=== PATIENT | female | born 1950 ===

== ENCOUNTER 2016-11-01 08:47 | Emergency (ER) | payer MEDICARE ==
[2016-11-01 08:57] VITALS: TEMP 98.7
[2016-11-01] MEDS ORDERED: Sodium Chloride 0.9% 500 ML IV STA (09:27)
[2016-11-01] MEDS ORDERED: Ciprofloxacin/Dexamethasone OTIC SUSP AS STA (09:29)
--- NOTE | 2016-11-01 09:37 | ED PDOC ---
Arrival/HPI - General Historian: Patient - History of Present Illness Time/Duration: Other (3 days) Context: Home - General Chief Complaint: ENT Problem Time Seen by Provider: 11/01/16 09:12 - History of Present Illness Narrative History of Present Illness (Text): 11/01/16 09:15 This 66 yo female with pmh dm, hiperlipidemia, hypothyroidism, chronic vertigo, tinnitus, s/p cholecystectomy, presents to this ED c/o left ear pain, worsening of vertigo, with nausea x 3 days. Patient admits a recent URI symptoms. She still feels with nasal congestion. Patient denies fever, sob, cp, cough, abdominal pain, vomiting, diarrhea, weakness, paresthesias, diplopia, dysarthria , cms, recent trauma, recent surgery, Denies hearing changes (Caity Singh) Past Medical History - Provider Review Nursing Documentation Reviewed: Yes - Cardiac Hx Cardiac Disorders: Yes - Pulmonary Hx Respiratory Disorders: No - Neurological Hx Neurological Disorder: Yes Hx Vertigo: Yes - HEENT Hx HEENT Disorder: No - Renal Hx Renal Disorder: No - Endocrine/Metabolic Hx Endocrine Disorders: Yes Hx Diabetes Mellitus Type 2: Yes - Hematological/Oncological Hx Blood Disorders: No - Integumentary Hx Dermatological Disorder: No - Musculoskeletal/Rheumatological Hx Musculoskeletal Disorders: No - Gastrointestinal Hx Gastrointestinal Disorders: No - Genitourinary/Gynecological Hx Genitourinary Disorders: No - Psychiatric Hx Psychophysiologic Disorder: No Hx Substance Use: No - Surgical History Hx Cholecystectomy: Yes Family/Social History - Physician Review Nursing Documentation Reviewed: Yes Family/Social History: No Known Family HX Smoking Status: Never Smoked Hx Alcohol Use: No Hx Substance Use: No Allergies/Home Meds Allergies/Adverse Reactions: Allergies No Known Allergies Allergy (Verified 11/01/16 08:56) Home Medications: Home Meds Medication Instructions Recorded Confirmed Empagliflozin [Jardiance] 10 mg PO DAILY 11/01/16 11/01/16 Levothyroxine [Synthroid] 25 mcg PO DAILY 11/01/16 11/01/16 Meclizine [Antivert] 1 tab PO TID PRN 11/01/16 11/01/16 Pioglitazone [Actos] 45 mg PO DAILY 11/01/16 11/01/16 Rosuvastatin Calcium [Crestor] 10 mg PO DAILY 11/01/16 11/01/16 Review of Systems - Review of Systems Constitutional: Normal. absent: Fatigue, Weight Change, Night Sweats Eyes: Normal. absent: Vision Changes, Photophobia ENT: Rhinorrhea, Other (see hpi) Respiratory: Normal Cardiovascular: Normal. absent: Chest Pain, Palpitations Gastrointestinal: Nausea. absent: Abdominal Pain, Vomiting Genitourinary Female: Normal. absent: Frequency, Hematuria Musculoskeletal: Normal. absent: Back Pain, Neck Pain Skin: Normal. absent: Rash Neurological: Dizziness (pmh. chronic vertigo, worsening last 3 days). absent: Headache, Focal Weakness, Gait Changes, Speech Changes, Facial Droop, Disequilibrium, Seizure Endocrine: Normal Hemo/Lymphatic: Normal Psychiatric: Normal Physical Exam Temperature: Afebrile Blood Pressure: Normal Pulse: Regular Respiratory Rate: Normal Appearance: Positive for: Well-Appearing, Non-Toxic, Comfortable Pain Distress: None Mental Status: Positive for: Alert and Oriented X 3 - Systems Exam Head: Present: Atraumatic, Normocephalic Pupils: Present: PERRL Extroacular Muscles: Present: EOMI Conjunctiva: Present: Normal Ears: Present: NORMAL TM. No: Normal Canal (left ear canal mild swelling with trace discharge. No facial rash), TM Bulging, TM Perf Mouth: Present: Moist Mucous Membranes Pharnyx: Present: Normal. No: ERYTHEMA, EXUDATE, TONSILS ENLARGED Nose (External): Present: Atraumatic Nose (Internal): Present: Rhinorrhea (mild) Neck: Present: Normal Range of Motion Respiratory/Chest: Present: Clear to Auscultation, Good Air Exchange. No: Respiratory Distress, Accessory Muscle Use Cardiovascular: Present: Regular Rate and Rhythm, Normal S1, S2. No: Murmurs Abdomen: Present: Normal Bowel Sounds. No: Tenderness, Distention, Peritoneal Signs Back: Present: Normal Inspection Upper Extremity: Present: Normal Inspection. No: Cyanosis, Edema Lower Extremity: Present: Normal Inspection. No: Edema Neurological: Present: GCS=15, CN II-XII Intact, Speech Normal, Motor Func Grossly Intact, Normal Sensory Function, Memory Normal Skin: Present: Warm, Dry, Normal Color. No: Rashes Psychiatric: Present: Alert, Oriented x 3, Normal Insight, Normal Concentration Vital Signs Temp Pulse Resp BP Pulse Ox 11/01/16 14:15 82 18 101/54 L 98 11/01/16 12:53 89 18 98/54 L 96 11/01/16 10:08 69 18 115/60 98 11/01/16 08:56 98.7 F 75 16 112/73 97 Medical Decision Making Re-evaluation Time: 13:39 Reassessment Condition: Re-examined, Improved - Lab Interpretations I have reviewed the lab results: Yes Interpretation: No clinic. lab abnormalty - EKG Interpretation Interpreted by ED Physician: Yes (NSR @ [address] changes. Normal interval ) Type: 12 lead EKG Comparison: No previous EKG avail. ED Course and Treatment: I was available for consultation during PA evaluation. The chart was reviewed by me, and I agree with disposition. The documented history was done by the physician kettleman. The documented physical exam was done by the physician kettleman. The documented procedures were done by the physician kettleman. (Jeremi Long) 11/01/16 12:20 Patient is requesting food. Patient continues with mild dizziness. I will revaluate patient after patient eat her lunch. 11/01/16 13:38 Re-evaluation. Patient feels better. Discussed results and plan with patient who expresses understanding. All questions answered and there is agreement with the plan to discharge home with instructions. Patient stable for discharge. Return if symptoms persist or worsen. Patient stated her symptoms have improved. patient has a normal gait, and she walks without assistance. No neuro focal deficits Patient was given Ciprodex Otic, and instructed in [place] to apply 4 drops on left ear BID x 7 days. (Caity Singh) - Lab Interpretations Microbiology Results: Microbiology Results 11/01/16 11:46 Urine Urine Culture - Final No Growth (<1,000 CFU/ML) Lab Results: 11/01/16 09:35 11/01/16 09:35 Lab Results 11/01/16 11:46: Urine Color Yellow, Urine Appearance Clear, Urine pH 7.0, Ur Specific [place] 1.010, Urine Protein Negative, Urine Glucose (UA) >=1000, Urine Ketones Trace H, Urine Blood Negative, Urine Nitrate Negative, Urine Bilirubin Negative, Urine Urobilinogen 1.0 H, Ur Leukocyte Esterase Negative 11/01/16 09:35: Sodium 143, Potassium 4.2, Chloride 102, Carbon Dioxide 30, Anion Gap 15, BUN 12, Creatinine 0.5, Est GFR ( Amer) > 60, Est GFR (Non- Af Amer) > 60, Random Glucose 110, Calcium 9.6, Magnesium 2.2, Total Bilirubin 0.9, AST 29, ALT 32, Alkaline Phosphatase 83, Lactate Dehydrogenase 436, Total Creatine Kinase 29 L, Troponin I < 0.01, NT-Pro-B Natriuret Pep 153, Total Protein 7.7, Albumin 4.2, Globulin 3.5, Albumin/Globulin Ratio 1.2 11/01/16 09:35: WBC 4.7, RBC 4.02, Hgb 12.5, Hct 38.2, MCV 95.0, MCH 31.1, MCHC 32.7, RDW 13.6, Plt Count 224, MPV 9.8, Gran % 57.4, Lymph % (Auto) 29.6, [place] % (Auto) 10.9 H, Eos % (Auto) 1.5, Baso % (Auto) 0.6, Gran # 2.68, Lymph # 1.4, [place] # 0.5, Eos # 0.1, Baso # 0.03 - RAD Interpretation Narrative RAD Interpretations (Text): 11/01/16 10:23 Accession No. : [id number] Patient Name / ID : SHAWN GÓMEZ / [id number] Exam Date : 11/01/2016 09:47:04 ( Approved ) Study Comment : Sex / Age : F / 66Y Creator : Diogenes Arango MD Dictator : Diogenes Arango MD Windows Desktop Support : Oncology Social Work : Diogenes Arango MD Approver2 : Report Date : 11/01/2016 10:08:31 My Comment : PROCEDURE: CT HEAD WITHOUT CONTRAST. HISTORY: dizziness COMPARISON: None available. TECHNIQUE: Axial computed tomography images were obtained through the head/brain without intravenous contrast. Radiation dose: Total exam DLP = 687 mGy-cm. This CT exam was performed using one or more of the following dose reduction techniques: Automated exposure control, adjustment of the mA and/or kV according to patient size, and/or use of iterative reconstruction technique. FINDINGS: HEMORRHAGE: No intracranial hemorrhage. BRAIN: No mass effect or edema. No atrophy or chronic microvascular ischemic changes. VENTRICLES: Unremarkable. No hydrocephalus. CALVARIUM: Unremarkable. PARANASAL SINUSES: Unremarkable as visualized. No significant inflammatory changes. MASTOID AIR CELLS: Unremarkable as visualized. No inflammatory changes. OTHER FINDINGS: None. IMPRESSION: Normal CT of the Head. 11/01/16 10:24 CXR: NAD (Caity Singh) Radiology Orders: 11/01/16 09:25 HEAD W/O CONTRAST [CT] Stat 11/01/16 09:27 CHEST PORTABLE [RAD] Stat - Medication Orders Current Medication Orders: Discontinued Medications Ciprofloxacin/Dexamethasone (Ciprodex Otic) 4 drop STAT STA Stop: 11/01/16 09:30 Last Admin: 11/01/16 09:59 Dose: 4 drop Sodium Chloride (Sodium Chloride 0.9%) 500 mls @ 999 mls/hr IV .Q31M STA Stop: 11/01/16 09:57 Last Admin: 11/01/16 09:41 Dose: 999 mls/hr Meclizine HCl (Antivert) 50 mg PO STAT STA Stop: 11/01/16 09:28 Last Admin: 11/01/16 10:00 Dose: 50 mg Ondansetron HCl (Zofran Inj) 4 mg IVP STAT STA Stop: 11/01/16 09:29 Last Admin: 11/01/16 10:00 Dose: 4 mg Disposition/Present on Arrival - Present on Arrival Any Indicators Present on Arrival: No History of DVT/PE: No History of Uncontrolled Diabetes: No Urinary Catheter: No History of Decub. Ulcer: No History Surgical Site Infection Following: None - Disposition Have Diagnosis and Disposition been Completed?: Yes Disposition Time: 13:40 Patient Plan: Discharge - Disposition Diagnosis: Benign paroxysmal vertigo, Otitis externa Disposition: HOME/ ROUTINE Condition: GOOD Discharge Instructions (ExitCare): Benign Paroxysmal Positional Vertigo (ED) Additional Instructions: llame a lovelace doctor para seguimiento medico. [place] la medicina lizeth esta prescrita. Llame a la oficina del neurologo y el otorrinolaingologo. Regrese a la emergencia si simptoma empeora. [place] 4 gotas de antibiotico en el oido jacek 2 veces al brent por 7-10 more. Prescriptions: Meclizine [Meclizine*] 25 mg PO Q6 PRN #30 tab PRN Reason: Dizziness Ondansetron ODT [Zofran ODT] 4 mg PO Q4H PRN #15 odt PRN Reason: Nausea/Vomiting Referrals: Jesus Patel Jr., MD [Primary Care Provider] - Follow up with primary Donald Lopez MD [Staff Provider] - Follow up with primary Fidencio Moreno DO [Staff Provider] - Follow up with primary Forms: Fitfully (Hungarian)
[2016-11-01 09:48] LABS: BASO # 0.03 K/mm3 (0.0-2.0); BASO % 0.6 % (0.0-3.0); EOS # 0.1 (0.0-0.7); EOS % 1.5 % (1.5-5.0); GRAN # 2.68 (1.4-6.5); GRAN % 57.4 % (50.0-68.0); HEMOGLOBIN 12.5 gm/dL (12.0-16.0); LYMPH # 1.4 (1.2-3.4); LYMPH % 29.6 % (22.0-35.0); MEAN CORPUSCULAR HEMOGLOBIN 31.1 pg (25.0-35.0); MEAN CORPUSCULAR HGB CONC 32.7 g/dl (31.0-37.0); MEAN PLATELET VOLUME 9.8 fl (7.0-11.0); MONO # 0.5 (0.1-0.6); MONO % 10.9 % (1.0-6.0); PLATELET COUNT 224 10^3/uL (120.0-450.0); RBC 4.02 10^6/uL (3.5-6.1); RED CELL DISTRIBUTION WIDTH 13.6 % (11.5-14.5); WHITE BLOOD COUNT 4.7 10^3/ul (4.5-11.0)
[2016-11-01 10:00] LABS: ALB/GLOB RATIO 1.2 (1.1-1.8); ALBUMIN 4.2 g/dL (3.0-4.8); ALT/SGPT 32 U/L (7-56); AST/SGOT 29 U/L (15-39); BLOOD UREA NITROGEN 12 mg/dL (7-21); CALCIUM 9.6 mg/dL (8.4-10.5); GFR AFRICAN-AMERICAN > 60; GFR NON-AFRICAN AMERICAN > 60; MAGNESIUM 2.2 mg/dL (1.7-2.2)
[2016-11-01 10:09] VITALS: RESP 18
--- NOTE | 2016-11-01 10:10 | CT ---
PROCEDURE: CT HEAD WITHOUT CONTRAST. HISTORY: dizziness COMPARISON: None available. TECHNIQUE: Axial computed tomography images were obtained through the head/brain without intravenous contrast. Radiation dose: Total exam DLP = 687 mGy-cm. This CT exam was performed using one or more of the following dose reduction techniques: Automated exposure control, adjustment of the mA and/or kV according to patient size, and/or use of iterative reconstruction technique. FINDINGS: HEMORRHAGE: No intracranial hemorrhage. BRAIN: No mass effect or edema. No atrophy or chronic microvascular ischemic changes. VENTRICLES: Unremarkable. No hydrocephalus. CALVARIUM: Unremarkable. PARANASAL SINUSES: Unremarkable as visualized. No significant inflammatory changes. MASTOID AIR CELLS: Unremarkable as visualized. No inflammatory changes. OTHER FINDINGS: None. IMPRESSION: Normal CT of the Head.
[2016-11-01 10:11] LABS: B-TYPE NATRIURETIC PEPTIDE 153 pg/mL (0-450)
[2016-11-01 10:18] LABS: TROPONIN I < 0.01 ng/mL
[2016-11-01 11:50] LABS: URINE BILIRUBIN NEGATIVE (NEGATIVE); URINE BLOOD NEGATIVE (NEGATIVE); URINE GLUCOSE (UA) >=1000 mg/dL (NEGATIVE); URINE LEUKOCYTE ESTERASE NEGATIVE Leu/uL (NEGATIVE); URINE NITRATE NEGATIVE (NEGATIVE); URINE PROTEIN NEGATIVE mg/dL (<30 mg/dL)
[2016-11-01 11:51] LABS: URINE APPEARANCE CLEAR (CLEAR); URINE COLOR YELLOW (YELLOW)
--- NOTE | 2016-11-01 12:03 | CARD ---
APPROVED REPORT EKG Measurement Heart [id number] <Conclusion> Normal sinus rhythm Normal ECG
--- NOTE | 2016-11-01 14:18 | RAD ---
HISTORY: dizziness COMPARISON: Chest x-ray performed 11/01/16 TECHNIQUE: Chest, one view. FINDINGS: Examination limited by habitus. LUNGS: No focal consolidation. Please note that chest x-ray has limited sensitivity for the detection of pulmonary masses. PLEURA: No significant pleural effusion identified. No definite pneumothorax . CARDIOVASCULAR: Heart size appears within normal limits. Atherosclerotic calcifications of the aortic knob. OSSEOUS STRUCTURES: Degenerative changes. VISUALIZED UPPER ABDOMEN: Right upper quadrant surgical clips. OTHER FINDINGS: None. IMPRESSION: No focal consolidation, significant pleural effusion, or definite pneumothorax identified.
[2016-11-01 14:25] VITALS: BP 101/54; PULSE 82; O2SAT 98
== END 2016-11-01 14:15 | disposition home or self-care (01) ==
LOC: MERGE 08:47 → ED 08:47
DX: H81.10 Benign paroxysmal vertigo, unspecified ear (principal); H60.92 Unspecified otitis externa, left ear
CPT/HCPCS: 70450; 71010; 80053; 81003; 82550; 83615; 83735; 83880; 84484; 85025; 87086; 93005; 96374; 99284; J2405; J7040

== ENCOUNTER 2016-11-22 22:39 | Inpatient (IN) | payer MEDICARE, OTHER ==
[2016-11-22] MEDS ORDERED: cefTRIAXone 1 gm 1 GM/100 ML BAG IVPB STA (23:18)
[2016-11-22] MEDS ORDERED: Vancomycin 1gm in NS 250ml 1 GM/250 ML BAG IVPB STA (23:18)
[2016-11-22 23:43] LABS: VENOUS BLOOD GAS BASE EXCESS 0.9 mmol/L (0.0-2.0); VENOUS BLOOD PH 7.27 (7.32-7.43)
--- NOTE | 2016-11-22 23:43 | ED PDOC ---
Arrival/HPI - General Historian: Patient - History of Present Illness Time/Duration: 24 hours Symptom Onset: Gradual Symptom Course: Unchanged Quality: Fullness Severity Level: 6 Activities at Onset: Rest Context: Sitting - General Chief Complaint: GI Problem Time Seen by Provider: 11/22/16 22:46 - History of Present Illness Narrative History of Present Illness (Text): 11/22/16 23:29 This is a 66 yr. old female with a past medical history of hyperlipidemia, hypothyroidism, chronic vertigo, and s/p cholecystectomy who comes to [facility] complaining of abdominal pain, nausea, vomiting, and diarrhea for one day. The patient says the pain is located epigastrium and describes the pain as gnawing in nature with no radiation. The patient reports being able to tolerate liquids but unable to tolerate food without vomiting. The patient reports three episodes of vomiting were she described having an acidic taste in her mouth afterwards. She reports taking a Nexium for her symptoms but denies any improvement in them. At the same onset of her above stated symptoms she also reports her urine being very warm upon urination. She reports some chills and diarrhea. She denies any chest pain, or any other complaints. 11/23/16 04:12 (Zhang Cooper) Past Medical History - Provider Review Nursing Documentation Reviewed: Yes - Infectious Disease Hx of Infectious Diseases: None - Cardiac Hx Cardiac Disorders: Yes - Pulmonary Hx Respiratory Disorders: No - Neurological Hx Neurological Disorder: Yes Hx Vertigo: Yes - HEENT Hx HEENT Disorder: No - Renal Hx Renal Disorder: No - Endocrine/Metabolic Hx Endocrine Disorders: Yes Hx Diabetes Mellitus Type 2: Yes - Hematological/Oncological Hx Blood Disorders: No - Integumentary Hx Dermatological Disorder: No - Musculoskeletal/Rheumatological Hx Musculoskeletal Disorders: No - Gastrointestinal Hx Gastrointestinal Disorders: No - Genitourinary/Gynecological Hx Genitourinary Disorders: No - Psychiatric Hx Psychophysiologic Disorder: No Hx Substance Use: No - Surgical History Hx Cholecystectomy: Yes - Anesthesia Hx Anesthesia: Yes Hx Anesthesia Reactions: No Hx Malignant Hyperthermia: No Family/Social History - Physician Review Nursing Documentation Reviewed: Yes Family/Social History: No Known Family HX Smoking Status: Never Smoked Hx Alcohol Use: No Hx Substance Use: No Allergies/Home Meds Allergies/Adverse Reactions: Allergies No Known Allergies Allergy (Verified 11/01/16 08:56) Home Medications: Home Meds Medication Instructions Recorded Confirmed Empagliflozin [Jardiance] 10 mg PO DAILY 11/01/16 11/22/16 Levothyroxine [Synthroid] 25 mcg PO DAILY 11/01/16 11/22/16 Pioglitazone [Actos] 45 mg PO DAILY 11/01/16 11/22/16 Rosuvastatin Calcium [Crestor] 10 mg PO DAILY 11/01/16 11/22/16 Alendronate [Fosamax] 1 tab PO Q7D 11/22/16 11/22/16 Calcium Carbonate [Calcium] 1 tab PO DAILY 11/22/16 11/22/16 Cyanocobalamin [Vitamin B12 100 250 mcg PO DAILY 11/22/16 11/22/16 mcg Tab] Ergocalciferol [Drisdol 50,000 1 cap PO Q7D 11/22/16 11/22/16 Intl Units Cap] Linaclotide [Linzess] 1 cap PO DAILY 11/22/16 11/22/16 Review of Systems - Physician Review All systems were reviewed & negative as marked: Yes - Review of Systems Constitutional: Fevers, Night Sweats. absent: Other Eyes: Normal. absent: Vision Changes, Eye Pain ENT: Normal. absent: Sore Throat, Rhinorrhea, Sinus Congestion Respiratory: Normal. absent: Cough, Sputum, Wheezing Cardiovascular: Normal. absent: Chest Pain, Palpitations, Syncope Gastrointestinal: Abdominal Pain (epigastric discomfort reported), Diarrhea (3 episodes of non-bloody loose stools), Nausea, Vomiting, Food Intolerance (can't keep food down). absent: Constipation, Hematochezia, Hematemesis Genitourinary Female: Other (reports increase in warmth upon urinating). absent : Frequency, Hematuria Musculoskeletal: Normal. absent: Back Pain, Myalgias Skin: Normal. absent: Rash, Laceration, Cellulitis Neurological: Normal. absent: Headache, Dizziness, Focal Weakness Endocrine: Normal. absent: Polyuria, Polydipsia Hemo/Lymphatic: Normal. absent: Easy Bleeding, Easy Bruising Psychiatric: Normal Physical Exam Vital Signs Reviewed: Yes Temperature: Febrile Blood Pressure: Normal Pulse: Tachycardic Respiratory Rate: Normal Appearance: Positive for: Well-Appearing, Non-Toxic, Comfortable Pain Distress: Mild Mental Status: Positive for: Alert and Oriented X 3 - Systems Exam Head: Present: Atraumatic, Normocephalic Pupils: Present: PERRL. No: Sluggish Extroacular Muscles: Present: EOMI. No: Gaze Palsy Conjunctiva: Present: Normal. No: Injected, Icteric Mouth: Present: Moist Mucous Membranes, Normal Tounge. No: Drooling Pharnyx: Present: Normal. No: ERYTHEMA, EXUDATE, Peritonsilar Swelling Neck: Present: Normal Range of Motion. No: JVD, Lymphadenopathy Respiratory/Chest: Present: Clear to Auscultation, Good Air Exchange. No: Respiratory Distress, Accessory Muscle Use, Wheezes, Decreased Breath Sounds Cardiovascular: Present: Normal S1, S2, Tachycardic. No: Bradycardic Abdomen: Present: Tenderness (located midepigastrium), Normal Bowel Sounds. No : Distention, Peritoneal Signs, Guarding Back: Present: Normal Inspection. No: CVA Tenderness Upper Extremity: Present: Normal Inspection. No: Edema, Swelling, Erythema Lower Extremity: Present: Normal Inspection. No: Edema Neurological: Present: CN II-XII Intact, Speech Normal Skin: Present: Warm, Dry, Normal Color. No: Rashes Psychiatric: Present: Alert, Oriented x 3, Normal Insight Medical Decision Making ED Course and Treatment: 11/22/16 23:50 Patient came into [facility] with complaints of nausea, vomiting and diarrhea for one day. I ordered labs including, cbc w/diff, cmp, chest xray,u/a, urine cx, and blood cx. Patient will be re-evaluated once lab results return. Chest xray: Possible Right lower lobe consolidation Blood gas showed lactate level of 3.0. Code kashif was called. After initial blood work return a CT of the chest, abdomen and pelvis with contrast was ordered to r/o any intra-abdominal abscess. Patient will be admitted to Dr. Pond Service. 11/23/16 03:27 (Zhang Cooper) 11/23/16 01:19 Patient seen and examined with resident Came up with treatment and disposition plan with resident 11/23/16 03:33 fluids and abx ordered repeat LA decreased pt states she has no PMD at [facility] will be admitted to Dr. Lindsey service for further w/u pt aware of and agrees with plan 11/23/16 06:[address] Pond in detail, agrees with admission to her service asked to add flagyl and fluids to pt's management, and Dr. Anguiano on consult ( Jeremi Long) - Lab Interpretations Lab Results: 11/22/16 23:20 11/22/16 23:20 Lab Results 11/23/16 02:35: pO2 220 H, VBG pH 7.39, VBG pCO2 40.0, VBG HCO3 24.2, VBG Total CO2 25.4, VBG O2 Sat (Calc) 98.7 H, VBG Base Excess -0.7 L, VBG Potassium 2.9 L , Sodium 143.0, Chloride 112.0 H, Glucose 132 H, Lactate 0.9, FiO2 21.0, Venous Blood Potassium 2.9 L 11/23/16 00:20: Urine Color Yellow, Urine Appearance Clear, Urine pH 7.0, Ur Specific [place] 1.010, Urine Protein Negative, Urine Glucose (UA) >=1000, Urine Ketones Negative, Urine Blood Trace-intact H, Urine Nitrate Negative, Urine Bilirubin Negative, Urine Urobilinogen 1.0 H, Ur Leukocyte Esterase Negative, Urine RBC 0 - 2, Urine WBC 0 - 2, Ur Epithelial Cells 3 - 4, Urine Bacteria Mod, Urine Other Utrans 11/22/16 23:20: Sodium 142, Chloride 103, Potassium 3.4 L, Carbon Dioxide 29, Anion Gap 13, BUN 14, Creatinine 0.6, Est GFR ( Amer) > 60, Est GFR (Non- Af Amer) > 60, Random Glucose 105, Calcium 9.1, Phosphorus 3.3, Magnesium 2.0, Total Bilirubin 1.5 H, AST 2502 H, ALT 893 H, Alkaline Phosphatase 176 H, Total Protein 7.6, Albumin 4.6, Globulin 3.0, Albumin/Globulin Ratio 1.5 11/22/16 23:20: pO2 27 L, VBG pH 7.27 L, VBG pCO2 64.0 H, VBG HCO3 29.4 H, VBG Total CO2 31.4 H, VBG O2 Sat (Calc) 52.8, VBG Base Excess 0.9, VBG Potassium 3.4 L, Sodium 141.0, Chloride 104.0, Glucose 109 H, Lactate 3.0 H, FiO2 21.0, Venous Blood Potassium 3.4 L 11/22/16 23:20: PT 10.6, INR 0.98, APTT 23.8 11/22/16 23:20: WBC 3.7 L D, RBC 3.85, Hgb 12.1, Hct 37.1, MCV 96.4, MCH 31.4, MCHC 32.6, RDW 14.1, Plt Count 192, MPV 9.8, Gran % 88.1 H, Lymph % (Auto) 10.8 L, [place] % (Auto) 1.1, Eos % (Auto) 0.0 L, Baso % (Auto) 0.0, Gran # 3.27, Lymph # 0.4 L, [place] # 0.0 L, Eos # 0.0, Baso # 0.00 - RAD Interpretation Radiology Orders: 11/22/16 23:18 CHEST PORTABLE [RAD] Stat 11/23/16 00:11 CHEST,ABDOMEN,PELVIS W/WO IV [CT] Stat - Medication Orders Current Medication Orders: Acetaminophen (Tylenol 325mg Tab) 975 mg PO ONCE PRN PRN Reason: Fever >100.4 F Stop: 11/23/16 07:00 Last Admin: 11/22/16 23:42 Dose: 975 mg Re-Assess: [facility] Pain/Vitals Document 11/23/16 00:42 RD (Rec: 11/23/16 01:35 RD [facility] [id number]) Vitals Temperature (97.6 F-99.6 F) 100.9 F Temperature Source Rectal Metronidazole (Flagyl) 100 mls @ 100 mls/hr IVPB STAT STA PRN Reason: Protocol Stop: 11/23/16 07:33 Discontinued Medications Ceftriaxone Sodium (Rocephin 1 Gram Ivpb) 1 gm in 100 mls @ 200 mls/hr IVPB STAT STA PRN Reason: Protocol Stop: 11/22/16 23:47 Last Admin: 11/22/16 23:42 Dose: 200 mls/hr Sodium Chloride 2,500 ml/ IV (SUPPLIES) 2,500 mls @ 3,674.1 mls/hr IV ONCE ONE PRN Reason: 60 ML/KG/HR Stop: 11/22/16 23:19 Last Admin: 11/22/16 23:42 Dose: 3,674.1 mls/hr Vancomycin HCl (Vancomycin 1gm) 1 gm in 250 mls @ 167 mls/hr IVPB STAT STA PRN Reason: Protocol Stop: 11/23/16 00:47 Last Admin: 11/23/16 00:04 Dose: 167 mls/hr Iohexol (Omnipaque 350 100 Ml) Confirm Administered Dose 350 mg .ROUTE .[employer]-MED ONE Stop: 11/23/16 01:03 Disposition/Present on Arrival - Present on Arrival Any Indicators Present on Arrival: No History of DVT/PE: No History of Uncontrolled Diabetes: No Urinary Catheter: No History of Decub. Ulcer: No History Surgical Site Infection Following: None - Disposition Have Diagnosis and Disposition been Completed?: Yes Disposition Time: 03:28 Patient Plan: Admission - Disposition Diagnosis: Sepsis Disposition: HOSPITALIZED Patient Problems: Current Active Problems Problem Status Onset Sepsis Acute Condition: FAIR
[2016-11-22 23:47] LABS: GRAN # 3.27 (1.4-6.5); GRAN % 88.1 % (50.0-68.0); HEMATOCRIT 37.1 % (36.0-48.0); LYMPH # 0.4 (1.2-3.4); LYMPH % 10.8 % (22.0-35.0); MEAN CELL VOLUME 96.4 fl (80.0-105.0); MEAN CORPUSCULAR HEMOGLOBIN 31.4 pg (25.0-35.0); MEAN CORPUSCULAR HGB CONC 32.6 g/dl (31.0-37.0); MEAN PLATELET VOLUME 9.8 fl (7.0-11.0); MONO % 1.1 % (1.0-6.0); RED CELL DISTRIBUTION WIDTH 14.1 % (11.5-14.5); WHITE BLOOD COUNT 3.7 10^3/ul (4.5-11.0)
[2016-11-22 23:52] LABS: ALB/GLOB RATIO 1.5 (1.1-1.8); ALKALINE PHOSPHATASE 176 U/L (38-133); ALT/SGPT 893 U/L (7-56); BILIRUBIN,TOTAL 1.5 mg/dL (0.2-1.3); BLOOD UREA NITROGEN 14 mg/dL (7-21); CALCIUM 9.1 mg/dL (8.4-10.5); CARBON DIOXIDE 29 mmol/L (21-33); CHLORIDE 103 mmol/L (98-107); GFR AFRICAN-AMERICAN > 60; GLUCOSE,RANDOM 105 mg/dL (70-110); PHOSPHOROUS 3.3 mg/dL (2.5-4.5); POTASSIUM 3.4 mmol/L (3.6-5.0); SODIUM 142 mmol/L (132-148); TOTAL PROTEIN 7.6 g/dL (5.8-8.3)
[2016-11-22 23:55] LABS: INR 0.98 (0.93-1.08); PARTIAL THROMBOPLASTIN TIME 23.8 Seconds (23.7-30.8)
[2016-11-23 00:13] LABS: AST/SGOT 2502 U/L (15-39)
--- NOTE | 2016-11-23 00:19 | PCM.SEPTIC ---
Sepsis Progress Note - Reassessment Type Date of Evaluation: 11/23/16 Time of Evaluation: 00:19 Reassessment Type: Non-invasive reassessment - Non Invasive Reassessment Were the most recent vital sign reviewed: Yes Vital Sign (Latest): Temp Pulse Resp BP Pulse Ox 103.9 F H 122 H 18 103/42 L 98 11/22/16 23:42 11/22/16 23:59 11/22/16 23:59 11/22/16 23:59 11/22/16 23:59 Cardiovascular: Yes: Regular Rate, Rhythm, Tachycardia Respiratory: Yes: Normal Breath Sounds Capillary Refill: Normal (Less than 2 sec) Pulses: Normal Radial, Normal Dorsalis Pedis, Normal Posterior Tibialis Skin: Warm, Dry
[2016-11-23 00:35] LABS: URINE BILIRUBIN NEGATIVE (NEGATIVE); URINE BLOOD TRACE-INTACT (NEGATIVE); URINE GLUCOSE (UA) >=1000 mg/dL (NEGATIVE); URINE KETONE NEGATIVE (NEGATIVE); URINE LEUKOCYTE ESTERASE NEGATIVE Leu/uL (NEGATIVE); URINE PROTEIN NEGATIVE mg/dL (<30 mg/dL)
[2016-11-23 00:39] LABS: URINE APPEARANCE CLEAR (CLEAR); URINE COLOR YELLOW (YELLOW)
[2016-11-23] MEDS ORDERED: Iohexol 350 MG/100 ML VIAL ONE (01:02)
[2016-11-23 01:06] LABS: URINE BACTERIA MOD (NEG); URINE RBC 0 - 2 /hpf (0-2); URINE WBC 0 - 2 /hpf (0-6)
--- NOTE | 2016-11-23 02:49 | CT ---
EXAM: CT Chest Without and With Intravenous Contrast CLINICAL HISTORY: 66 years old, female; Pain; Abdominal pain; Chest pain; Patient HX: R/O intrabdominal abscess TECHNIQUE: Axial computed tomography images of the chest without and with intravenous contrast. All CT scans at this facility use one or more dose reduction techniques, viz.: automated exposure control; ma/kV adjustment per patient size (including targeted exams where dose is matched to indication; i.e. head); or iterative reconstruction technique. Coronal and sagittal reformatted images were created and reviewed. CONTRAST: 45 mL of OMNIPAQUE 350 administered intravenously. COMPARISON: No relevant prior studies available. FINDINGS: Lungs: Mild underinflation. Mild mosaic pattern of lung parenchyma. Mild interlobular septal thickening. No consolidation. 0.3 cm RIGHT upper lobe nodule. Pleural space: No pneumothorax. No significant effusion. Heart: No cardiomegaly. No significant pericardial effusion. Thyroid: Few subcentimeter cysts or nodules. Bones/joints: Small calcification along LEFT shoulder. Mild degenerative changes of spine. No acute fracture. Soft tissues: Unremarkable. Vasculature: Mild atherosclerotic disease. No aneurysm. Lymph nodes: No pathologically enlarged lymph nodes. IMPRESSION: 1. No intrathoracic abscess. 2. Possible early interstitial edema. Clinical correlation is needed. 3. Pulmonary nodule. For low-risk patients, no follow-up is necessary. For high-risk patients (smoking history or other known risk factors) an optional CT at 12 months could be performed. 4. Incidental/non-acute findings are described above. EXAM: CT Abdomen and Pelvis Without and With Intravenous Contrast CLINICAL HISTORY: 66 years old, female; Pain; Abdominal pain; Chest pain; Patient HX: R/O intrabdominal abscess TECHNIQUE: Axial computed tomography images of the abdomen and pelvis without and with intravenous contrast. All CT scans at this facility use one or more dose reduction techniques, viz.: automated exposure control; ma/kV adjustment per patient size (including targeted exams where dose is matched to indication; i.e. head); or iterative reconstruction technique. Coronal and sagittal reformatted images were created and reviewed. CONTRAST: 45 mL of OMNIPAQUE 350 administered intravenously. COMPARISON: No relevant prior studies available. FINDINGS: ABDOMEN: Liver: Mild periportal edema. Gallbladder and bile ducts: Cholecystectomy. No ductal dilation. Pancreas: Unremarkable. No mass. No ductal dilation. Spleen: No splenomegaly. Adrenals: No mass. Kidneys and ureters: Probable LEFT renal cyst. No hydronephrosis. Stomach and bowel: No definite mural thickening. No obstruction. Appendix: No findings to suggest acute appendicitis. PELVIS: Bladder: Unremarkable. No mass. No stones. Reproductive: Unremarkable as visualized. ABDOMEN and PELVIS: Intraperitoneal space: Trace free fluid within abdomen and pelvis. No free air. Bones/joints: Degenerative changes of spine. No acute fracture. Soft tissues: Unremarkable. Vasculature: Mild atherosclerotic disease. No aneurysm. Lymph nodes: No pathologically enlarged lymph nodes. IMPRESSION: 1. No intraabdominal abscess. 2. Trace ascites. 3. Periportal edema, nonspecific. 4. Incidental/non-acute findings are described above.
[2016-11-23 03:12] LABS: VENOUS BLOOD GAS BASE EXCESS -0.7 mmol/L (0.0-2.0); VENOUS BLOOD PH 7.39 (7.32-7.43)
[2016-11-23] MEDS ORDERED: metroNIDAZOLE IV 500 mg/100 ml 500 MG/100 ML BAG IVPB STA (06:34)
[2016-11-23] MEDS ORDERED: Sodium Chloride 0.9% 1,000 ML IV SCH (06:45)
--- NOTE | 2016-11-23 07:18 | PCM.SEPTIC ---
Sepsis Progress Note - Reassessment Type Date of Evaluation: 11/23/16 Time of Evaluation: 06:00 Reassessment Type: Non-invasive reassessment - Non Invasive Reassessment Were the most recent vital sign reviewed: Yes Vital Sign (Latest): Temp Pulse Resp BP Pulse Ox 100.4 F H 110 H 17 100/48 L 97 11/23/16 03:00 11/23/16 03:00 11/23/16 03:00 11/23/16 03:00 11/23/16 03:00 Cardiovascular: Yes: Regular Rate, Rhythm Respiratory: Yes: Normal Breath Sounds Capillary Refill: Normal (Less than 2 sec) Pulses: Normal Radial, Normal Dorsalis Pedis, Normal Posterior Tibialis Skin: Normal Color, Warm, Dry
[2016-11-23 10:17] LABS: VENOUS BLOOD GAS BASE EXCESS -1.3 mmol/L (0.0-2.0); VENOUS BLOOD PH 7.34 (7.32-7.43)
[2016-11-23] MEDS ORDERED: Potassium Chloride 20 mEq ER Tab PO ONE (10:43)
--- NOTE | 2016-11-23 11:15 | RAD ---
HISTORY: Sepsis Patient COMPARISON: 11/01/2016 FINDINGS: LUNGS: Bandlike opacity at both lung bases likely subsegmental atelectasis. Rule out developing pneumonia. Followup advised. PLEURA: No significant pleural effusion identified, no pneumothorax apparent. CARDIOVASCULAR: Normal heart size. Right hilar prominence most likely secondary to oblique positioning. OSSEOUS STRUCTURES: No significant abnormalities. VISUALIZED UPPER ABDOMEN: Normal. OTHER FINDINGS: None. IMPRESSION: Probable bibasilar subsegmental atelectasis. Rule out developing pneumonia. Followup advised.
[2016-11-23] MEDS: Insulin Reg-LOW-Coverage SC SCH ×3 (11:30→21:42)
[2016-11-23 12:41] LABS: ALB/GLOB RATIO 1.3 (1.1-1.8); ALKALINE PHOSPHATASE 142 U/L (38-133); ALT/SGPT 730 U/L (7-56); BILIRUBIN,TOTAL 1.1 mg/dL (0.2-1.3); BLOOD UREA NITROGEN 10 mg/dL (7-21); CALCIUM 8.3 mg/dL (8.4-10.5); CARBON DIOXIDE 24 mmol/L (21-33); CHLORIDE 108 mmol/L (98-107); GFR AFRICAN-AMERICAN > 60; GLUCOSE,RANDOM 100 mg/dL (70-110); POTASSIUM 3.2 mmol/L (3.6-5.0); SODIUM 140 mmol/L (132-148); TOTAL PROTEIN 5.9 g/dL (5.8-8.3)
[2016-11-23 12:48] LABS: AST/SGOT 1175 U/L (15-39)
--- NOTE | 2016-11-23 13:24 | CARD ---
APPROVED REPORT EKG Measurement Heart [id number] <Conclusion> Sinus tachycardia Possible Left atrial enlargement Borderline ECG
[2016-11-23] MEDS: metroNIDAZOLE IV 500 mg/100 ml 500 MG/100 ML BAG IVPB SCH ×2 (14:01→21:29)
[2016-11-23 14:28] LABS: VENOUS BLOOD GAS BASE EXCESS -1.3 mmol/L (0.0-2.0); VENOUS BLOOD PH 7.36 (7.32-7.43)
[2016-11-23 17:08] VITALS: BMI 26.9
[2016-11-24] MEDS: metroNIDAZOLE IV 500 mg/100 ml 500 MG/100 ML BAG IVPB SCH ×3 (06:07→22:05)
[2016-11-24] MEDS: Levothyroxine 25 MCG TAB PO SCH (06:08)
--- NOTE | 2016-11-24 06:38 | HP ---
DATE: 11/23/2016 HISTORY OF PRESENT ILLNESS: This 66-year-old female was examined at her bedside in the presences of her and nurse Jane Lazaro, registered nurse. The patient presented to [facility] ER late last evening with a chief complaint of abdominal pain with associated nausea, vomiting, and diarrhea for 24 hours. The patient has a past medical history of hyperlipidemia, hypothyroidism, chronic vertigo and is status post cholecystectomy. The patient described the discomfort in her abdomen as mid epigastric and stated it was worse after she ate; however, on the evening of admission she was unable to tolerate any food without vomiting. The patient admitted to 3 episodes of vomiting, felt acid reflux, and also had tried Nexium [id number] without relief. The patient in the emergency room was noted to have fever, neutropenia, and markedly elevated liver function testing with hypokalemia and was admitted for further evaluation of the above. The patient states she follows with Dr. Jesus Patel as her primary care physician and also was treated for GI complaints of constipation alternating with diarrhea for which she takes Linzess daily. She also stated she has a history of vitamin D deficiency, osteoporosis, hyperlipidemia, [id number] diabetes mellitus and hypothyroidism. OUTPATIENT MEDICATION: Included Linzess, Fosamax, weekly Drisdol, vitamin B12 daily, calcium carbonate daily, Crestor, Actos, Synthroid, and Jardiance. ALLERGIES: SHE DENIED ANY ALLERGIES TO MEDICATION. SOCIAL HISTORY: She stated she was non drinker, non smoker or non-IV drug misuser. She is a retired homemaker. FAMILY HISTORY: Noncontributory. PHYSICAL EXAMINATION GENERAL: The patient is in a normal sinus rhythm on the laundry housekeeper. There were no reports of ectopy or tachycardia. VITAL SIGNS: In the emergency room, she was noted to have a fever of 100.9 with a pulse of 115. At present, her temperature is 97, respirations 18, pulse 96, blood pressure 103/52 with the pulse ox of 97% on room air. community placement worker shows normal sinus rhythm. HEENT: Head is normocephalic, atraumatic. Eyes: No icterus. Ears: Clear. Throat: Noninjected. NECK: Supple. HEART: Regular S1 and S2. LUNGS: Clear to auscultation. ABDOMEN: Soft, nontender. No palpable organomegaly. No rebound, no guarding, no tenderness. EXTREMITIES: Show no clubbing, no cyanosis, no edema. SKIN: Without rash. NEUROLOGIC: Intact. PSYCHOLOGIC: Alert. VASCULAR: Legs are warm to touch. LABORATORY DATA: Admission potassium 3.4, bilirubin on admission 1.5, AST 2502, ALT 893, alkaline phosphatase 176. At present, her electrolytes are sodium 140, potassium 3.2, chloride 108, bicarb 24, BUN 10, creatinine 0.5, random blood sugar 177. Magnesium level is normal at 2.0, bilirubin 1.1, AST 1175, ALT 730, alk phos 142. T4 normal at 7.3. White count 3700, hemoglobin 12.1, hematocrit 37.1, platelets 192,000. PT/INR is 0.98, PTT 23.8, normal. Urinalysis: Moderate bacteria. Chest x-ray: Showed probable bibasilar subsegmental atelectasis, rule out developing pneumonia, followup advised. CT of chest, abdomen and pelvis showed no effusion, no consolidation at 0.3 cm right upper lobe nodule for which a 12-month CT followup was recommended. The patient was told to do this fup CT with her PMD as recommended. Abdominal pelvic CT showed no intraabdominal abscess, trace ascites, periportal edema, nonspecific, with no pathological enlarged lymph nodes noted. Blood and urine culture were sent. The patient denied any cough, fever or chills at present. IMPRESSION: This is a 66-year-old female with probable sepsis, elevated liver function testing, rule out hepatitis also with comorbidities of irritable bowel syndrome, history of vitamin D deficiency, osteoporosis, hypokalemia, hyperlipidemia, [id number] diabetes mellitus, hyperthyroidism. PLAN: At present is to continue Rocephin 1 g IV q. 24, Flagyl 500 mg IV q. 8 while awaiting infectious disease consultation by Dr. Guy Laughlin. Also, the patient will be given regular low dose insulin coverage a.c. meals and at bedtime, Pepcid 20 mg p.o. b.i.d., Synthroid 25 mcg p.o. daily, and Zofran 4 mg IV q. 6 hours p.r.n. nausea and vomiting. The patient will have a repeat comprehensive metabolic panel as well as a CBC in the a.m. She is awaiting gastrointestinal evaluation by Dr. Michelle Anguiano from GI. Oral potassium 40 mEq has been ordered with a repeat potassium level ordered for the a.m. with hypokaliemia most likely secondary to her episodes of vomiting on admission. She continues on heart healthy soft plan, diabetic diet and IV fluids have been discontinued since the patient is able to tolerate oral medication, fluids, and food. All of the above has been discussed in detail with the patient, her family, her nurse, and co-consultants. The patient will remain on the cardiac unit. Adilene Pond MD MTDD
[2016-11-24 07:41] LABS: HEMATOCRIT 30.9 % (36.0-48.0); MEAN CELL VOLUME 95.1 fl (80.0-105.0); MEAN CORPUSCULAR HEMOGLOBIN 31.4 pg (25.0-35.0); RED CELL DISTRIBUTION WIDTH 14.7 % (11.5-14.5); WHITE BLOOD COUNT 6.3 10^3/ul (4.5-11.0)
[2016-11-24] MEDS: Insulin Reg-LOW-Coverage SC SCH ×4 (07:51→22:03)
[2016-11-24 07:59] LABS: ALB/GLOB RATIO 1.1 (1.1-1.8); ALKALINE PHOSPHATASE 123 U/L (38-133); ALT/SGPT 448 U/L (7-56); AST/SGOT 384 U/L (15-39); BILIRUBIN,TOTAL 0.9 mg/dL (0.2-1.3); BLOOD UREA NITROGEN 7 mg/dL (7-21); CALCIUM 8.2 mg/dL (8.4-10.5); CARBON DIOXIDE 25 mmol/L (21-33); CHLORIDE 107 mmol/L (98-107); GFR AFRICAN-AMERICAN > 60; GLUCOSE,RANDOM 75 mg/dL (70-110); POTASSIUM 3.2 mmol/L (3.6-5.0); SODIUM 138 mmol/L (132-148); TOTAL PROTEIN 5.5 g/dL (5.8-8.3)
--- NOTE | 2016-11-24 08:35 | CP.PCM.CON ---
History of Present Illness - History of Present Illness History of Present Illness: this 68-year-old patient with a past medical history of hypothyroidism, diabetes mellitus and osteoporosis dyslipidemia history of chronic constipation linzess admitted with the acute onset of nausea vomiting and an episode of loose bowel movement. This happened at night. She has supper with pork and she had this a few hours later. She mentioned her had the same fold and no problem never had a similar episode before. She had a cholecystectomy about 8 months ago in [facility] [place]. She was due to have an endoscopy but that was subsequently canceled and she went for surgery. As per the patient she was doing well until this episode. History of episodes of constipation. she does not remember having had a colonoscopy in the ER she was found with an elevated LFTs.Feeling slightly better tolerating the diet now. OTHER PAST MEDICAL HISTORY as above SURGICAL HISTORY status post cholecystectomy SOCIAL HISTORY denies smoking or call FAMILY HISTORY noncontributory REVIEW OF THE SYSTEM other systems reviewed negative except above Past Patient History - Infectious Disease Hx of Infectious Diseases: None - Past Social History Smoking Status: Never Smoked - CARDIAC Hx Hypercholesterolemia: Yes - PULMONARY Hx Respiratory Disorders: No - NEUROLOGICAL Hx Dizziness: Yes (vertigo) - HEENT Hx HEENT Problems: No - RENAL Hx Chronic Kidney Disease: No - ENDOCRINE/METABOLIC Hx Endocrine Disorders: Yes Hx Diabetes Mellitus Type 2: Yes - HEMATOLOGICAL/ONCOLOGICAL Hx Blood Disorders: No - INTEGUMENTARY Hx Dermatological Problems: No - MUSCULOSKELETAL/RHEUMATOLOGICAL Hx Falls: No - GASTROINTESTINAL Hx Gall Bladder Disease: Yes (cholecystectomy) - GENITOURINARY/GYNECOLOGICAL Hx Genitourinary Disorders: No - PSYCHIATRIC Hx Substance Use: No - SURGICAL HISTORY Hx Cholecystectomy: Yes - ANESTHESIA Hx Anesthesia: Yes Hx Anesthesia Reactions: No Hx Malignant Hyperthermia: No Meds Allergies/Adverse Reactions: Allergies Allergy/AdvReac Type Severity Reaction Status Date / Time No Known Allergies Allergy Verified 11/23/16 07:02 - Medications Medications: Current Medications Acetaminophen (Tylenol 325mg Tab) 650 mg PO Q6H PRN PRN Reason: Fever >100.4 F Diphenhydramine HCl (Benadryl) 25 mg PO HS PRN PRN Reason: Insomnia Famotidine (Pepcid) 20 mg PO BID SHAUN Last Admin: 11/23/16 17:21 Dose: 20 mg Ceftriaxone Sodium (Rocephin 1 Gram Ivpb) 1 gm in 100 mls @ 100 mls/hr IVPB DAILY SHAUN PRN Reason: Protocol Metronidazole (Flagyl) 500 mg in 100 mls @ 100 mls/hr IVPB Q8 SHAUN PRN Reason: Protocol Stop: 11/25/16 22:00 Last Admin: 11/23/16 14:01 Dose: 100 mls/hr Insulin Human Regular (Humulin R Low) 0 units SC ACHS SHAUN PRN Reason: Protocol Last Admin: 11/23/16 18:03 Dose: Not Given Levothyroxine Sodium (Synthroid) 25 mcg PO 0600 [facility] Ondansetron HCl (Zofran Inj) 4 mg IVP Q6H PRN PRN Reason: Nausea/Vomiting Last Admin: 11/23/16 14:01 Dose: 4 mg Physical Exam - Head Exam Head Exam: ATRAUMATIC, NORMOCEPHALIC - Eye Exam Eye Exam: EOMI, PERRL - ENT Exam ENT Exam: Mucous Membranes Moist, Normal Oropharynx - Neck Exam Neck exam: Positive for: Full Rom. Negative for: Lymphadenopathy - Respiratory Exam Respiratory Exam: Clear to Auscultation Bilateral. absent: Rales, Rhonchi - Cardiovascular Exam Cardiovascular Exam: REGULAR RHYTHM, +S1, +S2. absent: JVD - GI/Abdominal Exam GI & Abdominal Exam: Soft. absent: Mass Additional comments: mild tenderness in the epigastric area on deep palpation Results - Vital Signs Recent Vital Signs: Last Vital Signs Temp 98.6 F 11/23/16 16:54 Pulse 96 H 11/23/16 16:54 Resp 18 11/23/16 16:54 BP 86/40 L 11/23/16 16:54 Pulse Ox 97 11/23/16 03:00 - Labs Result Diagrams: 11/24/16 07:30 11/24/16 07:30 Labs: Laboratory Results - last 24 hr 11/23/16 11/23/16 11/23/16 10:10 10:10 11:50 pO2 48 VBG pH 7.34 VBG pCO2 46.0 VBG HCO3 24.8 VBG Total CO2 26.2 VBG O2 Sat (Calc) 87.2 H VBG Base Excess -1.3 L VBG Potassium 3.5 L Sodium 141.0 140 Chloride 109.0 H 108 H Glucose 164 H Lactate 2.6 H FiO2 21.0 Potassium 3.2 L Carbon Dioxide 24 Anion Gap 11 BUN 10 Creatinine 0.5 Est GFR ( Amer) > 60 Est GFR (Non-Af Amer) > 60 POC Glucose (mg/dL) 177 H Random Glucose 100 Calcium 8.3 L Total Bilirubin 1.1 AST 1175 H ALT 730 H Alkaline Phosphatase 142 H Total Protein 5.9 Albumin 3.3 Globulin 2.6 Albumin/Globulin Ratio 1.3 Thyroxine (T4) Venous Blood Potassium 3.5 L 11/23/16 11/23/16 11/23/16 11:50 14:00 16:48 pO2 31 VBG pH 7.36 VBG pCO2 43.0 VBG HCO3 24.3 VBG Total CO2 25.6 VBG O2 Sat (Calc) 68.5 H VBG Base Excess -1.3 L VBG Potassium 3.3 L Sodium 138.0 Chloride 108.0 H Glucose 109 H Lactate 1.0 FiO2 21.0 Potassium Carbon Dioxide Anion Gap BUN Creatinine Est GFR ( Amer) Est GFR (Non-Af Amer) POC Glucose (mg/dL) 124 H Random Glucose Calcium Total Bilirubin AST ALT Alkaline Phosphatase Total Protein Albumin Globulin Albumin/Globulin Ratio Thyroxine (T4) 7.3 Venous Blood Potassium 3.3 L 11/23/16 21:07 pO2 VBG pH VBG pCO2 VBG HCO3 VBG Total CO2 VBG O2 Sat (Calc) VBG Base Excess VBG Potassium Sodium Chloride Glucose Lactate FiO2 Potassium Carbon Dioxide Anion Gap BUN Creatinine Est GFR ( Amer) Est GFR (Non-Af Amer) POC Glucose (mg/dL) 77 Random Glucose Calcium Total Bilirubin AST ALT Alkaline Phosphatase Total Protein Albumin Globulin Albumin/Globulin Ratio Thyroxine (T4) Venous Blood Potassium - Imaging and Cardiology CT scan - abdomen Status: Image reviewed by me Assessment & Plan - Assessment and Plan (Free Text) Assessment: this 66-year-old patient admitted with abdominal pain diarrhea vomiting patient does have an elevated lactate suggest of sepsis. Patient does have an elevated LFT status post cholecystectomy The differential diagnosis should include gastroenteritis, sepsis, urinary tract infection and pneumonia, cholangitis Comorbidities include diabetes mellitus I potential dyslipidemia chronic constipation,GERD Plan 1. Follow up cultures 2. Continue IV antibiotics 3. Ultrasound scan of the abdomen to evaluate the common bile duct 4. Follow up LFT 5. Would also consider MRCP after reviewing the sonogram if the duct is dilated or LFTs increasing Thank you vvery much for allowing us to participate in the care of the patient - Date & Time Date: 11/23/16 Time: 17:30
--- NOTE | 2016-11-24 09:07 | US ---
HISTORY: elevated LFT's, CBD COMPARISON: None. TECHNIQUE: Sonographic evaluation of the abdomen. FINDINGS: LIVER: Measures 13.1 cm. Normal echogenicity of the liver parenchyma. No mass. No intrahepatic bile duct dilatation. GALLBLADDER: Status post cholecystectomy COMMON BILE DUCT: Measures 5 mm. No stones. No dilatation. PANCREAS: Unremarkable as visualized. No mass. No ductal dilatation. RIGHT KIDNEY: Measures 11.4cm. Normal echogenicity. No calculus, mass, or hydronephrosis. LEFT KIDNEY: Measures 11.2cm. Normal echogenicity. No calculus or hydronephrosis. Mid left renal cortical cysts, 1.2 x 1.3 x 1.3 cm. No solid mass. SPLEEN: Normal in size and contour. No mass. AORTA: No aneurysmal dilatation. IVC: Unremarkable. OTHER FINDINGS: None. IMPRESSION: No evidence of urinary calculus or urinary obstruction. 1.3 cm mid left renal cortical cyst. Otherwise unremarkable. Status post cholecystectomy.
[2016-11-24] MEDS: cefTRIAXone 1 gm 1 GM/100 ML BAG IVPB SCH (09:17)
[2016-11-24] MEDS ORDERED: Potassium Chloride 20 mEq ER Tab PO ONE (13:44)
[2016-11-24] MEDS ORDERED: Potassium Chloride 40 mEq/30 ml LIQ UD PO ONE (20:00)
--- NOTE | 2016-11-24 21:46 | CP.PCM.PCO ---
Physician Communication Note - Physician Communication Note Physician Communication Note: Chart reviewed. Imaging reviewed. On Flagyl and Rocpehin. Consult to follow
--- NOTE | 2016-11-24 22:00 | CP.PCM.PN ---
Subjective - Date & Time of Evaluation Date of Evaluation: 11/24/16 Time of Evaluation: 09:30 - Subjective Subjective: this patient was seen and evaluated here. The feeling much better and tolerating the diet no diarrhea Objective - Vital Signs/Intake and Output Vital Signs (last 24 hours): Temp Pulse Resp BP Pulse Ox 99.1 F 99 H 20 94/61 L 95 11/24/16 18:09 11/24/16 18:00 11/24/16 17:47 11/24/16 17:47 11/24/16 06:00 - Medications Medications: Current Medications Acetaminophen (Tylenol 325mg Tab) 650 mg PO Q6H PRN PRN Reason: Fever >100.4 F Last Admin: 11/24/16 17:09 Dose: 650 mg Diphenhydramine HCl (Benadryl) 25 mg PO HS PRN PRN Reason: Insomnia Last Admin: 11/23/16 22:38 Dose: 25 mg Famotidine (Pepcid) 20 mg PO BID SHAUN Last Admin: 11/24/16 17:04 Dose: 20 mg Ceftriaxone Sodium (Rocephin 1 Gram Ivpb) 1 gm in 100 mls @ 100 mls/hr IVPB DAILY SHAUN PRN Reason: Protocol Last Admin: 11/24/16 09:17 Dose: 100 mls/hr Metronidazole (Flagyl) 500 mg in 100 mls @ 100 mls/hr IVPB Q8 SHAUN PRN Reason: Protocol Stop: 11/25/16 22:00 Last Admin: 11/24/16 14:15 Dose: 100 mls/hr Insulin Human Regular (Humulin R Low) 0 units SC ACHS SHAUN PRN Reason: Protocol Last Admin: 11/24/16 17:05 Dose: 1 units Levothyroxine Sodium (Synthroid) 25 mcg PO 0600 SHAUN Last Admin: 11/24/16 06:08 Dose: 25 mcg Ondansetron HCl (Zofran Inj) 4 mg IVP Q6H PRN PRN Reason: Nausea/Vomiting Last Admin: 11/23/16 14:01 Dose: 4 mg - Labs Labs: 11/24/16 07:30 11/24/16 14:50 PT 10.6 Seconds (9.9-11.8) 11/22/16 23:20 INR 0.98 (0.93-1.08) 11/22/16 23:20 APTT 23.8 Seconds (23.7-30.8) 11/22/16 23:20 - Head Exam Head Exam: ATRAUMATIC, NORMOCEPHALIC - Eye Exam Eye Exam: EOMI, PERRL. absent: Scleral icterus - ENT Exam ENT Exam: Mucous Membranes Moist, Normal Exam - Neck Exam Neck Exam: Full ROM, Normal Inspection. absent: Lymphadenopathy - Respiratory Exam Respiratory Exam: Clear to Ausculation Bilateral, NORMAL BREATHING PATTERN. absent: Rales, Wheezes - Cardiovascular Exam Cardiovascular Exam: REGULAR RHYTHM, +S1, +S2. absent: JVD - GI/Abdominal Exam GI & Abdominal Exam: Soft, Normal Bowel Sounds. absent: Tenderness, Mass - Extremities Exam Extremities Exam: Full ROM. absent: Calf Tenderness - Neurological Exam Neurological Exam: Alert, Awake, Oriented x3 - Psychiatric Exam Psychiatric exam: Normal Affect. absent: Agitated - Skin Skin Exam: Intact. absent: Abrasion Assessment and Plan - Assessment and Plan (Free Text) Assessment: this 66-year-old patient admitted with abdominal pain diarrhea vomiting patient does have an elevated lactate suggest of sepsis. Patient does have an elevated LFT status post cholecystectomy on examination abdomen soft. Tenderness now The differential diagnosis should include gastroenteritis, sepsis, urinary tract infection and pneumonia, cholangitis Comorbidities include diabetes mellitus I potential dyslipidemia chronic constipation,GERD LFTs showing improvement patient remins afebrile Initial blood culture negative Ultrasound scan of the abdomen reviewed CBD measured only 5 mm Plan 1. Follow LFTs just been improving 2. Continue the antibiotics 3. Follow-up the cultures 4. If the LFT shows an upward trend or not significantly improving with consider MRCP Thank you very much for allowing us to participate in the care of the patient
--- NOTE | 2016-11-25 01:12 | PN ---
DATE: 11/24/2016 SUBJECTIVE: This 66-year-old female remains hospitalized on the cardiac unit in normal sinus rhythm with no further reports of nausea, vomiting or diarrhea. Her case has been reviewed in detail with Cierra Clarke, the registered nurse. The patient is tolerating diet and medication. She denied fever, chills, chest pain or shortness of breath. PHYSICAL EXAMINATION VITAL SIGNS: Temperature is 99.6, respirations 18, pulse 86 and blood pressure 93/57 with pulse ox of 95% on room air. HEENT: Head is normocephalic, atraumatic. Eyes, no icterus. Ears, clear. Throat, noninjected. NECK: Supple. HEART: Regular S1 and S2. LUNGS: Clear. ABDOMEN: Soft. EXTREMITIES: No edema. SKIN: Without rash. NEUROLOGICAL: Intact. PSYCHOLOGICAL: Alert. VASCULAR: Legs are warm to touch. LABORATORY DATA: White count 6,300, hemoglobin 10.2, hematocrit 30.9, platelets 138,000. PT/INR is 0.98, PTT 23.8. Sodium 138, T3 of 0.2, chloride 107, bicarb 25, BUN 7, creatinine 0.5, random blood sugar 171, bilirubin 0.9, AST 384, ALT 448 and alk phos 123. Urine culture shows no growth. Blood culture x2 showed no growth at 24 hours. Abdominal ultrasound shows no evidence of urinary stone, urinary obstruction, there is a 1.3 cm mid left renal cortical cyst. The patient is status post cholecystectomy, the ultrasound is reported as otherwise unremarkable. IMPRESSION: This is a 66-year-old female admitted with gastroenteritis with nausea, vomiting, diarrhea, resultant hypokalemia, now with diabetes mellitus, elevated liver function testing of unclear etiology, newly noted anemia, rule out gastrointestinal bleeding with low-grade fevers, rule out sepsis, rule out hepatitis, also with chronic anxiety, insomnia, peptic ulcer disease, gastroesophageal reflux disease, hypothyroidism, and type 2 diabetes mellitus. PLAN: At present is to continue heart-healthy diabetic diet. She continues on Flagyl 500 mg IV q.8, Rocephin 1 g IV q.24, Synthroid 25 mcg p.o. daily, Zofran 4 mg IV q.6 hours p.r.n. nausea and vomiting. She has been ordered to receive potassium replacement therapy orally. She is ordered to receive Pepcid 20 mg p.o. b.i.d. She is on low-dose regular insulin protocol before meals and at bedtime. She has a hepatitis panel pending, is ordered to have a repeat comprehensive metabolic panel and hemoglobin, hematocrit in the a.m. I have requested that the nursing staff obtain a stool for occult blood. The patient is being followed by gastroenterology, Dr. Michelle Anguiano and is awaiting consultation by Dr. Guy Laughlin from infectious disease. All of this has been discussed in detail with the patient, nursing, co-consultants. She will continue on the cardiac unit at present time. Adilene Pond MD MTDD
[2016-11-25] MEDS: Levothyroxine 25 MCG TAB PO SCH (05:42)
[2016-11-25] MEDS: metroNIDAZOLE IV 500 mg/100 ml 500 MG/100 ML BAG IVPB SCH ×3 (05:42→22:28)
[2016-11-25 07:38] LABS: HEMATOCRIT 31.6 % (36.0-48.0)
[2016-11-25] MEDS: Insulin Reg-LOW-Coverage SC SCH ×4 (07:55→22:51)
[2016-11-25 08:12] LABS: GLUCOSE,RANDOM 106 mg/dL (70-110)
[2016-11-25 08:13] LABS: ALB/GLOB RATIO 1.1 (1.1-1.8); ALKALINE PHOSPHATASE 137 U/L (38-133); ALT/SGPT 318 U/L (7-56); AST/SGOT 163 U/L (15-39); BILIRUBIN,TOTAL 0.5 mg/dL (0.2-1.3); BLOOD UREA NITROGEN 6 mg/dL (7-21); CALCIUM 8.4 mg/dL (8.4-10.5); CARBON DIOXIDE 25 mmol/L (21-33); CHLORIDE 106 mmol/L (98-107); GFR AFRICAN-AMERICAN > 60; POTASSIUM 3.6 mmol/L (3.6-5.0); SODIUM 138 mmol/L (132-148); TOTAL PROTEIN 5.8 g/dL (5.8-8.3)
[2016-11-25] MEDS: cefTRIAXone 1 gm 1 GM/100 ML BAG IVPB SCH (11:23)
--- NOTE | 2016-11-25 11:33 | MRI ---
PROCEDURE: Magnetic Resonance Cholangiopancreatography HISTORY: Rule out CBD stone. Abnormal LFTs COMPARISON: None available. TECHNIQUE: Multiplanar, multisequence MR images of the abdomen were obtained, including heavily T2 weighted MRCP images of the biliary system. Rotating maximum intensity projection images of the biliary system were generated. FINDINGS: MRCP: The common duct is normal in caliber. There is focal dilatation of the ampulla which contains 5 mm stone. This is best visualized on coronal image 17 series 6 and axial image 17 series 7. The common duct measures 6 mm in diameter. There is no intrahepatic ductal dilatation LIVER: Unremarkable. GALLBLADDER: Unremarkable. SPLEEN: Unremarkable. PANCREAS: Unremarkable. ADRENALS: Unremarkable. KIDNEYS: Unremarkable. AORTA: No aneurysm. ASCITES: None. OTHER FINDINGS: None. IMPRESSION: Focal dilatation of the ampulla which contains 5 mm stone. There is no obstruction of the common duct which is normal in size. There is no intrahepatic ductal dilatation.
[2016-11-25 13:01] LABS: IRON 31 ug/dL (45-180)
[2016-11-25 17:35] LABS: FOLATE 14.6 ng/mL
--- NOTE | 2016-11-25 18:31 | CP.PCM.CON ---
History of Present Illness - History of Present Illness History of Present Illness: Infectious Disease Consultation: November 25, 2016 66 yo female with abdominal pain, nausea, vomiting, and diarrhea for 24 hours prior to admission to [facility]. The patient has an extensive medical history that includes hyperlipidemia, hypothyroidism, chronic vertigo, history of cholecystectomy. She described mid-epigastric pain that worsened as she ate. 3 episodes of vomiting prior to hospitalization. The patient has had an uneventful hospital course. She appears to be improving with fluids and IV antibiotics. CT scan and MRCP done. No blockages noted. Both studies are mostly unremarkable. PMHx: hyperlipidemia, hypothyroidism, chronic vertigo PSHx: cholecystectomy Allergies: NKDA Social Hx: No tobacco, EtOH, or illicit drug use Active Medications Acetaminophen (Tylenol 325mg Tab) 650 mg PO Q6H PRN PRN Reason: Fever >100.4 F Last Admin: 11/25/16 17:08 Dose: 650 mg Diphenhydramine HCl (Benadryl) 25 mg PO HS PRN PRN Reason: Insomnia Last Admin: 11/24/16 22:06 Dose: 25 mg Famotidine (Pepcid) 20 mg PO BID SHAUN Last Admin: 11/25/16 17:08 Dose: 20 mg Ceftriaxone Sodium (Rocephin 1 Gram Ivpb) 1 gm in 100 mls @ 100 mls/hr IVPB DAILY SHAUN PRN Reason: Protocol Last Admin: 11/25/16 11:23 Dose: 100 mls/hr Metronidazole (Flagyl) 500 mg in 100 mls @ 100 mls/hr IVPB Q8 SHAUN PRN Reason: Protocol Stop: 11/25/16 22:00 Last Admin: 11/25/16 13:45 Dose: 100 mls/hr Insulin Human Regular (Humulin R Low) 0 units SC ACHS SHAUN PRN Reason: Protocol Last Admin: 11/25/16 16:55 Dose: Not Given Levothyroxine Sodium (Synthroid) 25 mcg PO 0600 [facility] Last Admin: 11/25/16 05:42 Dose: 25 mcg Ondansetron HCl (Zofran Inj) 4 mg IVP Q6H PRN PRN Reason: Nausea/Vomiting Last Admin: 11/25/16 16:19 Dose: 4 mg Zolpidem Tartrate (Ambien) 5 mg PO HS PRN; Protocol PRN Reason: Insomnia Family Hx: none given ROS: nausea, vomiting, diarrhea, abdominal pain. No fevers, chills, melena, hematuria, hematemesis, hematochezia, chest pain, cough, SOB. Past Patient History - Infectious Disease Hx of Infectious Diseases: None - Past Social History Smoking Status: Never Smoked - CARDIAC Hx Hypercholesterolemia: Yes - PULMONARY Hx Respiratory Disorders: No - NEUROLOGICAL Hx Dizziness: Yes (vertigo) - HEENT Hx HEENT Problems: No - RENAL Hx Chronic Kidney Disease: No - ENDOCRINE/METABOLIC Hx Diabetes Mellitus Type 2: Yes - HEMATOLOGICAL/ONCOLOGICAL Hx Blood Disorders: No - INTEGUMENTARY Hx Dermatological Problems: No - MUSCULOSKELETAL/RHEUMATOLOGICAL Hx Falls: No - GASTROINTESTINAL Hx Gall Bladder Disease: Yes (cholecystectomy) - GENITOURINARY/GYNECOLOGICAL Hx Genitourinary Disorders: No - PSYCHIATRIC Hx Substance Use: No - SURGICAL HISTORY Hx Cholecystectomy: Yes - ANESTHESIA Hx Anesthesia: Yes Hx Anesthesia Reactions: No Hx Malignant Hyperthermia: No Meds Allergies/Adverse Reactions: Allergies Allergy/AdvReac Type Severity Reaction Status Date / Time No Known Allergies Allergy Verified 11/23/16 07:02 - Medications Medications: Current Medications Acetaminophen (Tylenol 325mg Tab) 650 mg PO Q6H PRN PRN Reason: Fever >100.4 F Last Admin: 11/25/16 17:08 Dose: 650 mg Diphenhydramine HCl (Benadryl) 25 mg PO HS PRN PRN Reason: Insomnia Last Admin: 11/24/16 22:06 Dose: 25 mg Famotidine (Pepcid) 20 mg PO BID [facility] Last Admin: 11/25/16 17:08 Dose: 20 mg Ceftriaxone Sodium (Rocephin 1 Gram Ivpb) 1 gm in 100 mls @ 100 mls/hr IVPB DAILY [facility] PRN Reason: Protocol Last Admin: 11/25/16 11:23 Dose: 100 mls/hr Metronidazole (Flagyl) 500 mg in 100 mls @ 100 mls/hr IVPB Q8 SHAUN PRN Reason: Protocol Stop: 11/25/16 22:00 Last Admin: 11/25/16 13:45 Dose: 100 mls/hr Insulin Human Regular (Humulin R Low) 0 units SC ACHS SHAUN PRN Reason: Protocol Last Admin: 11/25/16 16:55 Dose: Not Given Levothyroxine Sodium (Synthroid) 25 mcg PO 0600 [facility] Last Admin: 11/25/16 05:42 Dose: 25 mcg Ondansetron HCl (Zofran Inj) 4 mg IVP Q6H PRN PRN Reason: Nausea/Vomiting Last Admin: 11/25/16 16:19 Dose: 4 mg Zolpidem Tartrate (Ambien) 5 mg PO HS PRN; Protocol PRN Reason: Insomnia Physical Exam - Constitutional Appears: Non-toxic, No Acute Distress - Head Exam Head Exam: ATRAUMATIC, NORMOCEPHALIC - Eye Exam Eye Exam: EOMI, PERRL Pupil Exam: NORMAL ACCOMODATION, PERRL - ENT Exam ENT Exam: Mucous Membranes Moist, Normal External Ear Exam, TM's Normal Bilaterally - Neck Exam Neck exam: Positive for: Full Rom, Normal Inspection - Respiratory Exam Respiratory Exam: Clear to Auscultation Bilateral, NORMAL BREATHING PATTERN. absent: Rales, Rhonchi, Wheezes - Cardiovascular Exam Cardiovascular Exam: REGULAR RHYTHM, RRR, +S1, +S2 - GI/Abdominal Exam GI & Abdominal Exam: Normal Bowel Sounds, Soft. absent: Distended, Tenderness - Extremities Exam Extremities exam: Positive for: full ROM, normal inspection - Neurological Exam Neurological exam: Alert, CN II-XII Intact, Oriented x3 - Psychiatric Exam Psychiatric exam: Normal Affect, Normal Mood - Skin Skin Exam: Intact, Normal Color Results - Vital Signs Recent Vital Signs: Last Vital Signs Temp 101.5 F H 11/25/16 17:08 Pulse 88 11/25/16 17:06 Resp 20 11/25/16 17:06 BP 94/54 L 11/25/16 17:06 Pulse Ox 99 11/25/16 06:00 - Labs Result Diagrams: 11/25/16 07:10 11/25/16 07:10 Labs: Laboratory Results - last 24 hr 11/23/16 11/24/16 11/25/16 11:50 21:58 07:10 Hgb Hct Sodium 138 Potassium 3.6 Chloride 106 Carbon Dioxide 25 Anion Gap 11 BUN 6 L Creatinine 0.5 Est GFR ( Amer) > 60 Est GFR (Non-Af Amer) > 60 POC Glucose (mg/dL) 176 H Random Glucose 106 Calcium 8.4 Magnesium Iron TIBC % Saturation Ferritin Total Bilirubin 0.5 AST 163 H ALT 318 H Alkaline Phosphatase 137 H Total Protein 5.8 Albumin 3.1 Globulin 2.7 Albumin/Globulin Ratio 1.1 Hepatitis A IgM Ab Negative Hep Bs Antigen Negative Hep B Core IgM Ab Negative Hepatitis C Antibody Negative 11/25/16 11/25/16 11/25/16 07:10 07:10 07:37 Hgb 10.2 L Hct 31.6 L Sodium Potassium Chloride Carbon Dioxide Anion Gap BUN Creatinine Est GFR ( Amer) Est GFR (Non-Af Amer) POC Glucose (mg/dL) 111 H Random Glucose Calcium Magnesium 2.0 Iron TIBC % Saturation Ferritin Total Bilirubin AST ALT Alkaline Phosphatase Total Protein Albumin Globulin Albumin/Globulin Ratio Hepatitis A IgM Ab Hep Bs Antigen Hep B Core IgM Ab Hepatitis C Antibody 11/25/16 11/25/16 11/25/16 11:33 12:43 12:43 Hgb Hct Sodium Potassium Chloride Carbon Dioxide Anion Gap BUN Creatinine Est GFR ( Amer) Est GFR (Non-Af Amer) POC Glucose (mg/dL) 142 H Random Glucose Calcium Magnesium Iron 31 L TIBC 292 % Saturation 11 L Ferritin 121.0 Total Bilirubin AST ALT Alkaline Phosphatase Total Protein Albumin Globulin Albumin/Globulin Ratio Hepatitis A IgM Ab Hep Bs Antigen Hep B Core IgM Ab Hepatitis C Antibody Assessment & Plan - Assessment and Plan (Free Text) Assessment: 66 yo female with abdominal pain, nausea, vomiting, diarrhea. Cholecystectomy was performed over 8 months ago. Fever up to 101.5 F. MCRP is showing 5 mm stone in ampulla. No dilitation of the common bile duct. Clinically the patient is getting better. Spoke with Dr. Anguiano, he is considering if an ERCP will be necessary to remove the stone (He states she will likely need the ERCP and that he will schedule for tomorrow). AST has improved. No leukocytosis. On Rocephin and Flagyl currently. Afebrile now. Will continue on Rocephin and Flagyl. Most likely Dr. Anguiano is scheduling patient for ERCP tomorrow. Clinically improving. 5mm stone in ampulla on MRCP scan. Thank you for allowing me to participate in the care of the patient, we will follow with you.
--- NOTE | 2016-11-25 19:19 | PN ---
DATE: 11/25/2016 SUBJECTIVE: This 66-year-old male was examined at her bedside in the presence of her nurse, Carmina Miller, registered nurse. The patient at present is tolerating a soft bland diet. She had low grade temperatures yesterday. Microbiology reports show blood culture and urine culture with no growth to date and infectious disease consultation with Dr. Laughlin remains pending. The patient is tolerating parenteral IV Rocephin and Flagyl and she denies any further nausea or vomiting. She denies diarrhea, fever or chills and has had no chest pain or shortness of breath. Her manager cardiac shows a normal sinus rhythm. PHYSICAL EXAMINATION: VITAL SIGNS: Her temperature was 98.9. Her respirations are 18, pulse 80, and blood pressure 111/56 with a pulse ox of 99% on room air. HEENT: Head is normocephalic and atraumatic. Eyes: No icterus. Ears: Clear. Throat: Noninjected. NECK: Supple. HEART: Regular. S1 and S2. No pathological rubs, murmurs, or gallops. LUNGS: Clear to auscultation. ABDOMEN: Soft, nontender. There was no palpable organomegaly. There was no rebound, no guarding, no tenderness. EXTREMITIES: Show no clubbing, no cyanosis, no edema. SKIN: Without rash. NEUROLOGICAL: Intact. PSYCHOLOGICAL: She is alert and oriented x3. VASCULAR: Legs are warm to touch. RECTAL EXAM: Showed no masses. Stool was brown and guaiac negative done in presence of the nurse at the bedside. LABORATORY DATA: Today's hemoglobin 10.2, hematocrit 31.6. PT/INR is 0.98, PTT 23.8. Sodium 138, T3 of 0.6, chloride 106, bicarb 25, BUN 6, creatinine 0.5, random blood sugar 142, magnesium normal at 2.0, bilirubin 0.5, AST 163, ALT 318 and alk phos 137. Hepatitis A, B, C panel negative. Microbiology: Urine culture no growth. Blood culture no growth in 48 hours. IMPRESSION: A 66-year-old female who admitted with gastroenteritis, nausea, vomiting, diarrhea with electrolyte imbalance, now resolved with comorbidities of elevated liver function testing, rule out common bile duct infection, also with comorbidities of type 2 diabetes mellitus, peptic ulcer disease with gastroesophageal reflux disease, hypothyroidism, anxiety neurosis and insomnia, now with anemia in the setting of guaiac negative brown stool, rule out dilutional anemia. PLAN: At present is to continue heart-healthy diabetic soft bland diet. She continues on Synthroid 25 mcg p.o. daily, Rocephin 1 g q. 24, Flagyl 500 mg IV q. 8, Pepcid 20 mg p.o. b.i.d., insulin regular, low-dose insulin protocol before meals and at bedtime. She is ordered to have physical therapy for ambulation safety. She will have additional workup and testing as per infectious disease and GI consultants. I have ordered a repeat hemoglobin, hematocrit and comprehensive metabolic panel for the a.m. and we will order iron, TIBC, transferrin sat, B12, and folic acid levels for completeness sake. All of the above was discussed in detail with the patient at her bedside in the presence of her nurse, Carmina Miller. All questions were answered and the patient will remain on the cardiac unit. Adilene Pond MD MTDD
--- NOTE | 2016-11-26 00:17 | CP.PCM.PN ---
Subjective - Date & Time of Evaluation Date of Evaluation: 11/25/16 Time of Evaluation: 09:00 - Subjective Subjective: spiked a temperature today. She did not feel that well today Objective - Vital Signs/Intake and Output Vital Signs (last 24 hours): Temp Pulse Resp BP Pulse Ox 100.2 F H 67 20 94/54 L 99 11/25/16 18:08 11/25/16 22:00 11/25/16 17:06 11/25/16 17:06 11/25/16 06:00 Intake and Output: 11/25/16 11/26/16 18:59 06:59 Intake Total 960 Output Total 1 Balance 959 - Medications Medications: Current Medications Acetaminophen (Tylenol 325mg Tab) 650 mg PO Q6H PRN PRN Reason: Fever >100.4 F Last Admin: 11/25/16 17:08 Dose: 650 mg Diphenhydramine HCl (Benadryl) 25 mg PO HS PRN PRN Reason: Insomnia Last Admin: 11/24/16 22:06 Dose: 25 mg Famotidine (Pepcid) 20 mg PO BID SHAUN Last Admin: 11/25/16 17:08 Dose: 20 mg Ceftriaxone Sodium (Rocephin 1 Gram Ivpb) 1 gm in 100 mls @ 100 mls/hr IVPB DAILY SHAUN PRN Reason: Protocol Last Admin: 11/25/16 11:23 Dose: 100 mls/hr Insulin Human Regular (Humulin R Low) 0 units SC ACHS SHAUN PRN Reason: Protocol Last Admin: 11/25/16 22:51 Dose: Not Given Levothyroxine Sodium (Synthroid) 25 mcg PO 0600 SHAUN Last Admin: 11/25/16 05:42 Dose: 25 mcg Ondansetron HCl (Zofran Inj) 4 mg IVP Q6H PRN PRN Reason: Nausea/Vomiting Last Admin: 11/25/16 16:19 Dose: 4 mg Zolpidem Tartrate (Ambien) 5 mg PO HS PRN; Protocol PRN Reason: Insomnia Last Admin: 11/25/16 22:28 Dose: 5 mg - Labs Labs: 11/25/16 07:10 11/25/16 07:10 PT 10.6 Seconds (9.9-11.8) 11/22/16 23:20 INR 0.98 (0.93-1.08) 11/22/16 23:20 APTT 23.8 Seconds (23.7-30.8) 11/22/16 23:20 - Head Exam Head Exam: ATRAUMATIC, NORMOCEPHALIC - Eye Exam Eye Exam: EOMI, PERRL - ENT Exam ENT Exam: Mucous Membranes Moist, Normal Oropharynx - Neck Exam Neck Exam: Full ROM. absent: Lymphadenopathy - Respiratory Exam Respiratory Exam: Clear to Ausculation Bilateral. absent: Rales, Rhonchi - Cardiovascular Exam Cardiovascular Exam: REGULAR RHYTHM, +S1, +S2. absent: JVD - GI/Abdominal Exam GI & Abdominal Exam: Soft. absent: Tenderness, Mass - Rectal Exam Rectal Exam: Deferred - Extremities Exam Extremities Exam: Full ROM. absent: Calf Tenderness, Pedal Edema - Neurological Exam Neurological Exam: Alert, Awake, Oriented x3 - Psychiatric Exam Psychiatric exam: Normal Affect, Normal Mood - Skin Skin Exam: Dry, Intact Assessment and Plan - Assessment and Plan (Free Text) Assessment: this 66-year-old patient admitted with sepsis , elevated LFTs, recent MRCP shows a distal CBD stone transaminases improving howeverALK remines elevated Discussed with the patient to with the nurse interpretation. The patient fully understood Patient be scheduled for EUSaand if it shows stones will proceed with ERCP Patient is agreeable for the procedure Anemia and drop in blood count patient also has a decrease in albumin suggesting a possible hydration will be the etiology for the drop in blood count will continue to closely follow the hemoglobin and hematocrit Patient has history of chronic constipation would benefit from elective EGD colonoscopy.
[2016-11-26] MEDS: Levothyroxine 25 MCG TAB PO SCH (05:40)
[2016-11-26 07:12] LABS: HEMATOCRIT 34.2 % (36.0-48.0)
[2016-11-26 07:27] LABS: ALB/GLOB RATIO 1.2 (1.1-1.8); ALKALINE PHOSPHATASE 148 U/L (38-133); ALT/SGPT 251 U/L (7-56); AST/SGOT 98 U/L (15-39); BILIRUBIN,TOTAL 0.5 mg/dL (0.2-1.3); BLOOD UREA NITROGEN 8 mg/dL (7-21); CARBON DIOXIDE 28 mmol/L (21-33); CHLORIDE 106 mmol/L (98-107); GFR AFRICAN-AMERICAN > 60; GLUCOSE,RANDOM 115 mg/dL (70-110); POTASSIUM 4.1 mmol/L (3.6-5.0); SODIUM 141 mmol/L (132-148); TOTAL PROTEIN 6.4 g/dL (5.8-8.3)
[2016-11-26 08:48] LABS: BASO # 0.03 K/mm3 (0.0-2.0); BASO % 0.9 % (0.0-3.0); EOS # 0.1 (0.0-0.7); EOS % 2.3 % (1.5-5.0); GRAN # 1.95 (1.4-6.5); GRAN % 56.2 % (50.0-68.0); HEMATOCRIT 38.3 % (36.0-48.0); LYMPH % 29.4 % (22.0-35.0); MEAN CELL VOLUME 93.9 fl (80.0-105.0); MEAN CORPUSCULAR HEMOGLOBIN 31.4 pg (25.0-35.0); MEAN CORPUSCULAR HGB CONC 33.4 g/dl (31.0-37.0); MEAN PLATELET VOLUME 9.8 fl (7.0-11.0); MONO # 0.4 (0.1-0.6); MONO % 11.2 % (1.0-6.0); RED CELL DISTRIBUTION WIDTH 14.5 % (11.5-14.5); WHITE BLOOD COUNT 3.5 10^3/ul (4.5-11.0)
[2016-11-26 08:58] LABS: ALB/GLOB RATIO 1.3 (1.1-1.8); ALKALINE PHOSPHATASE 185 U/L (38-133); ALT/SGPT 291 U/L (7-56); AST/SGOT 112 U/L (15-39); BILIRUBIN,TOTAL 0.6 mg/dL (0.2-1.3); BLOOD UREA NITROGEN 8 mg/dL (7-21); CALCIUM 9.5 mg/dL (8.4-10.5); CARBON DIOXIDE 27 mmol/L (21-33); CHLORIDE 104 mmol/L (98-107); GFR AFRICAN-AMERICAN > 60; GLUCOSE,RANDOM 134 mg/dL (70-110); MAGNESIUM 2.1 mg/dL (1.7-2.2); POTASSIUM 4.3 mmol/L (3.6-5.0); SODIUM 142 mmol/L (132-148); TOTAL PROTEIN 7.6 g/dL (5.8-8.3)
[2016-11-26 08:59] LABS: INR 0.94 (0.93-1.08)
[2016-11-26] MEDS: metroNIDAZOLE IV 500 mg/100 ml 500 MG/100 ML BAG IVPB SCH ×3 (09:31→21:53)
[2016-11-26] MEDS: Insulin Reg-LOW-Coverage SC SCH ×4 (10:06→21:52)
[2016-11-26] MEDS: cefTRIAXone 1 gm 1 GM/100 ML BAG IVPB SCH (12:07)
--- NOTE | 2016-11-26 12:25 | PN ---
DATE: 11/26/2016 SUBJECTIVE: This 66-year-old female was examined at her bedside in the presence of her nurse and also her . The patient is being scheduled for ERCP this afternoon with Dr. Michelle Anguiano from because of a 5 mm retained stone in her common bile duct noted on her MRCP. The patient was admitted with fever, chills, elevated liver function testing, and at present the patient is aware and is in agreement with the above. The patient was examined at the bedside yesterday in the presence of her nurse, had guaiac positive stools, has had persistent transaminitis with today's AST 112, ALT 291, and alkaline phosphatase 185. This is actually higher than yesterday's values. The patient denies fevers, chills, shortness of breath, and is tolerating diet and medication including parenteral antibiotics. PHYSICAL EXAMINATION: VITAL SIGNS: The front desk monitor shows a normal sinus rhythm. Temperature 98.5, respirations 20, pulse 77, and blood pressure 115/60 with a pulse ox of 95% on room air. HEENT: Her head is normocephalic, atraumatic. Eyes show no icterus. Ears clear. Throat is noninjected. NECK: Supple. HEART: Regular S1 and S2. No pathological rubs, murmurs, or gallops. LUNGS: Clear to auscultation. ABDOMEN: Soft and nontender. No palpable organomegaly. No rebound. No guarding. No tenderness. EXTREMITIES: No clubbing, no cyanosis, no edema. SKIN: Without rash. NEUROLOGIC: Intact. PSYCHOLOGICAL: Alert and oriented x3. VASCULAR: Legs are warm to touch. LABORATORY DATA: Shows sodium 142, potassium 4.3, chloride 104, bicarbonate 27, BUN 8, creatinine 0.5, and random blood sugar is 134. Magnesium level is normal at 2.1. Bilirubin level is normal at 0.6. AST 112, ALT 291, and alkaline phosphatase elevated at 185. Of note, her iron level was 31, TIBC 292, and percent saturation of 11 with a ferritin level of 121. B12 level of 315 and folate level of 14.6. T4 level was normal at 7.3. IMPRESSION AND PLAN: This is a 66-year-old female with gastroenteritis, biliary tract sepsis secondary to a retained gallstone in her common bile duct with comorbidities of type 2 diabetes mellitus, history of hyperlipidemia, hypothyroidism, and recent cholecystectomy within the past year. I have had a lengthy bedside discussion with the patient in the presence of her and her nurse. She has been advised that she will need complete GI workup including endoscopy and colonoscopy in her future for completeness sake. The is aware and are in agreement with the above as well. The patient is being ready for endoscopic retrograde cholangiopancreatography later this afternoon. She remains nothing by mouth and will continue on Flagyl 500 mg IV q.8 hours, Rocephin 1 g IV q.24 hours, insulin coverage before meals and bedtime, Pepcid 20 mg p.o. b.i.d., and Synthroid 25 mcg p.o. daily. The patient is being monitored on a daily basis by Gastroenterology and Infectious Disease consultants and course of antibiotic duration will be determined based on her clinical response and their advice. All of this was discussed in detail with the patient, , and nurse at the bedside. All questions were answered. She will continue on the cardiac unit at present time. Adilene Pond MD CLAUDIA
[2016-11-26] MEDS ORDERED: Iohexol 240 (50 ml) ONE (13:54)
[2016-11-26] MEDS ORDERED: Indomethacin 50 MG Suppository PR ONE (13:56)
[2016-11-26] MEDS ORDERED: Propofol 10 mg/ml Inj (20 ML) ONE (14:19)
[2016-11-26] MEDS ORDERED: Lidocaine 1% Inj (20ml) ONE (14:20)
[2016-11-26] MEDS ORDERED: Succinylcholine 200 mg/10 ml Inj IV ONE (14:20)
[2016-11-26] MEDS ORDERED: Midazolam 2 MG/2 ML VIAL ONE (14:20)
[2016-11-26] MEDS ORDERED: Glucagon Recombinant 1 mg Inj ONE (15:28)
--- NOTE | 2016-11-26 17:27 | PN ---
DATE: 11/26/2016 SUBJECTIVE: This patient was seen and evaluated earlier and discussed with patient's and also the procedure was explained in detail. The patient is scheduled for an ERCP, a industrial psychology professor was used for interpretation. The patient did spike a temperature of 101.5 yesterday. Feeling better today. PHYSICAL EXAMINATION VITAL SIGNS: On examination, temperature is 98.4, pulse 81, blood pressure 128/64, respirations 18. HEENT: Atraumatic. Anicteric. NECK: Supple. HEART: S1 and S2. LUNGS: Bilateral air entry present. ABDOMEN: Soft, there is mild tenderness on deep palpation in the epigastric area, otherwise unremarkable. EXTREMITIES: No edema. No cyanosis. No clubbing. NEUROLOGIC: Alert and oriented. Moves all the extremities. LABORATORY DATA: WBC is 3.5, hemoglobin 12.8, hematocrit 38.3, platelets 177. AST still remains elevated. Total bilirubin is 0.6; however, her alkaline phosphatase has gone up to 185. ALT 291. AST is 112. IMPRESSION AND PLAN: This 66-year-old patient is admitted with abdominal pain, nausea, vomiting. The patient did have an elevated liver enzymes. Patient had a status post cholecystectomy before. MRCP is suggestive of distal common bile duct stone. Patient still spiking fever. The T-max yesterday was 101. Patient would benefit from EUS and followed by ERCP to further evaluate. Patient's hemoglobin has improved to 12.8 now. Most likely the drop in hemoglobin may be due to hydration. She must need an elective GI evaluation. Risks, benefits and alternatives of the ERCP explained. Risks including bleeding, perforation explained. Risk of pancreatitis explained. Patient fully understood. The patient is Jehovah Witness and did explain to her the procedure at length. I also discussed with Dr. Pond. Thank you very much for allowing us to participate in the care of the patient. Michelle Anguiano MD
--- NOTE | 2016-11-26 18:31 | CP.PCM.PN ---
Subjective - Date & Time of Evaluation Date of Evaluation: 11/26/16 Time of Evaluation: 18:00 - Subjective Subjective: Infectious Disease Follow Up: November 26, 2016 66 yo female with abdominal pain, nausea, vomiting, and diarrhea for 24 hours prior to admission to [facility]. The patient has an extensive medical history that includes hyperlipidemia, hypothyroidism, chronic vertigo, history of cholecystectomy. She described mid-epigastric pain that worsened as she ate. 3 episodes of vomiting prior to hospitalization. The patient has had an uneventful hospital course. She appears to be improving with fluids and IV antibiotics. CT scan and MRCP done. No blockages noted. Both studies are mostly unremarkable but shows a 5mm stone in the CBD. Patient taken to ERCP by Dr. Anguiano today. Overall the patient states that she feels better. Afebrile today. Objective - Vital Signs/Intake and Output Vital Signs (last 24 hours): Temp Pulse Resp BP Pulse Ox 98.7 F 83 19 107/61 98 11/26/16 18:11 11/26/16 18:11 11/26/16 18:11 11/26/16 18:11 11/26/16 18:11 Intake and Output: 11/26/16 11/26/16 06:59 18:59 Intake Total 580 100 Output Total 5 Balance 575 100 - Medications Medications: Current Medications Acetaminophen (Tylenol 325mg Tab) 650 mg PO Q6H PRN PRN Reason: Fever >100.4 F Last Admin: 11/25/16 17:08 Dose: 650 mg Famotidine (Pepcid) 20 mg PO BID [facility] Last Admin: 11/26/16 10:06 Dose: Not Given Ceftriaxone Sodium (Rocephin 1 Gram Ivpb) 1 gm in 100 mls @ 100 mls/hr IVPB DAILY SHAUN PRN Reason: Protocol Last Admin: 11/26/16 12:07 Dose: 100 mls/hr Metronidazole (Flagyl) 500 mg in 100 mls @ 100 mls/hr IVPB Q8 SHAUN PRN Reason: Protocol Last Admin: 11/26/16 17:03 Dose: Not Given Sodium Chloride (Sodium Chloride 0.9%) 1,000 mls @ 100 mls/hr IV .Q10H [facility] Insulin Human Regular (Humulin R Low) 0 units SC ACHS SHAUN PRN Reason: Protocol Last Admin: 08/22/17 12:44 Dose: Not Given Levothyroxine Sodium (Synthroid) 25 mcg PO 0600 SHAUN Last Admin: 11/26/16 05:40 Dose: 25 mcg Metoclopramide HCl (Reglan) 10 mg IVP ONCE PRN PRN Reason: Nausea/Vomiting Stop: 11/26/16 18:27 Ondansetron HCl (Zofran Inj) 4 mg IVP Q6H PRN PRN Reason: Nausea/Vomiting Last Admin: 11/25/16 16:19 Dose: 4 mg Zolpidem Tartrate (Ambien) 5 mg PO HS PRN; Protocol PRN Reason: Insomnia Last Admin: 11/25/16 22:28 Dose: 5 mg - Labs Labs: 11/26/16 08:30 11/26/16 08:30 PT 10.1 Seconds (9.9-11.8) 11/26/16 08:30 INR 0.94 (0.93-1.08) 11/26/16 08:30 APTT 28.0 Seconds (23.7-30.8) 11/26/16 08:30 - Constitutional Appears: Non-toxic, No Acute Distress, Chronically Ill - Head Exam Head Exam: ATRAUMATIC, NORMOCEPHALIC - Eye Exam Eye Exam: EOMI, PERRL Pupil Exam: NORMAL ACCOMODATION, PERRL - ENT Exam ENT Exam: Mucous Membranes Moist, Normal External Ear Exam, TM's Normal Bilaterally - Neck Exam Neck Exam: Full ROM, Normal Inspection - Respiratory Exam Respiratory Exam: Clear to Ausculation Bilateral, NORMAL BREATHING PATTERN. absent: Rales, Rhonchi, Wheezes - Cardiovascular Exam Cardiovascular Exam: REGULAR RHYTHM, RRR, +S1, +S2 - GI/Abdominal Exam GI & Abdominal Exam: Soft, Normal Bowel Sounds. absent: Distended, Tenderness - Extremities Exam Extremities Exam: Full ROM, Normal Inspection - Neurological Exam Neurological Exam: Alert, Awake, CN II-XII Intact, Oriented x3 - Psychiatric Exam Psychiatric exam: Normal Affect, Normal Mood - Skin Skin Exam: Intact, Normal Color Assessment and Plan - Assessment and Plan (Free Text) Assessment: 66 yo female with abdominal pain, nausea, vomiting, diarrhea. Cholecystectomy was performed over 8 months ago. Fever up to 101.5 F. MCRP is showing 5 mm stone in ampulla. No dilitation of the common bile duct. Clinically the patient is getting better. Spoke with Dr. Anguiano, he has performed ERCP today. AST has improved. No leukocytosis. On Rocephin and Flagyl currently. Afebrile now. Will continue on Rocephin and Flagyl. Most likely Dr. Anguiano performed ERCP today. Awaiting report. Clinically improving. 5mm stone in ampulla on MRCP scan. Thank you for allowing me to participate in the care of the patient, we will follow with you.
[2016-11-26] MEDS: Sodium Chloride 0.9% 1,000 ML IV SCH (18:57)
[2016-11-27] MEDS: Sodium Chloride 0.9% 1,000 ML IV SCH ×4 (04:00→20:09)
[2016-11-27] MEDS: metroNIDAZOLE IV 500 mg/100 ml 500 MG/100 ML BAG IVPB SCH ×2 (05:04→14:48)
[2016-11-27] MEDS: Levothyroxine 25 MCG TAB PO SCH (05:04)
[2016-11-27 05:51] VITALS: RESP 18; O2SAT 100
[2016-11-27 07:13] LABS: ALB/GLOB RATIO 1.3 (1.1-1.8); ALKALINE PHOSPHATASE 130 U/L (38-133); ALT/SGPT 193 U/L (7-56); AST/SGOT 114 U/L (15-39); BILIRUBIN,TOTAL 0.4 mg/dL (0.2-1.3); BLOOD UREA NITROGEN 9 mg/dL (7-21); CALCIUM 8.4 mg/dL (8.4-10.5); CARBON DIOXIDE 29 mmol/L (21-33); CHLORIDE 107 mmol/L (98-107); GFR AFRICAN-AMERICAN > 60; GLUCOSE,RANDOM 94 mg/dL (70-110); POTASSIUM 3.6 mmol/L (3.6-5.0); SODIUM 141 mmol/L (132-148); TOTAL PROTEIN 5.8 g/dL (5.8-8.3)
[2016-11-27] MEDS: Insulin Reg-LOW-Coverage SC SCH ×3 (07:30→17:02)
[2016-11-27] MEDS: cefTRIAXone 1 gm 1 GM/100 ML BAG IVPB SCH (09:34)
--- NOTE | 2016-11-27 14:37 | CP.PCM.PN ---
Subjective - Date & Time of Evaluation Date of Evaluation: 11/27/16 Time of Evaluation: 13:00 - Subjective Subjective: Infectious Disease Follow Up: November 27, 2016 66 yo female with abdominal pain, nausea, vomiting, and diarrhea for 24 hours prior to admission to [facility]. The patient has an extensive medical history that includes hyperlipidemia, hypothyroidism, chronic vertigo, history of cholecystectomy. She described mid-epigastric pain that worsened as she ate. 3 episodes of vomiting prior to hospitalization. The patient has had an uneventful hospital course. She appears to be improving with fluids and IV antibiotics. CT scan and MRCP done. No blockages noted. Both studies are mostly unremarkable but shows a 5mm stone in the CBD. Patient taken to ERCP by Dr. Anguiano yesterday. He performed stone removal ( one 4 mm stone found) and sphincterotomy. Overall the patient states that she feels better. Afebrile today. Objective - Vital Signs/Intake and Output Vital Signs (last 24 hours): Temp Pulse Resp BP Pulse Ox 97.5 F L 64 18 115/58 L 100 11/27/16 11:39 11/27/16 11:39 11/27/16 11:39 11/27/16 11:39 11/27/16 05:51 Intake and Output: 11/27/16 11/27/16 06:59 18:59 Intake Total 1560 Balance 1560 - Medications Medications: Current Medications Acetaminophen (Tylenol 325mg Tab) 650 mg PO Q6H PRN PRN Reason: Fever >100.4 F Last Admin: 11/26/16 20:38 Dose: 650 mg Famotidine (Pepcid) 20 mg PO BID [facility] Last Admin: 11/27/16 11:22 Dose: 20 mg Ceftriaxone Sodium (Rocephin 1 Gram Ivpb) 1 gm in 100 mls @ 100 mls/hr IVPB DAILY SHAUN PRN Reason: Protocol Last Admin: 11/27/16 09:34 Dose: 100 mls/hr Metronidazole (Flagyl) 500 mg in 100 mls @ 100 mls/hr IVPB Q8 SHAUN PRN Reason: Protocol Last Admin: 11/27/16 05:04 Dose: 100 mls/hr Sodium Chloride (Sodium Chloride 0.9%) 1,000 mls @ 100 mls/hr IV .Q10H [facility] Last Admin: 11/27/16 05:04 Dose: 100 mls/hr Insulin Human Regular (Humulin R Low) 0 units SC ACHS SHAUN PRN Reason: Protocol Last Admin: 11/27/16 11:28 Dose: 1 units Levothyroxine Sodium (Synthroid) 25 mcg PO 0600 SHAUN Last Admin: 11/27/16 05:04 Dose: 25 mcg Meclizine HCl (Antivert) 25 mg PO Q6H PRN PRN Reason: Dizziness Last Admin: 11/27/16 11:23 Dose: 25 mg Ondansetron HCl (Zofran Inj) 4 mg IVP Q6H PRN PRN Reason: Nausea/Vomiting Last Admin: 11/27/16 09:34 Dose: 4 mg Zolpidem Tartrate (Ambien) 5 mg PO HS PRN; Protocol PRN Reason: Insomnia Last Admin: 11/26/16 21:54 Dose: 5 mg - Labs Labs: 11/26/16 08:30 11/27/16 06:15 PT 10.1 Seconds (9.9-11.8) 11/26/16 08:30 INR 0.94 (0.93-1.08) 11/26/16 08:30 APTT 28.0 Seconds (23.7-30.8) 11/26/16 08:30 - Constitutional Appears: Non-toxic, No Acute Distress, Chronically Ill - Head Exam Head Exam: ATRAUMATIC, NORMOCEPHALIC - Eye Exam Eye Exam: EOMI, PERRL Pupil Exam: NORMAL ACCOMODATION, PERRL - ENT Exam ENT Exam: Mucous Membranes Moist, Normal External Ear Exam, TM's Normal Bilaterally - Neck Exam Neck Exam: Full ROM, Normal Inspection - Respiratory Exam Respiratory Exam: Clear to Ausculation Bilateral, NORMAL BREATHING PATTERN. absent: Rales, Rhonchi, Wheezes - Cardiovascular Exam Cardiovascular Exam: REGULAR RHYTHM, RRR, +S1, +S2 - GI/Abdominal Exam GI & Abdominal Exam: Soft, Normal Bowel Sounds. absent: Distended, Tenderness - Extremities Exam Extremities Exam: Full ROM, Normal Inspection - Back Exam Back Exam: Full ROM, NORMAL INSPECTION - Neurological Exam Neurological Exam: Alert, Awake, CN II-XII Intact, Oriented x3 - Psychiatric Exam Psychiatric exam: Normal Affect, Normal Mood - Skin Skin Exam: Intact, Normal Color Assessment and Plan - Assessment and Plan (Free Text) Assessment: 66 yo female with abdominal pain, nausea, vomiting, diarrhea. Cholecystectomy was performed over 8 months ago. Fever up to 101.5 F. MCRP is showing 5 mm stone in ampulla. No dilitation of the common bile duct. Clinically the patient is getting better. Spoke with Dr. Anguiano, he has performed ERCP today. AST has improved. No leukocytosis. On Rocephin and Flagyl currently. Afebrile now. Will continue on Rocephin and Flagyl. Most likely Dr. Anguiano performed ERCP yesterday. Awaiting report. Clinically improving. 5mm stone in ampulla on MRCP scan. On ERCP, 4mm stone found and sphincterotomy performed. Thank you for allowing me to participate in the care of the patient, we will follow with you.
--- NOTE | 2016-11-27 15:31 | DS ---
DATE: 11/27/2016 FINAL DIAGNOSES: 1. Ascending cholangitis, improving. 2. Chronic type 2 diabetes mellitus. 3. Peptic ulcer disease with gastroesophageal reflux disease. 4. Chronic hypothyroidism. 5. History of cholecystectomy. 6. Anxiety neurosis. 7. Chronic insomnia. 8. Chronic vertigo. DISPOSITION: Transitional care rehab. CONSULTANTS: Dr. Guy Laughlin from infectious disease. Dr. Michelle Anguiano from GI. DISCHARGE MEDICATIONS: Pepcid 20 mg p.o. b.i.d., Flagyl 500 IV q. 8, regular low dose insulin protocol a.c. meals and at bedtime, Synthroid 25 mcg p.o. daily, Antivert 25 mg p.o. q. 6 hours p.r.n. for chronic vertigo, Rocephin 1 g IV q. 24, 0.9 saline at 100 mL per hour and Ambien 500 mg p.o. at bedtime, p.r.n. insomnia. SUMMARY: This is a 66-year-old female who was admitted to [facility] with nausea, vomiting, diarrhea and epigastric and upper abdominal pain in the setting of cholangitis secondary to a 5 mm retained common bile duct stone noted on MRCP. The patient was seen and consultation by gastroenterology, Dr. Michelle Anguiano, who performed an ERCP and removed the retained stone. The patient was also treated with parenteral antibiotics, including Rocephin and Flagyl and was followed by Dr. Guy Laughlin from infectious disease. PHYSICAL EXAMINATION: At the time of her discharge; VITAL SIGNS: Temperature is 97.5, respirations 18, pulse 64 and blood pressure 115/58 with a pulse ox of 100%. LABORATORY DATA: White count 3500, hemoglobin 12.8, hematocrit 38.3, platelets 177,000. Sodium 141, potassium 3.6, chloride 107, bicarbonate 29, BUN 9, creatinine 0.5, random blood sugar is 96. Bilirubin is normal at 0.4. AST is 114, ALT is 193, and alkaline phosphatase is 130. T4 level was normal at 7.3. The patient will be transferred to transitional care rehab for IV antibiotics and the patient and at bedside have been clearly informed that she will need outpatient colonoscopy for completeness sake when medically stable. Hopefully, they will be compliant with the above. Of note, her hepatitis A, B and C serologies were all negative. Adilene Pond MD MTDGerry
--- NOTE | 2016-11-27 17:29 | PN ---
DATE: 11/27/2016 SUBJECTIVE: This 66-year-old female was examined at the bedside, her was present and case was reviewed in detail with nurse practitioner, Gabriela Bauer. The patient is receiving parenteral antibiotics for cholangitis secondary to a now removed 5 mm stone that was extracted from her common bile duct that was found on MRCP and removed by ERCP by Dr. Michelle Anguiano on the afternoon of Friday11/26/2016. The patient was admitted with transaminitis and elevated liver function testing, fever and chills, and today microbiology study show urine and blood cultures with no growth. Patient denies fever or chills, chest pain,shortness of breath or any further nausea or vomiting. PHYSICAL EXAMINATION VITAL SIGNS: Temperature was 98.3, respirations are 18, pulse 68, and blood pressure 115/58 with a pulse ox of 100%. HEENT: Head is normocephalic and atraumatic. Eyes: No icterus. Ears: Clear. Throat: Noninjected. NECK: Supple. HEART: Regular. S1 and S2. LUNGS: Clear. ABDOMEN: Soft. EXTREMITIES: No edema. SKIN: Without rash. NEUROLOGICAL: Intact. PSYCHOLOGICAL: Alert. VASCULAR: Legs are warm to touch. LABORATORY DATA: The teletypesetter monitor shows a normal sinus rhythm there was no reports of any cardiac arrhythmia. Hepatitis A, B, C serology were negative. White count 3500, hemoglobin 12.8, hematocrit 38.3, platelets 177,000. PT/INR 0.94. PTT 28.0. Sodium 141, potassium 3.6, chloride 107, bicarb 29, BUN 9, creatinine 0.5, random blood sugar 96. Bilirubin 0.4, AST 114, ALT 193, and alkaline phosphatase 130. IMPRESSION: This is a 66-year-old female admitted with nausea, vomiting, gastroenteritis who is noted to have a 5 mm retained common bile duct stone on MRCP that was removed by ERCP for which the patient is continuing to receive Rocephin and IV Flagyl parenterally, as recommend by Dr. Guy Laughlin of infectious disease. She also has a history of elevated liver function testing secondary to the cholangitis that needs to be monitored and followed to resolution, also with history of type 2 diabetes mellitus, hypothyroidism, chronic vertigo, anxiety, neurosis, and insomnia, as well as, peptic ulcer disease with gastrointestinal reflex disease. PLAN: Continue Pepcid 20 mg p.o. b.i.d., Flagyl 500 mg IV q.8 hours, regular low dose insulin protocol before meals and bedtime, Synthroid 25 mcg p.o. daily, meclizine 25 mg p.o. q.6 hours p.r.n. anxiety, Rocephin 1 g IV q.24 and Ambien 5 mg p.o. at bedtime p.r.n. insomnia. The patient will continue with physical therapy for ambulation safety and we will complete antibiotic course under the direction of Infectious Disease. The patient is been advised for my self in the presence of her nurse and as well as Dr. Anguiano from, Gastroenterology that she still requires the colonoscopy when medically stable as an outpatient hopefully she will be compliant with this recommendation. Adilene Pond MD MTDGerry
[2016-11-27 17:46] VITALS: BP 112/55; PULSE 61; TEMP 98
--- NOTE | 2016-11-27 23:50 | CP.PCM.PN ---
Subjective - Date & Time of Evaluation Date of Evaluation: 11/27/16 Time of Evaluation: 19:15 Objective - Vital Signs/Intake and Output Vital Signs (last 24 hours): Temp Pulse Resp BP Pulse Ox 98 F 61 18 112/55 L 100 11/27/16 17:45 11/27/16 17:45 11/27/16 17:45 11/27/16 17:45 11/27/16 05:51 Intake and Output: 11/27/16 11/28/16 18:59 06:59 Intake Total 240 Output Total 300 Balance -60 - Labs Labs: 11/26/16 08:30 11/27/16 06:15 PT 10.1 Seconds (9.9-11.8) 11/26/16 08:30 INR 0.94 (0.93-1.08) 11/26/16 08:30 APTT 28.0 Seconds (23.7-30.8) 11/26/16 08:30
--- NOTE | 2016-11-28 11:26 | RAD ---
PROCEDURE: ERCP HISTORY: ERCP COMPARISON: TECHNIQUE: Fluoroscopy was provided in the endoscopy suite. 137 seconds of fluoro time. Six images were submitted. FINDINGS: Study shows partial opacification of the common duct with passage of a balloon catheter. IMPRESSION: As above
== END 2016-11-27 21:06 | DRG 445 ==
LOC: ED 22:39 → ERH 11-23 04:50 → 2RNO 11-23 06:20
PROVIDERS: ADMIT Internal Medicine; ATTEND Internal Medicine
PROC: 0FC98ZZ Extirpation of Matter from Common Bile Duct, Via Natural or Artificial Opening Endoscopic (ICD-10-PCS; principal; 2016-11-26 13:45)
PROC: 0DJ08ZZ Inspection of Upper Intestinal Tract, Via Natural or Artificial Opening Endoscopic (ICD-10-PCS; 2016-11-26 13:45)
DX: K80.30 Calculus of bile duct with cholangitis, unspecified, without obstruction (principal); K52.9 Noninfective gastroenteritis and colitis, unspecified; K44.9 Diaphragmatic hernia without obstruction or gangrene; K31.9 Disease of stomach and duodenum, unspecified; K21.9 Gastro-esophageal reflux disease without esophagitis; D64.9 Anemia, unspecified; K27.9 Peptic ulcer, site unspecified, unspecified as acute or chronic, without hemorrhage or perforation; E11.9 Type 2 diabetes mellitus without complications; E55.9 Vitamin D deficiency, unspecified; E03.9 Hypothyroidism, unspecified; F41.1 Generalized anxiety disorder; F51.04 Psychophysiologic insomnia; R42 Dizziness and giddiness; E78.5 Hyperlipidemia, unspecified; E87.6 Hypokalemia; M81.0 Age-related osteoporosis without current pathological fracture; Z90.49 Acquired absence of other specified parts of digestive tract; Z79.84 Long term (current) use of oral hypoglycemic drugs

== ENCOUNTER 2016-11-27 21:08 | Inpatient (IN) | payer MEDICARE, OTHER ==
[2016-11-27] MEDS: metroNIDAZOLE IV 500 mg/100 ml 500 MG/100 ML BAG IVPB SCH (23:49)
[2016-11-28] MEDS: Benzocaine/Menthol (Cepacol) Lozenge MT PRN (00:02)
[2016-11-28 04:32] VITALS: BMI 25.7
--- NOTE | 2016-11-28 04:39 | CP.PCM.PN ---
Subjective - Date & Time of Evaluation Date of Evaluation: 11/28/16 Time of Evaluation: 04:37 - Subjective Subjective: S:Patient was seen at bedside in presence of nurse. Requests something for sleep. Speaks mostly [place]. Received ambien 5 mg po earlier. Pertinent medical record was reviewed. O: Last Vital Signs 3 Temp 98.2 F 11/27/16 22:00 Pulse 78 11/27/16 22:00 Resp 18 11/27/16 22:00 BP 115/72 11/27/16 22:00 Pulse Ox 98 11/27/16 22:00 Awake, alert,not in distress. LUNG:Normal breathing pattern. A:Adjustment insomnia. P:Benadryl 25 mg po X1. Objective - Vital Signs/Intake and Output Vital Signs (last 24 hours): Temp Pulse Resp BP Pulse Ox 98.2 F 78 18 115/72 98 11/27/16 22:00 11/27/16 22:00 11/27/16 22:00 11/27/16 22:00 11/27/16 22:00 Intake and Output: 11/27/16 11/28/16 18:59 06:59 Intake Total 120 Balance 120 - Medications Medications: Current Medications Acetaminophen (Tylenol 325mg Tab) 650 mg PO Q6H PRN; Protocol PRN Reason: Fever >100.4 F Last Admin: 11/27/16 23:49 Dose: 650 mg Benzocaine/Menthol (Cepacol Sore Throat) 1 magaly MT Q8H PRN PRN Reason: Sore Throat Last Admin: 11/28/16 00:02 Dose: 1 magaly Famotidine (Pepcid) 20 mg PO BID SHAUN PRN Reason: Protocol Metronidazole (Flagyl) 500 mg in 100 mls @ 100 mls/hr IVPB Q8 SHAUN PRN Reason: Protocol Last Admin: 11/27/16 23:49 Dose: 100 mls/hr Ceftriaxone Sodium (Rocephin 1 Gram Ivpb) 1 gm in 100 mls @ 100 mls/hr IVPB 0600 SHAUN PRN Reason: Protocol Sodium Chloride (Sodium Chloride 0.9%) 1,000 mls @ 60 mls/hr IV .[id number] SHAUN PRN Reason: Protocol Insulin Human Regular (Humulin R Low) 0 units SC ACHS SHAUN PRN Reason: Protocol Levothyroxine Sodium (Synthroid) 25 mcg PO 0600 SHAUN PRN Reason: Protocol Meclizine HCl (Antivert) 25 mg PO Q6H PRN; Protocol PRN Reason: Dizziness Ondansetron HCl (Zofran Inj) 4 mg IVP Q6H PRN; Protocol PRN Reason: Nausea/Vomiting
[2016-11-28] MEDS: Levothyroxine 25 MCG TAB PO SCH (05:04)
[2016-11-28] MEDS: metroNIDAZOLE IV 500 mg/100 ml 500 MG/100 ML BAG IVPB SCH ×3 (05:05→22:27)
[2016-11-28] MEDS: Insulin Reg-LOW-Coverage SC SCH ×5 (07:30→22:41)
[2016-11-28 07:58] LABS: BASO # 0.03 K/mm3 (0.0-2.0); BASO % 0.8 % (0.0-3.0); EOS # 0.1 (0.0-0.7); EOS % 3.6 % (1.5-5.0); GRAN # 1.59 (1.4-6.5); GRAN % 44.2 % (50.0-68.0); HEMATOCRIT 32.8 % (36.0-48.0); LYMPH # 1.4 (1.2-3.4); MEAN CORPUSCULAR HEMOGLOBIN 30.7 pg (25.0-35.0); MEAN CORPUSCULAR HGB CONC 32.6 g/dl (31.0-37.0); MEAN PLATELET VOLUME 9.7 fl (7.0-11.0); MONO # 0.4 (0.1-0.6); MONO % 11.4 % (1.0-6.0); RED CELL DISTRIBUTION WIDTH 14.3 % (11.5-14.5); WHITE BLOOD COUNT 3.6 10^3/ul (4.5-11.0)
[2016-11-28 08:10] LABS: ALB/GLOB RATIO 1.2 (1.1-1.8); ALKALINE PHOSPHATASE 123 U/L (38-133); ALT/SGPT 154 U/L (7-56); AMYLASE 45 U/L (35-125); AST/SGOT 73 U/L (15-39); BILIRUBIN,TOTAL 0.5 mg/dL (0.2-1.3); BLOOD UREA NITROGEN 5 mg/dL (7-21); CALCIUM 8.6 mg/dL (8.4-10.5); CARBON DIOXIDE 28 mmol/L (21-33); CHLORIDE 105 mmol/L (95-110); GFR AFRICAN-AMERICAN > 60; GLUCOSE,RANDOM 87 mg/dL (70-110); LIPASE 53 U/L (23-300); POTASSIUM 3.4 mmol/L (3.6-5.0); SODIUM 141 mmol/L (132-148); TOTAL PROTEIN 5.8 g/dL (5.8-8.3)
[2016-11-28] MEDS: cefTRIAXone 1 gm 1 GM/100 ML BAG IVPB SCH (08:58)
[2016-11-28] MEDS: Sodium Chloride 0.9% 1,000 ML IV SCH ×2 (09:00→13:11)
[2016-11-28] MEDS ORDERED: Potassium Chloride 20 mEq ER Tab PO ONE ×2 (10:38→11:30)
--- NOTE | 2016-11-28 11:45 | CP.PCM.PN ---
Subjective - Date & Time of Evaluation Date of Evaluation: 11/28/16 Time of Evaluation: 11:41 - Subjective Subjective: Patient has very poor veins,needs iv access. Objective - Vital Signs/Intake and Output Vital Signs (last 24 hours): Temp Pulse Resp BP Pulse Ox 98.1 F 68 18 110/58 L 97 11/28/16 10:00 11/28/16 10:00 11/28/16 10:00 11/28/16 10:00 11/28/16 10:00 Intake and Output: 11/28/16 11/28/16 06:59 18:59 Intake Total 120 Balance 120 - Medications Medications: Current Medications Acetaminophen (Tylenol 325mg Tab) 650 mg PO Q6H PRN; Protocol PRN Reason: Fever >100.4 F Last Admin: 11/27/16 23:49 Dose: 650 mg Benzocaine/Menthol (Cepacol Sore Throat) 1 magaly MT Q8H PRN PRN Reason: Sore Throat Last Admin: 11/28/16 00:02 Dose: 1 magaly Famotidine (Pepcid) 20 mg PO BID SHAUN PRN Reason: Protocol Last Admin: 11/28/16 10:24 Dose: 20 mg Metronidazole (Flagyl) 500 mg in 100 mls @ 100 mls/hr IVPB Q8 SHAUN PRN Reason: Protocol Last Admin: 11/28/16 05:05 Dose: 100 mls/hr Ceftriaxone Sodium (Rocephin 1 Gram Ivpb) 1 gm in 100 mls @ 100 mls/hr IVPB 0600 SHAUN PRN Reason: Protocol Last Admin: 11/28/16 08:58 Dose: 100 mls/hr Sodium Chloride (Sodium Chloride 0.9%) 1,000 mls @ 60 mls/hr IV .[id number] SHAUN PRN Reason: Protocol Last Admin: 11/28/16 09:00 Dose: 60 mls/hr Insulin Human Regular (Humulin R Low) 0 units SC ACHS SHAUN PRN Reason: Protocol Last Admin: 11/28/16 08:58 Dose: Not Given Levothyroxine Sodium (Synthroid) 25 mcg PO 0600 SHAUN PRN Reason: Protocol Last Admin: 11/28/16 05:04 Dose: 25 mcg Meclizine HCl (Antivert) 25 mg PO Q6H PRN; Protocol PRN Reason: Dizziness Ondansetron HCl (Zofran Inj) 4 mg IVP Q6H PRN; Protocol PRN Reason: Nausea/Vomiting - Labs Labs: 11/28/16 07:00 11/28/16 07:00 - Constitutional Appears: No Acute Distress Assessment and Plan - Assessment and Plan (Free Text) Assessment: Poor venous access Plan: Hep lock inserted in the R hand. # 24 angiocath used.
--- NOTE | 2016-11-28 14:22 | PN ---
DATE: 11/28/2016 SUBJECTIVE: This is a 66-year-old female who was examined at her bedside. Her case was reviewed in detail with herself, her and her nurse Airam Herrera. The patient remains anxious and continues her treatment with parental antibiotics for cholangitis secondary to a now removed 5 mm common bile duct stone. The patient also has comorbidities of chronic anxiety, chronic insomnia, and hypothyroidism as well as type II diabetes mellitus. She also has hyperlipidemia, and peptic ulcer disease with GERD. PHYSICAL EXAMINATION GENERAL: At the present time, the patient is lying in bed, denying any headaches, fever, chills, shortness of breath or chest pain. VITAL SIGNS: Her temperature is 98.1, respirations are 18, pulse is 68, and blood pressure is 110/58 with a pulse ox of 97% on room air. HEENT: Head is normocephalic and atraumatic. Eyes: No icterus. Ears: Clear. Throat: Non-injected. NECK: Supple. HEART: Regular. S1 and S2. No pathological rubs, murmurs, or gallops. LUNGS: Clear to auscultation. ABDOMEN: Soft and nontender. EXTREMITIES: No clubbing, no cyanosis, and no edema. SKIN: Without rash. NEUROLOGICAL: Intact. PSYCHOLOGICAL: Alert. VASCULAR: Legs are warm to touch. LABORATORY DATA: Her white count is 3600, hemoglobin is 10.7, hematocrit is 32.8, and platelets are 164,000. Sodium is 141, potassium is 3.4, chloride is 105, bicarbonate is 28, BUN is 5, creatinine is 0.5, and random blood sugar is 87. Bilirubin is 0.5 and normal, AST is 73, ALT is 154, and alkaline phosphatase is 123. IMPRESSION: This is a 66-year-old female with cholangitis secondary to a now removed 5 mm common bile duct stone that was removed by Dr. Anguiano, gastroenterology with an endoscopic retrograde cholangiopancreatography with comorbidities of anxiety, insomnia, chronic vertigo, type II diabetes mellitus, peptic ulcer disease with GERD, and hypothyroidism. PLAN: At present is to continue Rocephin 1 g IV q 24 h. and Flagyl 500 mg IV q. 8 h. She was noted to have Ambien 5 mg by mouth at bed time p.r.n. insomnia, Antivert 25 mg by mouth q. 6 h. p.r.n. vertigo, and regular low dose insulin coverage before meals and bedtime. I will supplement her with one dose of potassium chloride 40 mEq. She was ordered to receive Pepcid 20 mg by mouth two times a day, 0.9 saline at 60 mL per hour, Synthroid 25 mcg by mouth daily, and Zofran 4 mg IV q. 6 hours. p.r.n. nausea or vomiting. She will have a repeat potassium level and AST and ALT, in the a. m.. She is ordered to have physical and occupational therapy daily. Her case was reviewed in detail with herself, her , nursing and social service and ultimate plan will be for discharge to home when stable. Greater than fifty minutes were spent in the care and management of this patient today. Adilene Pond MD MTDD
--- NOTE | 2016-11-28 19:35 | CP.PCM.CON ---
History of Present Illness - History of Present Illness History of Present Illness: Infectious Disease Follow Up: November 28, 2016 66 yo female with abdominal pain, nausea, vomiting, and diarrhea for 24 hours prior to admission to [facility]. The patient has an extensive medical history that includes hyperlipidemia, hypothyroidism, chronic vertigo, history of cholecystectomy. She described mid-epigastric pain that worsened as she ate. 3 episodes of vomiting prior to hospitalization. The patient has had an uneventful hospital course. She appears to be improving with fluids and IV antibiotics. CT scan and MRCP done. No blockages noted. Both studies are mostly unremarkable but shows a 5mm stone in the CBD. Patient taken to ERCP by Dr. Anguiano yesterday. He performed stone removal ( one 4 mm stone found) and sphincterotomy. Overall the patient states that she feels better. Afebrile today. No new issues. Past Patient History - Infectious Disease Hx of Infectious Diseases: None - Past Social History Smoking Status: Former Smoker - CARDIAC Hx Hypercholesterolemia: Yes - PULMONARY Hx Respiratory Disorders: No - NEUROLOGICAL Hx Dizziness: Yes (vertigo) - HEENT Hx HEENT Problems: No - RENAL Hx Chronic Kidney Disease: No - ENDOCRINE/METABOLIC Hx Diabetes Mellitus Type 2: Yes - HEMATOLOGICAL/ONCOLOGICAL Hx Blood Disorders: No - INTEGUMENTARY Hx Dermatological Problems: No - MUSCULOSKELETAL/RHEUMATOLOGICAL Hx Falls: No - GASTROINTESTINAL Hx Gall Bladder Disease: Yes (cholecystectomy) - GENITOURINARY/GYNECOLOGICAL Hx Genitourinary Disorders: No - PSYCHIATRIC Hx Psychophysiologic Disorder: No - SURGICAL HISTORY Hx Surgeries: Yes - ANESTHESIA Hx Anesthesia Reactions: No Hx Malignant Hyperthermia: No Meds Allergies/Adverse Reactions: Allergies Allergy/AdvReac Type Severity Reaction Status Date / Time No Known Allergies Allergy Verified 11/27/16 23:15 - Medications Medications: Current Medications Acetaminophen (Tylenol 325mg Tab) 650 mg PO Q6H PRN; Protocol PRN Reason: Fever >100.4 F Last Admin: 11/27/16 23:49 Dose: 650 mg Benzocaine/Menthol (Cepacol Sore Throat) 1 magaly MT Q8H PRN PRN Reason: Sore Throat Last Admin: 11/28/16 00:02 Dose: 1 magaly Famotidine (Pepcid) 20 mg PO BID SHAUN PRN Reason: Protocol Last Admin: 11/28/16 17:03 Dose: 20 mg Metronidazole (Flagyl) 500 mg in 100 mls @ 100 mls/hr IVPB Q8 SHAUN PRN Reason: Protocol Last Admin: 11/28/16 13:54 Dose: 100 mls/hr Ceftriaxone Sodium (Rocephin 1 Gram Ivpb) 1 gm in 100 mls @ 100 mls/hr IVPB 0600 SHAUN PRN Reason: Protocol Last Admin: 11/28/16 08:58 Dose: 100 mls/hr Sodium Chloride (Sodium Chloride 0.9%) 1,000 mls @ 60 mls/hr IV .[id number] SHAUN PRN Reason: Protocol Last Admin: 11/28/16 13:11 Dose: 60 mls/hr Insulin Human Regular (Humulin R Low) 0 units SC ACHS SHAUN PRN Reason: Protocol Last Admin: 11/28/16 18:29 Dose: 1 units Levothyroxine Sodium (Synthroid) 25 mcg PO 0600 [facility] PRN Reason: Protocol Last Admin: 11/28/16 05:04 Dose: 25 mcg Meclizine HCl (Antivert) 25 mg PO Q6H PRN; Protocol PRN Reason: Dizziness Ondansetron HCl (Zofran Inj) 4 mg IVP Q6H PRN; Protocol PRN Reason: Nausea/Vomiting Zolpidem Tartrate (Ambien) 5 mg PO HS PRN; Protocol PRN Reason: Insomnia Physical Exam - Constitutional Appears: Non-toxic, No Acute Distress, Chronically Ill - Head Exam Head Exam: ATRAUMATIC, NORMOCEPHALIC - Eye Exam Eye Exam: EOMI, PERRL Pupil Exam: NORMAL ACCOMODATION, PERRL - ENT Exam ENT Exam: Mucous Membranes Moist, Normal External Ear Exam, TM's Normal Bilaterally - Neck Exam Neck exam: Positive for: Full Rom, Normal Inspection - Respiratory Exam Respiratory Exam: Clear to Auscultation Bilateral, NORMAL BREATHING PATTERN. absent: Rales, Rhonchi, Wheezes - Cardiovascular Exam Cardiovascular Exam: REGULAR RHYTHM, RRR, +S1, +S2 - GI/Abdominal Exam GI & Abdominal Exam: Normal Bowel Sounds, Soft. absent: Distended, Tenderness - Extremities Exam Extremities exam: Positive for: full ROM, normal inspection - Neurological Exam Neurological exam: Alert, CN II-XII Intact, Oriented x3 - Psychiatric Exam Psychiatric exam: Normal Affect, Normal Mood - Skin Skin Exam: Intact, Normal Color Results - Vital Signs Recent Vital Signs: Last Vital Signs Temp 98.0 F 11/28/16 17:19 Pulse 72 11/28/16 17:19 Resp 15 11/28/16 17:19 BP 119/50 L 11/28/16 17:19 Pulse Ox 97 11/28/16 10:00 - Labs Result Diagrams: 11/28/16 07:00 11/28/16 07:00 Labs: Laboratory Results - last 24 hr 11/28/16 11/28/16 07:00 07:00 WBC 3.6 L RBC 3.49 L Hgb 10.7 L D Hct 32.8 L MCV 94.0 MCH 30.7 MCHC 32.6 RDW 14.3 Plt Count 164 MPV 9.7 Gran % 44.2 L Lymph % (Auto) 40.0 H [place] % (Auto) 11.4 H Eos % (Auto) 3.6 Baso % (Auto) 0.8 Gran # 1.59 Lymph # 1.4 [place] # 0.4 Eos # 0.1 Baso # 0.03 Sodium 141 Potassium 3.4 L Chloride 105 Carbon Dioxide 28 Anion Gap 11 BUN 5 L Creatinine 0.5 Est GFR ( Amer) > 60 Est GFR (Non-Af Amer) > 60 Random Glucose 87 Calcium 8.6 Total Bilirubin 0.5 AST 73 H ALT 154 H Alkaline Phosphatase 123 Total Protein 5.8 Albumin 3.1 Globulin 2.7 Albumin/Globulin Ratio 1.2 Amylase 45 Lipase 53 Assessment & Plan - Assessment and Plan (Free Text) Assessment: 66 yo female with abdominal pain, nausea, vomiting, diarrhea. Cholecystectomy was performed over 8 months ago. Fever up to 101.5 F. MCRP is showing 5 mm stone in ampulla. No dilitation of the common bile duct. Clinically the patient is getting better. Spoke with Dr. Anguiano, he has performed ERCP today. AST has improved. No leukocytosis. On Rocephin and Flagyl currently. Afebrile now. Will continue on Rocephin and Flagyl. Most likely Dr. Anguiano performed ERCP yesterday. Awaiting report. Clinically improving. 5mm stone in ampulla on MRCP scan. On ERCP, 4mm stone found and sphincterotomy performed. Moved to [facility] for further care. Thank you for allowing me to participate in the care of the patient, we will follow with you.
[2016-11-29] MEDS: metroNIDAZOLE IV 500 mg/100 ml 500 MG/100 ML BAG IVPB SCH ×3 (06:00→21:32)
[2016-11-29] MEDS: cefTRIAXone 1 gm 1 GM/100 ML BAG IVPB SCH (06:01)
[2016-11-29] MEDS: Levothyroxine 25 MCG TAB PO SCH (06:01)
[2016-11-29] MEDS: Insulin Reg-LOW-Coverage SC SCH ×4 (07:15→22:04)
[2016-11-29 07:19] LABS: POTASSIUM 3.6 mmol/L (3.6-5.0)
--- NOTE | 2016-11-29 18:16 | CP.PCM.PN ---
Subjective - Date & Time of Evaluation Date of Evaluation: 11/29/16 Time of Evaluation: 18:00 - Subjective Subjective: Infectious Disease Follow Up: November 29, 2016 66 yo female with abdominal pain, nausea, vomiting, and diarrhea for 24 hours prior to admission to [facility] [place]. The patient has an extensive medical history that includes hyperlipidemia, hypothyroidism, chronic vertigo, history of cholecystectomy. She described mid-epigastric pain that worsened as she ate. 3 episodes of vomiting prior to hospitalization. The patient has had an uneventful hospital course. She appears to be improving with fluids and IV antibiotics. CT scan and MRCP done. No blockages noted. Both studies are mostly unremarkable but shows a 5mm stone in the CBD. Patient taken to ERCP by Dr. Anguiano a few days ago. He performed stone removal (one 4 mm stone found) and sphincterotomy. Overall the patient states that she feels better. Afebrile today. No new issues. Currently on Rocephin and Flagyl for antibiotic therapy. Objective - Vital Signs/Intake and Output Vital Signs (last 24 hours): Temp Pulse Resp BP Pulse Ox 97.9 F 69 18 110/59 L 97 11/29/16 16:57 11/29/16 16:57 11/29/16 16:57 11/29/16 16:57 11/29/16 16:57 - Medications Medications: Current Medications Acetaminophen (Tylenol 325mg Tab) 650 mg PO Q6H PRN; Protocol PRN Reason: Fever >100.4 F Last Admin: 11/27/16 23:49 Dose: 650 mg Benzocaine/Menthol (Cepacol Sore Throat) 1 magaly MT Q8H PRN PRN Reason: Sore Throat Last Admin: 11/28/16 00:02 Dose: 1 magaly Famotidine (Pepcid) 20 mg PO BID SHAUN PRN Reason: Protocol Last Admin: 11/29/16 17:40 Dose: 20 mg Metronidazole (Flagyl) 500 mg in 100 mls @ 100 mls/hr IVPB Q8 SHAUN PRN Reason: Protocol Last Admin: 11/29/16 13:28 Dose: 100 mls/hr Ceftriaxone Sodium (Rocephin 1 Gram Ivpb) 1 gm in 100 mls @ 100 mls/hr IVPB 0600 SHAUN PRN Reason: Protocol Last Admin: 11/29/16 06:01 Dose: 100 mls/hr Sodium Chloride (Sodium Chloride 0.9%) 1,000 mls @ 60 mls/hr IV .[id number] SHAUN PRN Reason: Protocol Last Admin: 11/28/16 13:11 Dose: 60 mls/hr Insulin Human Regular (Humulin R Low) 0 units SC ACHS SHAUN PRN Reason: Protocol Last Admin: 11/29/16 17:27 Dose: Not Given Levothyroxine Sodium (Synthroid) 25 mcg PO 0600 SHAUN PRN Reason: Protocol Last Admin: 11/29/16 06:01 Dose: 25 mcg Meclizine HCl (Antivert) 25 mg PO Q6H PRN; Protocol PRN Reason: Dizziness Ondansetron HCl (Zofran Inj) 4 mg IVP Q6H PRN; Protocol PRN Reason: Nausea/Vomiting Last Admin: 11/29/16 09:55 Dose: 4 mg Zolpidem Tartrate (Ambien) 5 mg PO HS PRN; Protocol PRN Reason: Insomnia Last Admin: 11/28/16 22:26 Dose: 5 mg - Labs Labs: 11/28/16 07:00 11/29/16 06:50 - Constitutional Appears: Non-toxic, No Acute Distress, Chronically Ill - Head Exam Head Exam: ATRAUMATIC, NORMOCEPHALIC - Eye Exam Eye Exam: EOMI, PERRL Pupil Exam: NORMAL ACCOMODATION, PERRL - Neck Exam Neck Exam: Full ROM, Normal Inspection - Respiratory Exam Respiratory Exam: Clear to Ausculation Bilateral, NORMAL BREATHING PATTERN. absent: Rales, Rhonchi, Wheezes - Cardiovascular Exam Cardiovascular Exam: REGULAR RHYTHM, RRR, +S1, +S2 - GI/Abdominal Exam GI & Abdominal Exam: Soft, Normal Bowel Sounds. absent: Distended, Tenderness - Extremities Exam Extremities Exam: Full ROM, Normal Inspection - Neurological Exam Neurological Exam: Alert, Awake, CN II-XII Intact, Oriented x3 - Psychiatric Exam Psychiatric exam: Normal Affect, Normal Mood - Skin Skin Exam: Intact, Normal Color Assessment and Plan - Assessment and Plan (Free Text) Assessment: 66 yo female with abdominal pain, nausea, vomiting, diarrhea. Cholecystectomy was performed over 8 months ago. Fever up to 101.5 F. MCRP is showing 5 mm stone in ampulla. No dilitation of the common bile duct. Clinically the patient is getting better. Spoke with Dr. Anguiano, he has performed ERCP a few so ago. AST has improved. No leukocytosis. On Rocephin and Flagyl currently. Afebrile now. Will continue on Rocephin and Flagyl. Dr. Anguiano performed ERCP during this hospitalization. Clinically improving. 5mm stone in ampulla on MRCP scan. On ERCP, 4mm stone found and sphincterotomy performed. Currently in TRCU for further care. Thank you for allowing me to participate in the care of the patient, we will follow with you.
--- NOTE | 2016-11-30 00:25 | PN ---
DATE: 11/29/2016 SUBJECTIVE: This 66-year-old female was examined at her bedside in the presence of her family and her . Her case was reviewed in detail with her nurse and the patient at present denies fever, chills, chest pain, shortness of breath, nausea, or vomiting. She is tolerating diet and medication. PHYSICAL EXAMINATION: VITAL SIGNS: Temperature is 97.9, respirations 18, pulse 69, and blood pressure 110/59 with a pulse ox of 97% on room air. HEENT: Head is normocephalic and atraumatic. Eyes: No icterus. Ears: Clear. Throat: Non-injected. NECK: Supple. HEART: Regular. S1 and S2. LUNGS: Clear. ABDOMEN: Soft. EXTREMITIES: No edema. SKIN: Without rash. NEUROLOGICAL: Unchanged. PSYCHOLOGICAL: Chronic anxiety. VASCULAR: Legs are warm to touch. LABORATORY DATA: White count 3600, hemoglobin 10.7, hematocrit 32.8, and platelets are 164,000. Sodium is 141, potassium 3.6, chloride 105, bicarbonate 28, BUN 5, creatinine 0.5, and random blood sugar 99, AST 60, ALT 129. IMPRESSION: This is a 66-year-old female admitted with cholangitis with elevated liver function testing and status post ERCP, removal of a 5 mm common bile duct stone with comorbidities of chronic vertigo, peptic ulcer disease with gastroesophageal reflux disease, type 2 diabetes mellitus, hypothyroidism, degenerative arthritis, hyperlipidemia. PLAN: At present is to continue modified medications including Flagyl 500 mg IV q. 8, regular low-dose insulin protocol before meals and at bedtime, Pepcid 20 gm p.o. b.i.d., Rocephin 1 g IV q. 24, Synthroid 25 mcg p.o. daily and Zofran 4 mg IV q. 6 hours p.r.n. nausea and vomiting. She continues on the soft bland diabetic heart-healthy diet. She is receiving physical and occupational therapy. IV fluids will be discontinued. She will have serial liver function testing until they normalized. The case has been discussed in detail with Dr. Guy Laughlin from infectious disease who concurs with antibiotics as outlined at present and ultimate plan will be for discharge to home when medically stable. Greater than fifty minutes were spent in the care and management and discussion of this patient today. Adilene Pond MD [facility] # [id number] CLAUDIA
[2016-11-30] MEDS: cefTRIAXone 1 gm 1 GM/100 ML BAG IVPB SCH (05:27)
[2016-11-30] MEDS: Levothyroxine 25 MCG TAB PO SCH (05:28)
[2016-11-30] MEDS: metroNIDAZOLE IV 500 mg/100 ml 500 MG/100 ML BAG IVPB SCH ×3 (05:38→21:27)
[2016-11-30] MEDS: Insulin Reg-LOW-Coverage SC SCH ×4 (06:57→21:28)
[2016-11-30 07:53] LABS: ALT/SGPT 117 U/L (7-56); AST/SGOT 76 U/L (15-39)
--- NOTE | 2016-11-30 19:10 | CP.PCM.PN ---
Subjective - Date & Time of Evaluation Date of Evaluation: 11/30/16 Time of Evaluation: 17:30 - Subjective Subjective: Infectious Disease Follow Up: November 30, 2016 66 yo female with abdominal pain, nausea, vomiting, and diarrhea for 24 hours prior to [place] [facility] [place] The patient has an extensive medical history that includes hyperlipidemia, hypothyroidism, chronic vertigo, history of cholecystectomy. She described mid-epigastric pain that worsened as she ate. 3 episodes of vomiting prior to hospitalization. The patient has had an uneventful hospital course. She appears to be improving with fluids and IV antibiotics. CT scan and MRCP done. No blockages noted. Both studies are mostly unremarkable but shows a 5mm stone in the CBD. Patient taken to ERCP by Dr. Anguiano a few days ago. He performed stone removal (one 4 mm stone found) and sphincterotomy. Overall the patient states that she feels better. Afebrile today. No new issues. Currently on Rocephin and Flagyl for antibiotic therapy. Objective - Vital Signs/Intake and Output Vital Signs (last 24 hours): Temp Pulse Resp BP Pulse Ox 97.1 F L 76 18 93/57 L 96 11/30/16 10:00 11/30/16 10:00 11/30/16 10:00 11/30/16 10:00 11/30/16 06:00 - Medications Medications: Current Medications Acetaminophen (Tylenol 325mg Tab) 650 mg PO Q6H PRN; Protocol PRN Reason: Fever >100.4 F Last Admin: 11/27/16 23:49 Dose: 650 mg Benzocaine/Menthol (Cepacol Sore Throat) 1 magaly MT Q8H PRN PRN Reason: Sore Throat Last Admin: 11/28/16 00:02 Dose: 1 magaly Famotidine (Pepcid) 20 mg PO BID SHAUN PRN Reason: Protocol Last Admin: 11/30/16 17:54 Dose: 20 mg Metronidazole (Flagyl) 500 mg in 100 mls @ 100 mls/hr IVPB Q8 SHAUN PRN Reason: Protocol Last Admin: 11/30/16 13:02 Dose: 100 mls/hr Ceftriaxone Sodium (Rocephin 1 Gram Ivpb) 1 gm in 100 mls @ 100 mls/hr IVPB 0600 SHAUN PRN Reason: Protocol Last Admin: 11/30/16 05:27 Dose: 100 mls/hr Insulin Human Regular (Humulin R Low) 0 units SC ACHS SHAUN PRN Reason: Protocol Last Admin: 11/30/16 17:54 Dose: Not Given Levothyroxine Sodium (Synthroid) 25 mcg PO 0600 SHAUN PRN Reason: Protocol Last Admin: 11/30/16 05:28 Dose: 25 mcg Meclizine HCl (Antivert) 25 mg PO Q6H PRN; Protocol PRN Reason: Dizziness Ondansetron HCl (Zofran Inj) 4 mg IVP Q6H PRN; Protocol PRN Reason: Nausea/Vomiting Last Admin: 11/29/16 09:55 Dose: 4 mg Zolpidem Tartrate (Ambien) 5 mg PO HS PRN; Protocol PRN Reason: Insomnia Last Admin: 11/29/16 21:31 Dose: 5 mg - Labs Labs: 11/28/16 07:00 11/29/16 06:50 - Constitutional Appears: Non-toxic, No Acute Distress, Chronically Ill - Head Exam Head Exam: ATRAUMATIC, NORMOCEPHALIC - Eye Exam Eye Exam: EOMI, PERRL Pupil Exam: NORMAL ACCOMODATION, PERRL - ENT Exam ENT Exam: Mucous Membranes Moist, Normal External Ear Exam, TM's Normal Bilaterally - Neck Exam Neck Exam: Full ROM, Normal Inspection - Respiratory Exam Respiratory Exam: Clear to Ausculation Bilateral, NORMAL BREATHING PATTERN. absent: Rales, Rhonchi, Wheezes - Cardiovascular Exam Cardiovascular Exam: REGULAR RHYTHM, RRR, +S1, +S2 - GI/Abdominal Exam GI & Abdominal Exam: Soft, Normal Bowel Sounds. absent: Distended, Tenderness - Extremities Exam Extremities Exam: Full ROM, Normal Inspection - Neurological Exam Neurological Exam: Alert, Awake, CN II-XII Intact, Oriented x3 - Psychiatric Exam Psychiatric exam: Normal Affect, Normal Mood - Skin Skin Exam: Intact, Normal Color Assessment and Plan - Assessment and Plan (Free Text) Assessment: 66 yo female with abdominal pain, nausea, vomiting, diarrhea. Cholecystectomy was performed over 8 months ago. Fever up to 101.5 F. MCRP is showing 5 mm stone in ampulla. No dilitation of the common bile duct. Clinically the patient is getting better. Spoke with Dr. Anguiano, he has performed ERCP a few so ago. AST has improved. No leukocytosis. On Rocephin and Flagyl currently. Afebrile now. Will continue on Rocephin and Flagyl. Dr. Anguiano performed ERCP during this hospitalization. Clinically improving. 5mm stone in ampulla on MRCP scan. On ERCP, 4mm stone found and sphincterotomy performed. Currently in TRCU for further care. Consider total of 7 days of Rocephin. Thank you for allowing me to participate in the care of the patient, we will follow with you.
--- NOTE | 2016-11-30 19:51 | PN ---
DATE: 11/30/2016 SUBJECTIVE: This 66-year-old female was examined at her bedside in the presence of her and case was reviewed with the patient, , and nursing. The patient remains hospitalized status post cholangitis and the ERCP removal of a 5 mm common bile duct stone. Comorbidities include chronic anxiety, chronic insomnia, intermittent chronic vertigo, history of type 2 diabetes mellitus, peptic ulcer disease, GERD, hypothyroidism, and hyperlipidemia as well as degenerative arthritis. The patient has persistent, but improving elevated liver function testing that has required medication adjustment as outlined. At present she denies fever, chills, shortness of breath or chest pain and is cooperating with physical therapy and nursing staff. PHYSICAL EXAMINATION: At present, VITAL SIGNS: Temperature 97.1, respirations 18, pulse 76 and blood pressure 93/57 with a pulse ox of 96% on room air. HEENT: Head is normocephalic and atraumatic. Eyes: No icterus. Ears: Clear. Throat: Non-injected. NECK: Supple. HEART: Regular. S1 and S2. No pathological rubs, murmurs, or gallops. LUNGS: Clear to auscultation. ABDOMEN: Soft and nontender. There is no palpable organomegaly. No rebound. No guarding. No tenderness. EXTREMITIES: Show no clubbing, no cyanosis, and no edema. SKIN: Without rash. NEUROLOGICAL: Unchanged. PSYCHOLOGICAL: Alert. VASCULAR: Legs are warm to touch. LABORATORY DATA: White count 3600, hemoglobin 10.7, hematocrit 32.8, and platelets are 164,000. Sodium is 141, potassium 3.6, chloride 105, bicarbonate 28, BUN 5, creatinine 0.5 and random blood sugar 120. AST 76, ALT 117. IMPRESSION: A 66-year-old female with cholangitis secondary to a now removed 5 mm common bile duct stone with comorbidities of chronic insomnia, chronic anxiety, intermittent chronic vertigo, type 2 diabetes mellitus, peptic ulcer disease with gastroesophageal reflux disease, degenerative arthritis, and hyperlipidemia. PLAN: At present, is to continue diabetic soft bland heart-healthy diet. She continues on physical and occupational therapy. She will continue on Synthroid 25 mcg p.o. daily, Rocephin 1 g IV q. 24 hours and Flagyl 500 mg IV q. 8 hours under the direction of Dr. Guy Laughlin from infectious disease. She also continues with Pepcid 20 mg p.o. b.i.d., regular low insulin coverage, a.c. meals and at bedtime, Antivert 25 mg p.o. q. 6 hours p.r.n. vertigo and Ambien 5 mg p.o. at bedtime p.r.n. insomnia. She will have serial ALT and AST liver function testings. She continues to be counseled and monitored daily. Greater than 50 minutes was spent in the care, review of care, and management of this patient today and all questions were answered for the patient's , nursing, and the case was reviewed with co-consultants. Adilene Pond MD [facility]
[2016-12-01] MEDS: cefTRIAXone 1 gm 1 GM/100 ML BAG IVPB SCH (05:49)
[2016-12-01] MEDS: metroNIDAZOLE IV 500 mg/100 ml 500 MG/100 ML BAG IVPB SCH ×3 (05:49→22:41)
[2016-12-01] MEDS: Levothyroxine 25 MCG TAB PO SCH (05:50)
[2016-12-01] MEDS: Insulin Reg-LOW-Coverage SC SCH ×4 (07:41→21:55)
[2016-12-01 08:31] LABS: ALT/SGPT 113 U/L (7-56); AST/SGOT 80 U/L (15-39)
--- NOTE | 2016-12-01 09:57 | CP.PCM.PN ---
Subjective - Date & Time of Evaluation Date of Evaluation: 11/30/16 Time of Evaluation: 15:30 - Subjective Subjective: This 66-year-old patient with a past medical history of diabetes mellitus, chronic constipation, hypothyroidism, dyslipidemia admitted with the cholangitis patient ERCP on 11/26/2016 had a 5 mm stone removed from CBD patient did have enterotomy and balloon sweep. Post-sweep cholangiogram was clear of stones. LFTs continue to improve. Patient does have only mildly elevated transaminases. No complaints of abdominal pain. Tolerating diet. Her complaints is constipation she said she did not move her bowels for 2 days Objective - Vital Signs/Intake and Output Vital Signs (last 24 hours): Temp Pulse Resp BP Pulse Ox 97.1 F L 76 18 93/57 L 96 11/30/16 10:00 11/30/16 10:00 11/30/16 10:00 11/30/16 10:00 11/30/16 06:00 - Medications Medications: Current Medications Acetaminophen (Tylenol 325mg Tab) 650 mg PO Q6H PRN; Protocol PRN Reason: Fever >100.4 F Last Admin: 11/27/16 23:49 Dose: 650 mg Benzocaine/Menthol (Cepacol Sore Throat) 1 magaly MT Q8H PRN PRN Reason: Sore Throat Last Admin: 11/28/16 00:02 Dose: 1 magaly Famotidine (Pepcid) 20 mg PO BID SHAUN PRN Reason: Protocol Last Admin: 11/30/16 17:54 Dose: 20 mg Metronidazole (Flagyl) 500 mg in 100 mls @ 100 mls/hr IVPB Q8 SHAUN PRN Reason: Protocol Last Admin: 11/30/16 21:27 Dose: 100 mls/hr Ceftriaxone Sodium (Rocephin 1 Gram Ivpb) 1 gm in 100 mls @ 100 mls/hr IVPB 0600 SHAUN PRN Reason: Protocol Last Admin: 11/30/16 05:27 Dose: 100 mls/hr Insulin Human Regular (Humulin R Low) 0 units SC ACHS SHAUN PRN Reason: Protocol Last Admin: 11/30/16 21:28 Dose: Not Given Levothyroxine Sodium (Synthroid) 25 mcg PO 0600 SHAUN PRN Reason: Protocol Last Admin: 11/30/16 05:28 Dose: 25 mcg Meclizine HCl (Antivert) 25 mg PO Q6H PRN; Protocol PRN Reason: Dizziness Ondansetron HCl (Zofran Inj) 4 mg IVP Q6H PRN; Protocol PRN Reason: Nausea/Vomiting Last Admin: 11/29/16 09:55 Dose: 4 mg Zolpidem Tartrate (Ambien) 5 mg PO HS PRN; Protocol PRN Reason: Insomnia Last Admin: 11/30/16 21:27 Dose: 5 mg - Labs Labs: 11/28/16 07:00 11/29/16 06:50 - Constitutional Appears: No Acute Distress - Head Exam Head Exam: ATRAUMATIC, NORMOCEPHALIC - Eye Exam Eye Exam: EOMI, PERRL. absent: Scleral icterus - ENT Exam ENT Exam: Mucous Membranes Dry, Normal Exam - Neck Exam Neck Exam: Full ROM. absent: Lymphadenopathy - Respiratory Exam Respiratory Exam: Clear to Ausculation Bilateral, NORMAL BREATHING PATTERN. absent: Rales, Rhonchi - Cardiovascular Exam Cardiovascular Exam: +S1, +S2. absent: JVD - GI/Abdominal Exam GI & Abdominal Exam: Soft. absent: Tenderness, Mass - Extremities Exam Extremities Exam: Full ROM, Normal Inspection. absent: Calf Tenderness - Neurological Exam Neurological Exam: Alert, Awake, Oriented x3 - Psychiatric Exam Psychiatric exam: Normal Affect, Normal Mood - Skin Skin Exam: Intact, Normal Color Assessment and Plan - Assessment and Plan (Free Text) Assessment: This 66-year-old patient with a past medical history of diabetes mellitus, hypothyroidism, dyslipidemia, chronic constipation, admitted with cholangitis status post ERCP sphincterotomy balloon sweep and removal of the stone on 2016 she is doing well. On IV antibiotics the mildly elevated transaminases could be due to drug-induced ID recommend 7 days total course of antibiotics and this can be discontinued Follow-up of the LFT History of chronic constipation and anemia. The patient would benefit from elective colonoscopy to evaluation EGD revealed only small gastric erosions. Patient is on Pepcid. Follow-up CBC
--- NOTE | 2016-12-01 19:06 | CP.PCM.PN ---
Subjective - Date & Time of Evaluation Date of Evaluation: 12/01/16 Time of Evaluation: 18:00 - Subjective Subjective: Infectious Disease Follow Up: December 01, 2016 66 yo female with abdominal pain, nausea, vomiting, and diarrhea for 24 hours prior to admission to [facility] [place]. The patient has an extensive medical history that includes hyperlipidemia, hypothyroidism, chronic vertigo, history of cholecystectomy. She described mid-epigastric pain that worsened as she ate. 3 episodes of vomiting prior to hospitalization. The patient has had an uneventful hospital course. She appears to be improving with fluids and IV antibiotics. CT scan and MRCP done. No blockages noted. Both studies are mostly unremarkable but shows a 5mm stone in the CBD. Patient taken to ERCP by Dr. Anguiano a few days ago. He performed stone removal (one 4 mm stone found) and sphincterotomy. Overall the patient states that she feels better. Afebrile today. No new issues. Currently on Rocephin and Flagyl for antibiotic therapy. Objective - Vital Signs/Intake and Output Vital Signs (last 24 hours): Temp Pulse Resp BP Pulse Ox 98.3 F 67 18 99/59 L 96 12/01/16 10:00 12/01/16 10:00 12/01/16 10:00 12/01/16 10:00 12/01/16 10:00 - Medications Medications: Current Medications Acetaminophen (Tylenol 325mg Tab) 650 mg PO Q6H PRN; Protocol PRN Reason: Fever >100.4 F Last Admin: 11/27/16 23:49 Dose: 650 mg Benzocaine/Menthol (Cepacol Sore Throat) 1 magaly MT Q8H PRN PRN Reason: Sore Throat Last Admin: 11/28/16 00:02 Dose: 1 magaly Famotidine (Pepcid) 20 mg PO BID SHAUN PRN Reason: Protocol Last Admin: 12/01/16 17:45 Dose: 20 mg Metronidazole (Flagyl) 500 mg in 100 mls @ 100 mls/hr IVPB Q8 SHAUN PRN Reason: Protocol Last Admin: 12/01/16 13:05 Dose: 100 mls/hr Insulin Human Regular (Humulin R Low) 0 units SC ACHS SHAUN PRN Reason: Protocol Last Admin: 12/01/16 17:44 Dose: Not Given Levothyroxine Sodium (Synthroid) 25 mcg PO 0600 SHAUN PRN Reason: Protocol Last Admin: 12/01/16 05:50 Dose: 25 mcg Meclizine HCl (Antivert) 25 mg PO Q6H PRN; Protocol PRN Reason: Dizziness Ondansetron HCl (Zofran Inj) 4 mg IVP Q6H PRN; Protocol PRN Reason: Nausea/Vomiting Last Admin: 11/29/16 09:55 Dose: 4 mg Zolpidem Tartrate (Ambien) 5 mg PO HS PRN; Protocol PRN Reason: Insomnia Last Admin: 11/30/16 21:27 Dose: 5 mg - Labs Labs: 11/28/16 07:00 11/29/16 06:50 - Constitutional Appears: Non-toxic, No Acute Distress, Chronically Ill - Head Exam Head Exam: ATRAUMATIC, NORMOCEPHALIC - Eye Exam Eye Exam: EOMI, PERRL Pupil Exam: NORMAL ACCOMODATION, PERRL - ENT Exam ENT Exam: Mucous Membranes Moist, Normal External Ear Exam, TM's Normal Bilaterally - Neck Exam Neck Exam: Full ROM, Normal Inspection - Respiratory Exam Respiratory Exam: Clear to Ausculation Bilateral, NORMAL BREATHING PATTERN. absent: Rales, Rhonchi, Wheezes - Cardiovascular Exam Cardiovascular Exam: REGULAR RHYTHM, RRR, +S1, +S2 - GI/Abdominal Exam GI & Abdominal Exam: Soft, Normal Bowel Sounds. absent: Distended, Tenderness - Extremities Exam Extremities Exam: Full ROM, Normal Inspection - Neurological Exam Neurological Exam: Alert, Awake, CN II-XII Intact, Oriented x3 - Psychiatric Exam Psychiatric exam: Normal Affect, Normal Mood - Skin Skin Exam: Intact, Normal Color Assessment and Plan - Assessment and Plan (Free Text) Assessment: 66 yo female with abdominal pain, nausea, vomiting, diarrhea. Cholecystectomy was performed over 8 months ago. Fever up to 101.5 F. MCRP is showing 5 mm stone in ampulla. No dilitation of the common bile duct. Clinically the patient is getting better. Spoke with Dr. Anguiano, he has performed ERCP a few so ago. AST has improved. No leukocytosis. On Rocephin and Flagyl currently. Afebrile now. Will continue on Rocephin and Flagyl. Dr. Anguiano performed ERCP during this hospitalization. Clinically improving. 5mm stone in ampulla on MRCP scan. On ERCP, 4mm stone found and sphincterotomy performed. Currently in TRCU for further care. Consider total of 7 days of Rocephin. Thank you for allowing me to participate in the care of the patient, we will follow with you.
--- NOTE | 2016-12-01 22:50 | PN ---
DATE: 12/01/2016 SUBJECTIVE: This 66-year-old female who was examined at her bedside in the presence of her and her case has been reviewed with her nurse and Dr. Anguiano from GI as well as Dr. Guy Laughlin from infectious disease. She remains hospitalized with deconditioning and need for physical and occupational therapy with cholangitis secondary to a now removed 5 mm common bile duct stone for which she underwent ERCP, sphincterotomy and stone removal. The patient has been having her LFTs monitored daily and is receiving parenteral antibiotics for cholangitis. Today, the patient complained of obstipation and the patient and was ordered to have a stat dosage of lactulose 30 mL p.o. x1. She denies any fevers, chills, shortness of breath or chest pain and there has been no further nausea or vomiting. PHYSICAL EXAMINATION: VITAL SIGNS: Temperature is 98.3, respirations 18, pulse 67, and blood pressure 99/59 with a pulse ox of 96% on room air. HEENT: Head is normocephalic and atraumatic. Eyes: No icterus. Ears: Clear. Throat: Non-injected. NECK: Supple. HEART: Regular. S1 and S2. LUNGS: Clear. ABDOMEN: Soft. No rebound. No guarding. No tenderness. EXTREMITIES: No clubbing, no cyanosis, and no edema. SKIN: Without rash. NEUROLOGICAL: Intact. PSYCHOLOGICAL: Alert. VASCULAR: Legs are warm to touch. LABORATORY DATA: White count 3600, hemoglobin 10.7, hematocrit 32.8, and platelets are 164,000. Her AST was 80. Her ALT was 113 and random blood sugar was 144. IMPRESSION: This 66-year-old female with acute cholangitis secondary to a common bile duct stone, now removed with ERCP and sphincterotomy causing elevated liver function testing and also with chronic obstipation, anemia of chronic disease, hypothyroidism, degenerative arthritis and hyperlipidemia. PLAN: At present is to discontinue Rocephin since the patient has received a 7-day course completion and she will continue on Flagyl 500 mg IV q. [address] Anguiano from gastroenterology. She continues on low does regular insulin coverage a.c.,meals and bedtime, Pepcid 20 mg p.o. b.i.d., Synthroid 25 mcg p.o. daily, Zofran 4 mg IV q. 6 hours p.r.n. nausea and vomiting. She will receive a stat dose of lactulose 20 mg p.o. for obstipation and has ordered for Ambien 5 mg p.o. at bedtime p.r.n. insomnia. She continues on a heart-healthy diabetic diet. She is order to have physical and occupational therapy. She will have serial AST and ALT levels and repeat hemoglobin and hematocrit in the a.m. The patient has also been advised that she will need colonoscopy for completeness sake as an outpatient when all of these current issues are resolved. The patient is aware and is aware and hopefully will follow these recommendations upon discharge. Adilene Pond MD MTDD
[2016-12-02] MEDS: metroNIDAZOLE IV 500 mg/100 ml 500 MG/100 ML BAG IVPB SCH ×3 (05:35→21:52)
[2016-12-02] MEDS: Levothyroxine 25 MCG TAB PO SCH (05:35)
[2016-12-02] MEDS: Insulin Reg-LOW-Coverage SC SCH ×3 (07:05→17:33)
[2016-12-02 07:10] LABS: HEMATOCRIT 35.1 % (36.0-48.0)
--- NOTE | 2016-12-02 07:25 | PN ---
DATE: 12/01/2016 SUBJECTIVE: This patient was seen and evaluated earlier. I discussed with the nursing staff in TCU. The patient's was at bedside. Tolerating the diet. No complaints of any abdominal pain. PHYSICAL EXAMINATION: VITAL SIGNS: Stable. HEENT: Atraumatic, anicteric. NECK: Supple. HEART: S1 and S2 heard. LUNGS: Bilateral air entry present. ABDOMEN: Soft, no tenderness. EXTREMITIES: No edema, no cyanosis. LABORATORY DATA: Reviewed. IMPRESSION AND PLAN: 1. This is a 66-year-old patient with a past medical history of diabetes mellitus, status post cholecystectomy, and dyslipidemia, admitted with cholangitis. The patient had an ERCP, sphincterotomy, and removal of a 5-mm stone. Clinically improving. Alkaline phosphatase has normalized. The patient still has elevated transaminases at this point and this could be even related to the medications, antibiotics. We would recommend to complete antibiotic course as per Infectious Disease and to follow up the LFTs. If the transaminases are showing an upward trend, we may have to discontinue the antibiotics as this is most likely cause at the present time. 2. The patient has a history of chronic constipation, anemia, and did not have any colonoscopy done before. The patient has been on Linzess at home. I would recommend elective colonoscopy once the patient improves after a month's time. The patient was advised to follow up in our office to have this procedure scheduled. The details were given to the patient. The patient's was at bedside. The patient had an upper GI endoscopy done at the same time of ERCP, which showed a lot of gastric erosions, continue the PPI for at least a course of 6 to 8 weeks' time. Thank you very much for allowing us to participate in the care of the patient. Michelle Anguiano MD
[2016-12-02 07:36] LABS: ALT/SGPT 101 U/L (7-56); AST/SGOT 65 U/L (15-39)
--- NOTE | 2016-12-02 19:00 | PN ---
SUBJECTIVE: This is a 66-year-old female who was examined at her bedside and her case was reviewed in detail with herself and nursing. The patient had a bowel movement both yesterday and today with good result after 1 dose of lactulose 20 grams. She denies any fever, chills, chest pain, or shortness of breath; and there has been no reports of nausea or vomiting. PHYSICAL EXAMINATION: VITAL SIGNS: Her temperature is 98.3, respirations 18, pulse 67, and blood pressure 99/59 with a pulse ox of 96% on room air. HEENT: Head is normocephalic and atraumatic. Eyes no icterus. Ears clear. Throat non-injected. NECK: Supple. HEART: Regular. S1 and S2. LUNGS: Clear. ABDOMEN: Soft and nontender. No palpable organomegaly. No rebound. No guarding. No tenderness. EXTREMITIES: No clubbing, no cyanosis, no edema. SKIN: Without rash. NEUROLOGICAL: Intact. PSYCHOLOGICAL: Alert. VASCULAR: Legs are warm to touch. LABORATORY DATA: Hemoglobin 11.5, hematocrit 35.1. AST 65, previously 80, ALT 101, previously 113. Random blood sugar 106. Sodium 141, potassium 3.6, chloride 105, bicarbonate 28, BUN 5, creatinine 0.5. Amylase 45, lipase 53. IMPRESSION: A 66-year-old female with status post endoscopic retrograde cholangiopancreatography, common bile duct stone removal with sphincterotomy and comorbidities of cholangitis improving as well as comorbidities of chronic intermittent vertigo, history of hyperlipidemia, hypothyroidism, irritable bowel syndrome, and degenerative arthritis. PLAN: At present is to continue Flagyl 500 mg IV q. 12, regular low dose insulin coverage before meals and bedtime, Pepcid 20 mg p.o. b.i.d, Synthroid 25 mcg p.o. daily, Zofran 4 mg IV q. 6 hours. p.r.n. nausea or vomiting and I will order lactulose 30 g p.o. daily p.r.n. obstipation. The patient will have daily liver function testing and ultimate plan will be for discharge to home when medically stable. She continues to receive physical and occupational therapy and her overall prognosis remains good. Greater than fifty minutes was spent in the management this patient today and discussion of her case with herself, family, nursing and co-consultants. Adilene Pond MD [facility] # [id number] CLAUDIA
--- NOTE | 2016-12-02 23:36 | CP.PCM.PN ---
Subjective - Date & Time of Evaluation Date of Evaluation: 12/02/16 Time of Evaluation: 22:15 - Subjective Subjective: Infectious Disease Follow Up: December 02, 2016 66 yo female with abdominal pain, nausea, vomiting, and diarrhea for 24 hours prior to admission to [facility] The patient has an extensive medical history that includes hyperlipidemia, hypothyroidism, chronic vertigo, history of cholecystectomy. She described mid-epigastric pain that worsened as she ate. 3 episodes of vomiting prior to hospitalization. The patient has had an uneventful hospital course. She appears to be improving with fluids and IV antibiotics. CT scan and MRCP done. No blockages noted. Both studies are mostly unremarkable but shows a 5mm stone in the CBD. Patient taken to ERCP by Dr. Anguiano a few days ago. He performed stone removal (one 4 mm stone found) and sphincterotomy. Overall the patient states that she feels better. Afebrile today. No new issues. Currently on Rocephin and Flagyl for antibiotic therapy. Objective - Vital Signs/Intake and Output Vital Signs (last 24 hours): Temp Pulse Resp BP Pulse Ox 98.3 F 73 18 96/58 L 96 12/02/16 16:45 12/02/16 16:45 12/02/16 16:45 12/02/16 16:45 12/02/16 16:45 Intake and Output: 12/02/16 12/03/16 18:59 06:59 Intake Total 780 680 Balance 780 680 - Medications Medications: Current Medications Acetaminophen (Tylenol 325mg Tab) 650 mg PO Q6H PRN; Protocol PRN Reason: Fever >100.4 F Last Admin: 11/27/16 23:49 Dose: 650 mg Benzocaine/Menthol (Cepacol Sore Throat) 1 magaly MT Q8H PRN PRN Reason: Sore Throat Last Admin: 11/28/16 00:02 Dose: 1 magaly Famotidine (Pepcid) 20 mg PO BID SHAUN PRN Reason: Protocol Last Admin: 12/02/16 17:32 Dose: 20 mg Metronidazole (Flagyl) 500 mg in 100 mls @ 100 mls/hr IVPB Q8 SHAUN PRN Reason: Protocol Last Admin: 12/02/16 21:52 Dose: 100 mls/hr Insulin Human Regular (Humulin R Low) 0 units SC ACHS SHAUN PRN Reason: Protocol Last Admin: 12/02/16 17:33 Dose: Not Given Lactulose (Enulose) 20 gm PO HS PRN PRN Reason: Constipation Levothyroxine Sodium (Synthroid) 25 mcg PO 0600 SHAUN PRN Reason: Protocol Last Admin: 12/02/16 05:35 Dose: 25 mcg Meclizine HCl (Antivert) 25 mg PO Q6H PRN; Protocol PRN Reason: Dizziness Ondansetron HCl (Zofran Inj) 4 mg IVP Q6H PRN; Protocol PRN Reason: Nausea/Vomiting Last Admin: 11/29/16 09:55 Dose: 4 mg Zolpidem Tartrate (Ambien) 5 mg PO HS PRN; Protocol PRN Reason: Insomnia Last Admin: 12/02/16 21:51 Dose: 5 mg - Labs Labs: 12/02/16 06:30 11/29/16 06:50 - Constitutional Appears: Non-toxic, No Acute Distress, Chronically Ill - Head Exam Head Exam: ATRAUMATIC, NORMOCEPHALIC - Eye Exam Eye Exam: EOMI, PERRL Pupil Exam: NORMAL ACCOMODATION, PERRL - ENT Exam ENT Exam: Mucous Membranes Moist, Normal External Ear Exam, TM's Normal Bilaterally - Neck Exam Neck Exam: Full ROM, Normal Inspection - Respiratory Exam Respiratory Exam: Clear to Ausculation Bilateral, NORMAL BREATHING PATTERN. absent: Rales, Rhonchi, Wheezes - Cardiovascular Exam Cardiovascular Exam: REGULAR RHYTHM, RRR, +S1, +S2 - GI/Abdominal Exam GI & Abdominal Exam: Soft, Normal Bowel Sounds. absent: Distended, Tenderness - Extremities Exam Extremities Exam: Full ROM, Normal Inspection - Neurological Exam Neurological Exam: Alert, Awake, CN II-XII Intact, Oriented x3 - Psychiatric Exam Psychiatric exam: Normal Affect, Normal Mood - Skin Skin Exam: Intact, Normal Color Assessment and Plan - Assessment and Plan (Free Text) Assessment: 66 yo female with abdominal pain, nausea, vomiting, diarrhea. Cholecystectomy was performed over 8 months ago. Fever up to 101.5 F. MCRP is showing 5 mm stone in ampulla. No dilitation of the common bile duct. Clinically the patient is getting better. Spoke with Dr. Anguiano, he has performed ERCP a few so ago. AST has improved. No leukocytosis. On Rocephin and Flagyl currently. Afebrile now. Will continue on Rocephin and Flagyl. Dr. Anguiano performed ERCP during this hospitalization. Clinically improving. 5mm stone in ampulla on MRCP scan. On ERCP, 4mm stone found and sphincterotomy performed. Currently in TRCU for further care. Consider total of 7 days of Rocephin. No new issues currently. Thank you for allowing me to participate in the care of the patient, we will follow with you.
[2016-12-03] MEDS: Insulin Reg-LOW-Coverage SC SCH ×5 (01:25→21:08)
[2016-12-03] MEDS: metroNIDAZOLE IV 500 mg/100 ml 500 MG/100 ML BAG IVPB SCH ×3 (05:37→21:07)
[2016-12-03] MEDS: Levothyroxine 25 MCG TAB PO SCH (05:38)
[2016-12-03 07:29] LABS: ALT/SGPT 76 U/L (7-56); AST/SGOT 50 U/L (15-39)
--- NOTE | 2016-12-03 18:40 | CP.PCM.PN ---
Subjective - Date & Time of Evaluation Date of Evaluation: 12/03/16 Time of Evaluation: 18:30 - Subjective Subjective: Infectious Disease Follow Up: December 03, 2016 66 yo female with abdominal pain, nausea, vomiting, and diarrhea for 24 hours prior to admission [place] [facility] [place] The patient has an extensive medical history that includes hyperlipidemia, hypothyroidism, chronic vertigo, history of cholecystectomy. She described mid-epigastric pain that worsened as she ate. 3 episodes of vomiting prior to hospitalization. The patient has had an uneventful hospital course. She appears to be improving with fluids and IV antibiotics. CT scan and MRCP done. No blockages noted. Both studies are mostly unremarkable but shows a 5mm stone in the CBD. Patient taken to ERCP by Dr. Anguiano a few days ago. He performed stone removal (one 4 mm stone found) and sphincterotomy. Overall the patient states that she feels better. Afebrile today. No new issues. Currently on Rocephin and Flagyl for antibiotic therapy. Objective - Vital Signs/Intake and Output Vital Signs (last 24 hours): Temp Pulse Resp BP Pulse Ox 98.3 F 78 20 88/52 L 100 12/03/16 16:59 12/03/16 16:59 12/03/16 16:59 12/03/16 16:59 12/03/16 16:59 Intake and Output: 12/03/16 12/03/16 06:59 18:59 Intake Total 680 Balance 680 - Medications Medications: Current Medications Acetaminophen (Tylenol 325mg Tab) 650 mg PO Q6H PRN; Protocol PRN Reason: Fever >100.4 F Last Admin: 11/27/16 23:49 Dose: 650 mg Benzocaine/Menthol (Cepacol Sore Throat) 1 magaly MT Q8H PRN PRN Reason: Sore Throat Last Admin: 11/28/16 00:02 Dose: 1 magaly Famotidine (Pepcid) 20 mg PO BID SHAUN PRN Reason: Protocol Last Admin: 12/03/16 18:02 Dose: 20 mg Metronidazole (Flagyl) 500 mg in 100 mls @ 100 mls/hr IVPB Q8 SHAUN PRN Reason: Protocol Last Admin: 12/03/16 18:01 Dose: 100 mls/hr Insulin Human Regular (Humulin R Low) 0 units SC ACHS SHAUN PRN Reason: Protocol Last Admin: 12/03/16 18:01 Dose: Not Given Lactulose (Enulose) 20 gm PO HS PRN PRN Reason: Constipation Levothyroxine Sodium (Synthroid) 25 mcg PO 0600 SHAUN PRN Reason: Protocol Last Admin: 12/03/16 05:38 Dose: 25 mcg Meclizine HCl (Antivert) 25 mg PO Q6H PRN; Protocol PRN Reason: Dizziness Ondansetron HCl (Zofran Inj) 4 mg IVP Q6H PRN; Protocol PRN Reason: Nausea/Vomiting Last Admin: 11/29/16 09:55 Dose: 4 mg Zolpidem Tartrate (Ambien) 5 mg PO HS PRN; Protocol PRN Reason: Insomnia Last Admin: 12/02/16 21:51 Dose: 5 mg - Labs Labs: 12/02/16 06:30 11/29/16 06:50 - Constitutional Appears: Non-toxic, No Acute Distress, Chronically Ill - Head Exam Head Exam: ATRAUMATIC, NORMOCEPHALIC - Eye Exam Eye Exam: EOMI, PERRL Pupil Exam: NORMAL ACCOMODATION, PERRL - ENT Exam ENT Exam: Mucous Membranes Moist, Normal External Ear Exam, TM's Normal Bilaterally - Neck Exam Neck Exam: Full ROM, Normal Inspection - Respiratory Exam Respiratory Exam: Clear to Ausculation Bilateral, NORMAL BREATHING PATTERN. absent: Rales, Rhonchi, Wheezes - Cardiovascular Exam Cardiovascular Exam: REGULAR RHYTHM, RRR, +S1, +S2 - GI/Abdominal Exam GI & Abdominal Exam: Soft, Normal Bowel Sounds. absent: Distended, Tenderness - Extremities Exam Extremities Exam: Full ROM, Normal Inspection - Neurological Exam Neurological Exam: Alert, Awake, CN II-XII Intact, Oriented x3 - Psychiatric Exam Psychiatric exam: Normal Affect, Normal Mood - Skin Skin Exam: Intact, Normal Color Assessment and Plan - Assessment and Plan (Free Text) Assessment: 66 yo female with abdominal pain, nausea, vomiting, diarrhea. Cholecystectomy was performed over 8 months ago. Fever up to 101.5 F. MCRP is showing 5 mm stone in ampulla. No dilitation of the common bile duct. Clinically the patient is getting better. Spoke with Dr. Anguiano, he has performed ERCP a few so ago. AST has improved. No leukocytosis. On Rocephin and Flagyl currently. Afebrile now. Will continue on Rocephin and Flagyl. Dr. Anguiano performed ERCP during this hospitalization. Clinically improving. 5mm stone in ampulla on MRCP scan. On ERCP, 4mm stone found and sphincterotomy performed. Currently in TRCU for further care. Consider total of 7 days of Rocephin. No new issues currently. Patient doing well overall. Thank you for allowing me to participate in the care of the patient, we will follow with you.
--- NOTE | 2016-12-03 21:29 | PN ---
SUBJECTIVE: This 66-year-old female was examined at her bedside and the case was reviewed with herself, family and nursing. The patient at present is receiving parenteral antibiotics in the setting of cholangitis and has successfully had a 5 mm common bile duct stone removed by ERCP. At present, she denies fever or chills. There is no report of chest pain or shortness of breath, and she is cooperating with the nursing staff and physical therapy. PHYSICAL EXAMINATION: VITAL SIGNS: Show temperature 98.3, respirations 18, pulse 81, and blood pressure 97/60 with a pulse ox of 95% on room air. HEENT: Head is normocephalic and atraumatic. Eyes, no icterus. Ears clear. Throat non-injected. NECK: Supple. HEART: Regular. S1 and S2. LUNGS: Clear. ABDOMEN: Soft, nontender. No palpable organomegaly. No rebound. No guarding. EXTREMITIES: No clubbing, no cyanosis, no edema. SKIN: Without rash. NEUROLOGICAL: Intact. PSYCHOLOGICAL: Alert. VASCULAR: Legs are warm to touch. LABORATORY DATA: Hemoglobin 11.5, hematocrit 35.1. AST 50, ALT 76. Random blood sugar 147. IMPRESSION: A 66-year-old female with cholangitis, improving on intravenous antibiotics and removal of common bile duct stone with comorbidities of chronic insomnia, chronic intermittent vertigo, history of insulin dependent diabetes mellitus, peptic ulcer disease with gastroesophageal reflux disease, hypothyroidism, degenerative arthritis and type 2 diabetes mellitus. PLAN: At present is to continue Zofran 4 mg IV q. 6 hours p.r.n. nausea and vomiting. She will continues on Synthroid 25 mcg p.o. daily, Pepcid 20 mg p.o. b.i.d., regular low-dose insulin coverage a.c. meals and at bedtime, Flagyl 500 mg IV q.8 h., lactulose 20 g p.o. at bedtime p.r.n. obstipation, Antivert 25 mg p.o. q.6 hours p.r.n. vertigo and Ambien 5 mg p.o. at bedtime p.r.n. insomnia. She will continue to have her liver function testing monitored daily. Ultimate plan is for discharge to home when medically stable and the patient has been advised she will need a colonoscopy for completeness-sake in the near future once all of her above acute issues are resolved. Greater than fifty minutes was spent in the management of this patient today. Hopefully, she will be compliant with these recommendations. Adilene Pond MD MTDGerry
[2016-12-04] MEDS: Levothyroxine 25 MCG TAB PO SCH (06:00)
[2016-12-04] MEDS: metroNIDAZOLE IV 500 mg/100 ml 500 MG/100 ML BAG IVPB SCH ×3 (06:18→22:00)
[2016-12-04 06:20] LABS: ALT/SGPT 76 U/L (7-56); AST/SGOT 62 U/L (15-39)
[2016-12-04] MEDS: Insulin Reg-LOW-Coverage SC SCH ×4 (06:34→22:00)
[2016-12-04] MEDS: Benzocaine/Menthol (Cepacol) Lozenge MT PRN (09:34)
--- NOTE | 2016-12-04 13:06 | CP.PCM.PN ---
Subjective - Date & Time of Evaluation Date of Evaluation: 12/04/16 Time of Evaluation: 12:00 - Subjective Subjective: Infectious Disease Follow Up: December 04, 2016 66 yo female with abdominal pain, nausea, vomiting, and diarrhea for 24 hours prior to admission to [facility]. The patient has an extensive medical history that includes hyperlipidemia, hypothyroidism, chronic vertigo, history of cholecystectomy. She described mid-epigastric pain that worsened as she ate. 3 episodes of vomiting prior to hospitalization. The patient has had an uneventful hospital course. She appears to be improving with fluids and IV antibiotics. CT scan and MRCP done. No blockages noted. Both studies are mostly unremarkable but shows a 5mm stone in the CBD. Patient taken to ERCP by Dr. Anguiano a few days ago. He performed stone removal (one 4 mm stone found) and sphincterotomy. Overall the patient states that she feels better. Afebrile today. No new issues. Currently on Rocephin and Flagyl for antibiotic therapy. Nearing completion of Rocephin. Objective - Vital Signs/Intake and Output Vital Signs (last 24 hours): Temp Pulse Resp BP Pulse Ox 98.6 F 81 18 106/71 100 12/04/16 10:41 12/04/16 10:41 12/04/16 10:41 12/04/16 10:41 12/03/16 16:59 - Medications Medications: Current Medications Acetaminophen (Tylenol 325mg Tab) 650 mg PO Q6H PRN; Protocol PRN Reason: Fever >100.4 F Last Admin: 11/27/16 23:49 Dose: 650 mg Benzocaine/Menthol (Cepacol Sore Throat) 1 magaly MT Q8H PRN PRN Reason: Sore Throat Last Admin: 12/04/16 09:34 Dose: 1 magaly Famotidine (Pepcid) 20 mg PO BID SHAUN PRN Reason: Protocol Last Admin: 12/04/16 09:34 Dose: 20 mg Metronidazole (Flagyl) 500 mg in 100 mls @ 100 mls/hr IVPB Q8 SHAUN PRN Reason: Protocol Insulin Human Regular (Humulin R Low) 0 units SC ACHS SHAUN PRN Reason: Protocol Last Admin: 12/04/16 06:34 Dose: Not Given Lactulose (Enulose) 20 gm PO HS PRN PRN Reason: Constipation Levothyroxine Sodium (Synthroid) 25 mcg PO 0600 SHAUN PRN Reason: Protocol Last Admin: 12/04/16 06:00 Dose: 25 mcg Meclizine HCl (Antivert) 25 mg PO Q6H PRN; Protocol PRN Reason: Dizziness Ondansetron HCl (Zofran Inj) 4 mg IVP Q6H PRN; Protocol PRN Reason: Nausea/Vomiting Last Admin: 11/29/16 09:55 Dose: 4 mg Zolpidem Tartrate (Ambien) 5 mg PO HS PRN; Protocol PRN Reason: Insomnia Last Admin: 12/03/16 21:07 Dose: 5 mg - Labs Labs: 12/02/16 06:30 11/29/16 06:50 - Constitutional Appears: Non-toxic, No Acute Distress, Chronically Ill - Head Exam Head Exam: ATRAUMATIC, NORMOCEPHALIC - Eye Exam Eye Exam: EOMI, PERRL Pupil Exam: NORMAL ACCOMODATION, PERRL - ENT Exam ENT Exam: Mucous Membranes Moist, Normal External Ear Exam, TM's Normal Bilaterally - Neck Exam Neck Exam: Full ROM, Normal Inspection - Respiratory Exam Respiratory Exam: Clear to Ausculation Bilateral, NORMAL BREATHING PATTERN. absent: Rales, Rhonchi, Wheezes - Cardiovascular Exam Cardiovascular Exam: REGULAR RHYTHM, RRR, +S1, +S2 - GI/Abdominal Exam GI & Abdominal Exam: Soft, Normal Bowel Sounds. absent: Distended, Tenderness - Extremities Exam Extremities Exam: Full ROM, Normal Inspection - Neurological Exam Neurological Exam: Alert, Awake, CN II-XII Intact, Oriented x3 - Psychiatric Exam Psychiatric exam: Normal Affect, Normal Mood - Skin Skin Exam: Intact, Normal Color Assessment and Plan - Assessment and Plan (Free Text) Assessment: 66 yo female with abdominal pain, nausea, vomiting, diarrhea. Cholecystectomy was performed over 8 months ago. Fever up to 101.5 F. MCRP is showing 5 mm stone in ampulla. No dilitation of the common bile duct. Clinically the patient is getting better. Spoke with Dr. Anguiano, he has performed ERCP a few so ago. AST has improved. No leukocytosis. On Rocephin and Flagyl currently. Afebrile now. Will continue on Rocephin and Flagyl. Dr. Anguiano performed ERCP during this hospitalization. Clinically improving. 5mm stone in ampulla on MRCP scan. On ERCP, 4mm stone found and sphincterotomy performed. Currently in TRCU for further care. Consider total of 7 days of Rocephin. No new issues currently. Patient doing well overall. Nearing completion of Rocephin. Thank you for allowing me to participate in the care of the patient, we will follow with you.
--- NOTE | 2016-12-04 14:51 | CP.PCM.PN ---
Subjective - Date & Time of Evaluation Date of Evaluation: 12/04/16 Time of Evaluation: 10:20 - Subjective Subjective: Seen and examined at the bedside earlier today. The chart was reviewed. Patient denies nausea, vomiting, or abdominal pain. Reports bowel movement, no diarrhea or reports of bleeding. Tolerating oral intake. No acute overnight events reported. Objective - Vital Signs/Intake and Output Vital Signs (last 24 hours): Temp Pulse Resp BP Pulse Ox 98.6 F 81 18 106/71 100 12/04/16 10:41 12/04/16 10:41 12/04/16 10:41 12/04/16 10:41 12/03/16 16:59 - Medications Medications: Current Medications Acetaminophen (Tylenol 325mg Tab) 650 mg PO Q6H PRN; Protocol PRN Reason: Fever >100.4 F Last Admin: 11/27/16 23:49 Dose: 650 mg Benzocaine/Menthol (Cepacol Sore Throat) 1 magaly MT Q8H PRN PRN Reason: Sore Throat Last Admin: 12/04/16 09:34 Dose: 1 magaly Famotidine (Pepcid) 20 mg PO BID SHAUN PRN Reason: Protocol Last Admin: 12/04/16 09:34 Dose: 20 mg Metronidazole (Flagyl) 500 mg in 100 mls @ 100 mls/hr IVPB Q8 SHAUN PRN Reason: Protocol Last Admin: 12/04/16 14:28 Dose: 100 mls/hr Insulin Human Regular (Humulin R Low) 0 units SC ACHS SHAUN PRN Reason: Protocol Last Admin: 12/04/16 11:55 Dose: 2 units Lactulose (Enulose) 20 gm PO HS PRN PRN Reason: Constipation Levothyroxine Sodium (Synthroid) 25 mcg PO 0600 SHAUN PRN Reason: Protocol Last Admin: 12/04/16 06:00 Dose: 25 mcg Meclizine HCl (Antivert) 25 mg PO Q6H PRN; Protocol PRN Reason: Dizziness Ondansetron HCl (Zofran Inj) 4 mg IVP Q6H PRN; Protocol PRN Reason: Nausea/Vomiting Last Admin: 11/29/16 09:55 Dose: 4 mg Ursodiol (Actigall) 300 mg PO BID SHAUN Zolpidem Tartrate (Ambien) 5 mg PO HS PRN; Protocol PRN Reason: Insomnia Last Admin: 12/03/16 21:07 Dose: 5 mg - Labs Labs: 12/02/16 06:30 11/29/16 06:50 - Constitutional Appears: No Acute Distress - Head Exam Head Exam: NORMOCEPHALIC - Eye Exam Eye Exam: Normal appearance. absent: Scleral icterus - ENT Exam ENT Exam: Mucous Membranes Moist - Respiratory Exam Respiratory Exam: NORMAL BREATHING PATTERN. absent: Respiratory Distress - Cardiovascular Exam Cardiovascular Exam: +S1, +S2 - GI/Abdominal Exam GI & Abdominal Exam: Soft, Normal Bowel Sounds. absent: Guarding, Tenderness, Rebound - Extremities Exam Extremities Exam: Normal Capillary Refill. absent: Calf Tenderness, Pedal Edema - Neurological Exam Neurological Exam: Alert, Awake, Oriented x3 Assessment and Plan - Assessment and Plan (Free Text) Assessment: Assessment: Cholangitis status post ERCP with sphincterotomy, balloon sweep and removal of stone Improving elevated transaminitis History of chronic constipation Anemia History of diabetes mellitus Hypothyroidism Plan: Continue to trend LFTs which is improving Continue antibiotics, on Flagyl on lactulose when necessary constipation Continue diet as tolerated Continue Pepcid Will be started on Actigall Monitor H&H May benefit from an elective outpatient colonoscopy in view of chronic constipation and anemia Discussed with Dr. Snell who is covering for Dr. Anguiano.
[2016-12-05] MEDS: metroNIDAZOLE IV 500 mg/100 ml 500 MG/100 ML BAG IVPB SCH (06:04)
[2016-12-05] MEDS: Levothyroxine 25 MCG TAB PO SCH (06:05)
[2016-12-05] MEDS: Insulin Reg-LOW-Coverage SC SCH ×2 (06:29→11:52)
--- NOTE | 2016-12-05 08:09 | PN ---
DATE: 12/04/2016 SUBJECTIVE: This 66-year-old female who was examined at her beside. Her case was reviewed in detail with sanitary aide Dr. Michelle Anguiano, the patient's family, and her nurse Robert. Patient at present denies fevers, chills, shortness of breath, nausea or vomiting. PHYSICAL EXAMINATION: VITAL SIGNS: Temperature of 98.6, respirations 18, pulse 81, and blood pressure 106/71, pulse oximetry is 100% on room air. HEENT: Head is normocephalic and atraumatic. Eyes; no icterus. Ears clear. Throat noninjected. NECK: Supple. HEART: Regular, S1, S2. LUNGS: Clear. ABDOMEN: Soft. Nontender without palpable organomegaly. No rebound. No guarding. No tenderness. EXTREMITIES: No clubbing, no cyanosis, no edema. SKIN: Without rash. NEUROLOGIC: Intact. PSYCHOLOGIC: Alert. VASCULAR: Legs warm to touch. LABORATORY DATA: Hemoglobin 11.5, hematocrit 35.1, random blood sugar 221. AST 62, ALT 76. IMPRESSION AND PLAN: A 66-year-old female status post endoscopic retrograde cholangiopancreatography, sphincterotomy, and the removal of 5 mm common bile duct stone which caused cholangitis for which the patient received a 7-day course of IV Rocephin and it is now completing, Flagyl 500 mg IV q. 8 hours also with intermittent chronic vertigo, insomnia, anxiety, hypothyroidism, degenerative arthritis and history of hyperlipidemia. The plan at present is to continue a diabetic heart healthy diet. She continues on Synthroid 25 mcg p.o. daily, Pepcid 20 mg p.o. b.i.d., regular low dose insulin protocol before meals and at bedtime, Flagyl 500 mg IV q. 8, lactulose 20 g p.o. at bedtime, p.r.n. obstipation. As discussed with Dr. Anguiano, patient will start Actigall 300 mg p.o. b.i.d. She will discontinue her Crestor, cholesterol medication at the present time until liver function testings have normalized. She will need outpatient followup with Dr. Anguiano in the next few weeks for scheduling of repeat liver function testing as well as elective colonoscopy and patient is aware and in agreement with this recommendation. Plan is for discharge in a.m. if medically stable. Hopefully, she will be compliant with GI recommendations as outlined. Greater than fifty minutes was spent in management of this patient. Adilene Pond MD [facility]
[2016-12-05 08:21] LABS: ALT/SGPT 65 U/L (7-56); AST/SGOT 62 U/L (15-39)
[2016-12-05 11:56] VITALS: BP 106/69; PULSE 71; RESP 18; TEMP 98.4; O2SAT 99
--- NOTE | 2016-12-06 01:58 | DS ---
FINAL DIAGNOSES: 1. Cholangitis, improved. 2. Elevated liver function testing, improving. 3. Chronic insomnia. 4. Intermittent chronic vertigo. 5. History of chronic obstipation. 6. Type 2 diabetes mellitus. 7. Peptic ulcer disease with gastroesophageal reflux disease. 8. Hypothyroidism. DISPOSITION: Home. Followup with her PMD, Dr. Patel in one week. She needs outpatient liver function testing followup. Also, the patient and were advised that the patient will need elective colonoscopy in approximately 4 weeks for completeness sake. DISCHARGE MEDICATIONS: Pepcid 20 mg p.o. b.i.d, Lactulose 20 g p.o. at bedtime p.r.n. obstipation, Actigall 300 mg p.o. b.i.d. one month supply. Further doses to be written by PMD or Dr. Anguiano from GI. Jardiance 10 mg p.o. daily, Synthroid 25 mcg p.o. daily and Actos 45 mg p.o. daily. SUMMARY: This 66-year-old female was admitted to [facility] with abdominal pain, elevated liver function testing, and underwent an elective ERCP and sphincterotomy for a retained common bile duct stone. She was treated with further antibiotic therapy with good results. She has a history of previous cholecystectomy. The patient's endoscopy revealed gastritis and the patient was advised that she will need outpatient colonoscopy for completeness sake. PHYSICAL EXAMINATION: VITAL SIGNS: At the time of her discharge; temperature was 98.4, respirations 18, pulse 71 and blood pressure 106/69 with a pulse ox of 99%. LABORATORY DATA: Her hemoglobin was 11.5 with hematocrit 35.1. AST was 62 with ALT of 65. Random blood sugar of 115. Electrolytes showed sodium 141, potassium 3.6, chloride 105, bicarbonate 28, BUN 5, creatinine 0.5, random blood sugar is 115. The patient is discharged to home. She was clearly advised of the need for followup with PMD and GI as outpatient. It should be noted her liver function has dramatically improved with ERCP, sphincterotomy, stone removal and antibiotics. The patient is tolerating diet and medication well. All questions were answered. Meds were reviewed. The patient was advised for any change in signs and symptoms to present directly to the [facility] ER. was aware and in agreement with the above. Greater than fifty minutes was spent in the management of this patient today. Adilene Pond MD [facility]
== END 2016-12-05 14:52 | disposition home or self-care (01) | DRG 445 ==
LOC: TRCU 21:08
PROVIDERS: ADMIT Internal Medicine; ATTEND Internal Medicine
PROC: F07Z9FZ Gait Training/Functional Ambulation Treatment using Assistive, Adaptive, Supportive or Protective Equipment (ICD-10-PCS; principal; 2016-11-29)
PROC: F07Z8FZ Transfer Training Treatment using Assistive, Adaptive, Supportive or Protective Equipment (ICD-10-PCS; 2016-11-29)
PROC: F07Z5FZ Bed Mobility Treatment using Assistive, Adaptive, Supportive or Protective Equipment (ICD-10-PCS; 2016-11-29)
PROC: F07L6ZZ Therapeutic Exercise Treatment of Musculoskeletal System - Lower Back / Lower Extremity (ICD-10-PCS; 2016-11-29)
PROC: F08Z4ZZ Home Management Treatment (ICD-10-PCS; 2016-12-03)
DX: K80.30 Calculus of bile duct with cholangitis, unspecified, without obstruction (principal); K27.9 Peptic ulcer, site unspecified, unspecified as acute or chronic, without hemorrhage or perforation; E11.9 Type 2 diabetes mellitus without complications; E03.9 Hypothyroidism, unspecified; D63.8 Anemia in other chronic diseases classified elsewhere; K29.70 Gastritis, unspecified, without bleeding; K21.9 Gastro-esophageal reflux disease without esophagitis; K59.09 Other constipation; R42 Dizziness and giddiness; E78.5 Hyperlipidemia, unspecified; F51.04 Psychophysiologic insomnia; F41.9 Anxiety disorder, unspecified; M19.90 Unspecified osteoarthritis, unspecified site; Z79.84 Long term (current) use of oral hypoglycemic drugs

== ENCOUNTER 2017-11-21 06:44 | Emergency (ER) | payer MEDICARE, OTHER ==
[2017-11-21 06:45] VITALS: BMI 25.7
[2017-11-21] MEDS ORDERED: Oxycodone/Acetaminophen 5/325 mg Tab PO STA (07:19)
--- NOTE | 2017-11-21 07:22 | ED PDOC ---
Arrival/HPI <Osman Astorga - Last Filed: 11/21/17 10:18> - General Historian: Patient, Spouse - History of Present Illness Time/Duration: 1 hour Symptom Onset: Sudden Symptom Course: Unchanged, Worsening Quality: Stabbing Severity Level: 10 Activities at Onset: Rest Context: Other (fell out of bed) <Titus Singh - Last Filed: 11/21/17 10:54> - General Chief Complaint: Upper Extremity Problem/Injury Time Seen by Provider: 11/21/17 07:09 - History of Present Illness Narrative History of Present Illness (Text): 11/21/17 07:20 Patient is a 67 year old female with PMH of DM2, hypothyroidism, and choledocholithiasis (s/p ERCP in November of 2016) who presents to Emergency department following a fall out of bed 1 hour ago. Patient states that she fell out of bed on to her left shoulder. She explained that her bed is high off the ground and that she is in significant pain. She states she is unable to move her left arm without significant pain. She denies hitting her head, her left leg , or anywhere else. She denies LAL, leg pain, fever, chills, CP, SOB, nausea/ vomiting, or any other symptoms. (Titus Singh) Past Medical History - Provider Review Nursing Documentation Reviewed: Yes - Infectious Disease Hx of Infectious Diseases: None - Cardiac Hx Cardiac Disorders: Yes - Pulmonary Hx Respiratory Disorders: No - Neurological Hx Dizziness: Yes (vertigo) - HEENT Hx HEENT Disorder: No - Renal Hx Renal Disorder: No - Endocrine/Metabolic Hx Diabetes Mellitus Type 2: Yes - Hematological/Oncological Hx Blood Disorders: No - Integumentary Hx Dermatological Disorder: No - Musculoskeletal/Rheumatological Hx Falls: No - Gastrointestinal Hx Gall Bladder Disease: Yes (cholecystectomy) - Genitourinary/Gynecological Hx Genitourinary Disorders: No - Psychiatric Hx Psychophysiologic Disorder: No Hx Substance Use: No - Surgical History Hx Cholecystectomy: Yes - Anesthesia Hx Anesthesia Reactions: No Hx Malignant Hyperthermia: No <Titus Singh - Last Filed: 11/21/17 10:54> Family/Social History - Physician Review Nursing Documentation Reviewed: Yes Family/Social History: No Known Family HX Smoking Status: Former Smoker Hx Alcohol Use: No Hx Substance Use: No <Titus Singh - Last Filed: 11/21/17 10:54> Allergies/Home Meds <Osman Astorga - Last Filed: 11/21/17 10:18> <SamanthaTitus - Last Filed: 11/21/17 10:54> Allergies/Adverse Reactions: Allergies No Known Allergies Allergy (Verified 11/27/16 23:15) Home Medications: Home Meds Medication Instructions Recorded Confirmed Empagliflozin [Jardiance] 10 mg PO DAILY 11/01/16 11/27/16 Levothyroxine [Synthroid] 25 mcg PO DAILY 11/01/16 11/27/16 Pioglitazone [Actos] 45 mg PO DAILY 11/01/16 11/27/16 Ergocalciferol [Drisdol 50,000 1 cap PO Q7D 11/22/16 11/27/16 Intl Units Cap] Review of Systems - Review of Systems Constitutional: absent: Fatigue, Fevers Eyes: absent: Vision Changes ENT: absent: Sore Throat, Rhinorrhea Respiratory: absent: SOB, Cough Cardiovascular: absent: Chest Pain, FERREIRA Gastrointestinal: absent: Abdominal Pain, Nausea, Vomiting Genitourinary Female: absent: Dysuria, Urine Output Changes Musculoskeletal: Neck Pain Skin: absent: Rash Neurological: absent: Headache, Speech Changes Endocrine: absent: Diaphoresis Hemo/Lymphatic: absent: Adenopathy Psychiatric: absent: Anxiety, Depression <Titus Singh - Last Filed: 11/21/17 10:54> Physical Exam Vital Signs Reviewed: Yes Temperature: Afebrile Blood Pressure: Normal Pulse: Regular Respiratory Rate: Normal Appearance: Positive for: Uncomfortable Pain Distress: Severe Mental Status: Positive for: Alert and Oriented X 3 - Systems Exam Head: Present: Atraumatic, Normocephalic Pupils: Present: PERRL Extroacular Muscles: Present: EOMI Conjunctiva: Present: Normal Ears: Present: Normal Mouth: Present: Moist Mucous Membranes Pharnyx: Present: Normal. No: ERYTHEMA, EXUDATE Nose (External): Present: Atraumatic Neck: Present: Normal Range of Motion. No: JVD Respiratory/Chest: Present: Clear to Auscultation. No: Wheezes, Rales, Rhonchi Cardiovascular: Present: Regular Rate and Rhythm. No: Murmurs, Rub, Gallop Abdomen: No: Tenderness, Rebound, Guarding Upper Extremity: Present: Tenderness (significant tenderness to palpation on left shoulder, limited passive and active ROM left shoulder), Neurovascularly Intact, Capillary Refill < 2s. No: Cyanosis, Edema, Deformity Lower Extremity: Present: Normal Inspection. No: Edema Neurological: Present: Speech Normal Skin: No: Warm, Dry Psychiatric: Present: Alert, Oriented x 3 <Titus Singh - Last Filed: 11/21/17 10:54> Vital Signs Temp Pulse Resp BP Pulse Ox 11/21/17 09:11 98.0 F 80 17 98 11/21/17 09:00 98.0 F 80 17 112/57 L 100 11/21/17 06:48 98.1 F 91 H 18 118/59 L 100 Medical Decision Making <Osman Astorga - Last Filed: 11/21/17 10:18> - RAD Interpretation Tray Service Worker: ED Physician, Radiologist <Titus Singh - Last Filed: 11/21/17 10:54> ED Course and Treatment: 11/21/17 07:24 -Patient is in significant pain s/p fall on left shoulder -Will get left clavicle, shoulder, and elbow radiographs -Start with percocet for pain control 11/21/17 08:41 -Clavicle xray revealed distal clavicular fx -No tenting, neurovascularly intact on physical exam -Will plan on outpatient management with sling and pain control -Pain control with naproxen for mild-moderate pain and percocet for severe pain -Patient requested to see Dr. Alexis as they live in [place] -Spoke with Dr. Alexis who also reviewed her xrays and agreed to see her in [place] for follow up (Titus Singh) - RAD Interpretation Narrative RAD Interpretations (Text): 11/21/17 09:31 PROCEDURE: Radiographs of the left clavicle. HISTORY: fall COMPARISON: None. FINDINGS: LEFT CLAVICLE: There is an acute oblique displaced fracture in the midshaft of the clavicle with overlapping of fracture fragments and 1 shaft with inferior displacement. JOINTS: Mild degenerative osteoarthrosis in the acromioclavicular joint. The glenohumeral joint is normal. SOFT TISSUES: Tendon calcification lateral to greater tuberosity of the humerus. OTHER FINDINGS: None. IMPRESSION: Acute oblique displaced fracture in the midshaft of the clavicle with overlapping of fracture fragments and 1 shaft with inferior displacement. Elbow and shoulder xrays without acute fracture (Titus Singh) Radiology Orders: 11/21/17 07:19 CLAVICLE LEFT [RAD] Stat ELBOW LEFT 3 VIEWS ROUTINE [RAD] Stat SHOULDER LEFT [RAD] Stat - Medication Orders Current Medication Orders: Discontinued Medications Oxycodone/Acetaminophen (Percocet 5/325 Mg Tab) 1 tab PO STAT STA Stop: 11/21/17 07:20 Last Admin: 11/21/17 07:27 Dose: 1 tab MAR Pain Assessment Document 11/21/17 07:27 [email or web address] (Rec: 11/21/17 07:29 [id number]) Pain Reassessment Is this a pain reassessment? No Sleep Is patient sleeping during reassessment? No Presence of Pain Presence of Pain Yes Pain Scale Used Pain Scale Used Numeric Location Left, Right or Bilateral Right Pain Location Body Site Arm Description Description Constant Intensity of Pain at present 8 Pain Behavior Facial Grimacing Aggravating Factors Changing Position Alleviating Factors/Management Medication Techniques Alleviating Factors Medication - Scribe Statement The provider has reviewed the documentation as recorded by the Scribe <Osman Astorga - Last Filed: 11/21/17 10:18> <Titus Singh - Last Filed: 11/21/17 10:54> - Scribe Statement Vic Hirsch Patient Seen With Resident: In agreement with resident note which contains more details about the patient. Patient was seen and evaluated with resident. Came up with plan and treatment together. (Osman Astorga) Disposition/Present on Arrival <Osman Astorga - Last Filed: 11/21/17 10:18> - Present on Arrival Any Indicators Present on Arrival: No History of DVT/PE: No History of Uncontrolled Diabetes: No Urinary Catheter: No History of Decub. Ulcer: No History Surgical Site Infection Following: None - Disposition Have Diagnosis and Disposition been Completed?: Yes Disposition Time: 08:46 Patient Plan: Discharge <Titus Singh - Last Filed: 11/21/17 10:54> - Disposition Diagnosis: Clavicle fracture Disposition: HOME/ ROUTINE Patient Problems: Current Active Problems Problem Status Onset Clavicle fracture Acute Condition: STABLE Discharge Instructions (ExitCare): Clavicle Fracture Additional Instructions: please follow with your doctor/specialist. please make an appointment. he is expecting to see you. Prescriptions: Naproxen 500 mg PO BID PRN #14 tablet PRN Reason: Pain, Mild (1-3) oxyCODONE/Acetaminophen [Percocet 5/325 mg Tab] 1 ea PO Q6 PRN #10 tab PRN Reason: Pain, Severe (8-10) Referrals: Jesus Patel Jr., MD [Primary Care Provider] - Follow up with primary Janes Alexis DO [Staff Provider] - Follow up with primary Forms: [employer] (Setswana)
[2017-11-21 09:01] VITALS: BP 112/57; PULSE 80; RESP 17; TEMP 98
[2017-11-21 09:12] VITALS: O2SAT 98
--- NOTE | 2017-11-21 10:28 | RAD ---
Date of service: 11/21/2017 PROCEDURE: Radiographs of the Left Shoulder HISTORY: fall COMPARISON: No prior. FINDINGS: BONES: Bone alignment is normal. There is diffuse bone demineralization. There is no acute displaced fracture or bone destruction. JOINTS: There is mild degenerative osteoarthrosis in the acromioclavicular joint. Glenohumeral and acromioclavicular joints preserved. No osteoarthritis. SOFT TISSUES: NormalThere is lobular calcification posterior to the greater tuberosity of the humerus which may represent calcific tendinitis. OTHER FINDINGS: None. IMPRESSION: No acute displaced fracture or dislocation.
--- NOTE | 2017-11-21 10:29 | RAD ---
Date of service: 11/21/2017 PROCEDURE: Radiographs of the left clavicle. HISTORY: fall COMPARISON: None. FINDINGS: LEFT CLAVICLE: There is an acute oblique displaced fracture in the midshaft of the clavicle with overlapping of fracture fragments and 1 shaft with inferior displacement. JOINTS: Mild degenerative osteoarthrosis in the acromioclavicular joint. The glenohumeral joint is normal. SOFT TISSUES: Tendon calcification lateral to greater tuberosity of the humerus. OTHER FINDINGS: None. IMPRESSION: Acute oblique displaced fracture in the midshaft of the clavicle with overlapping of fracture fragments and 1 shaft with inferior displacement.
--- NOTE | 2017-11-21 10:37 | RAD ---
Date of service: 11/21/2017 PROCEDURE: Radiographs of the left elbow. HISTORY: fall COMPARISON: No prior. FINDINGS: BONES: Bone alignment is normal. There is diffuse bone demineralization. There is no acute displaced fracture or bone destruction. JOINTS: Normal. No osteoarthritis. SOFT TISSUES: Normal. JOINT EFFUSION: None. OTHER FINDINGS: None IMPRESSION: No acute fracture or dislocation.
== END 2017-11-21 09:23 | disposition home or self-care (01) ==
LOC: ED 06:44
DX: S42.022A Displaced fracture of shaft of left clavicle, initial encounter for closed fracture (principal); W06.XXXA Fall from bed, initial encounter; Z87.891 Personal history of nicotine dependence; E11.9 Type 2 diabetes mellitus without complications; E03.9 Hypothyroidism, unspecified